=== PATIENT | male | born 1965 | race American Indian/Alaskan Native ===

== ENCOUNTER 2017-04-20 05:04 | Inpatient (IN) | payer MEDICARE, MEDICAID, OTHER ==
[2017-04-20 05:17] VITALS: BMI 31.5
--- NOTE | 2017-04-20 05:19 | C.PDOC ---
History Of Present Illness 51 year old male presents to the ED as a psych transfer who has been prescreened. Patient admits to drinking a case of beer a day and having suicidal ideations and depression. He denies any physical complaints at this time. Time Seen by Provider: 04/20/17 05:15 History Per: Patient History/Exam Limitations: no limitations Suicide/Self Injury Attempted (Context): None Severity: None Pain Scale Rating Of: 0 Associated Symptoms: Depression, Suicidal Thoughts Involuntary Hold By: None Recent travel outside of the [place]: No Additional History Per: Prior Records Past Medical History Reviewed: Historical Data, Nursing Documentation, Vital Signs Vital Signs: Last Vital Signs Temp 98.4 F 04/20/17 05:20 Pulse 64 04/20/17 05:20 Resp 20 04/20/17 05:20 BP 153/85 H 04/20/17 05:20 Pulse Ox 97 04/20/17 05:20 Family History: States: Unknown Family Hx Review Of Systems Constitutional: Negative for: Fever, Chills Cardiovascular: Negative for: Chest Pain, Palpitations Respiratory: Negative for: Cough, Shortness of Breath Gastrointestinal: Negative for: Nausea, Vomiting, Abdominal Pain, Diarrhea Psych: Positive for: Depression, Suicidal ideation Physical Exam - Physical Exam Appears: Non-toxic, No Acute Distress, Other (Patient is obese. Upon examination is playing guitar and singing. ) Skin: Warm, Dry Head: Atraumatic Eye(s): bilateral: Normal Inspection, PERRL, EOMI Oral Mucosa: Moist Neck: Supple Chest: Symmetrical, No Deformity Cardiovascular: Rhythm Regular Respiratory: No Rales, No Rhonchi, No Stridor, No Wheezing Gastrointestinal/Abdominal: Soft, No Tenderness, No Distention, No Guarding, No Rebound Extremity: Normal ROM, No Tenderness Neurological/Psych: Oriented x3 Medical Decision Making Medical Decision Making: tranfer in for psych/detox/depression pre-screened by psych and outpatient labs reviewed by this MD CONCRETE ANALYST, medically cleared for psych May require Medical Consult for control of DM Disposition Doctor Will See Patient In The: Hospital Counseled Patient/Family Regarding: Studies Performed, Diagnosis - Disposition Disposition: HOSPITALIZED Disposition Time: 05:19 Condition: GOOD - Clinical Impression Clinical Impression: Depression - Scribe Statement The provider has reviewed the documentation as recorded by the Scribcharisse Morrison All medical record entries made by the Scribe were at my direction and personally dictated by me. I have reviewed the chart and agree that the record accurately reflects my personal performance of the history, physical exam, medical decision making, and the department course for this patient. I have also personally directed, reviewed, and agree with the discharge instructions and disposition.
[2017-04-21] MEDS: Multiple Vitamins Tab PO SCH (09:12)
[2017-04-21] MEDS: Metoprolol Succinate 25 mg XL Tab PO SCH (10:05)
--- NOTE | 2017-04-21 10:25 | PCM.PYCHPN ---
Psychiatric Progress Note - Psychiatric Progress Note Patient seen today, length of contact: 16 min Patient Chief Complaint: I was feeling depressed and suicidal.' Problems Identified/Issues Discussed: Patient seen and evaluated, chart reviewed and discussed with the nurse. As per the staff, patient still appears isolated, depressed and withdrawn. Patient still reports depressed mood and reports at times feelings of hopelessness or helplessness. He reports withdrawal symptoms including cramps, back pain and sweating. He is compliant with his medications and denies any side effects. Supportive therapy and psychoeducation were given. Medication Change: Yes (Methdone taper, start Seroquel) Medical Record Reviewed: Yes Mental Status Examination - Cognitive Function Orientation: Person, Place, Situation, Time Memory: Intact Attention: WNL Concentration: Poor Association: WNL Fund of Knowledge: Poor - Mood Mood: Depressed, Anxious - Affect Affect: Constricted, Depressed - Speech Speech: Soft - Formal Thought Process Formal Thought Process: Hallucinations, Delusions, Paranoia - Suicidal Ideation Suicidal Ideation: No - Homicidal Ideation Homicidal Ideation: No Goal/Treatment Plan - Goal/Treatment Plan Need for Continued Stay: Discharge may exacerbated symptoms, Severe functional impairment Progress Toward Problem(s) and Goals/Treatment Plan: Major depressive disorder recurrent severe with psychotic features CBT Psychoeducation Supportive therapy, group therapy, individual therapy Celexa 20 mg by mouth daily Neurontin 300 mg by mouth 3 times a day Remeron 15 mg by mouth daily at bedtime Seroquel 50 mg by mouth daily at bedtime PTSD chronic CBT Psychoeducation Alcohol use disorder severe CBT Psychoeducation Supportive therapy, individual therapy Use [place] for abstinence Alcohol withdrawal uncomplicated CBT Psychoeducation Supportive therapy, individual therapy Ativan when necessary Folic acid/thiamine/multivitamin Opioid use disorder severe CBT Psychoeducation Supportive therapy, individual therapy Use [place] for abstinence Opioid withdrawal CBT Psychoeducation Supportive therapy, individual therapy Clonidine when necessary Methadone taper DM Continue prescribed medications Monitor signs and symptoms HTN Continue prescribed medications Monitor signs and symptoms CAD Continue prescribed medications Monitor signs and symptoms Hypercholestrolimia Continue prescribed medications Monitor signs and symptoms - Smoking Cessation Smoking Cessation Initiated: No
[2017-04-21 11:25] VITALS: RESP 20
--- NOTE | 2017-04-21 13:55 | PCM.PSYCH ---
Initial Psychiatric Evaluation - Initial Psychiatric Evaluation Type of Admission: Voluntary Legal Status: Capacity Chief Complaint (in patient's own words): I was feeling depressed and suicidal.' History of Present Illness and Precipitating Events: Patient is a 51-year-old AAM, who is currently homeless and currently unemployed came to the ED with depressed mood and an incomplete suicidal attempt. As pt tried to OD on heroin, cocaine and alcohol. As pert the patient he has been working as a [employer] in his youth with [employer], with a danna name Tarun Jovel. However, he states that he has a long history of bipolar disorder with psychosis, alcohol dependence and heroin dependence. He has been admitted multiple times in psychiatric hospitals due to depressed mood and suicidal attempts. As per the pt, soon after his last discharge from [place], [place] in 2002, he stopped taking medications and relapsed on drinking. He started abusing increasing amounts of alcohol. Pt states that he went to rehabs as well. He started abusing 15-20 bags of heroin and 2-5 pints of vodka daily. 3 days ago he became increasingly depressed and developed suicidal ideation and started hearing voices to kill himself. He OD on cocaine, 20 bags of heroin and one fifth of alcohol. His friend escorted him to the hospital for further evaluation. Patient reports AH command type, go and kill yourself, VH seeing shadows and persecutory delusions of being followed. He remained extremely depressed throughout the interview and states feelings of hopelessness, helplessness and worthlessness. He reports poor sleep and anhedonia. He also reports withdrawal symptoms i.e., sweating, headaches, anxiety, joint pains, nausea and abdominal cramps. Past psychiatric history Patient reports history of multiple inpatient psychiatric hospitalizations, last discharged from [facility], 2002. He denies any history of follow- up with any psychiatrist. Patient reports history of multiple suicidal attempts in the past, by OD and by jumping in front of the traffic Patient reports history of auditory and visual hallucinations in the past Past medical history DM, HTN, Hep C, C4-C5 fracture Current Medications: Active Medications Generic Name Dose Route Start Last Admin Trade Name Freq PRN Reason Stop Dose Admin Acetaminophen 650 mg 04/20/17 09:27 Tylenol 325mg Tab PO Q6 PRN Fever >100.4 F Diphenhydramine HCl 50 mg 04/20/17 09:27 Benadryl PO Q6 PRN Extra Pyramidal Symptoms Haloperidol 5 mg 04/20/17 09:27 Haldol PO Q8 PRN Moderate Agitation Haloperidol Lactate 5 mg 04/20/17 09:27 Haldol IM Q8 PRN Moderate Agitation Loperamide HCl 2 mg 04/20/17 09:27 Imodium PO Q8 PRN Diarrhea Ondansetron HCl 4 mg 04/20/17 09:27 04/20/17 10:29 Zofran Tab PO 4 mg Q8H PRN Administration Nausea/Vomiting Trazodone HCl 50 mg 04/20/17 22:00 Desyrel PO HS [facility] Past Psychiatric History - Past Psychiatric History Previous Treatment History: Inpatient Pertinent Medical Hx (Current Medical&Sleep Prob, Allergies): Allergies Allergy/AdvReac Type Severity Reaction Status Date / Time acetaminophen [From Tylenol] Allergy Verified 04/20/17 05:34 chlorpromazine Allergy Verified 04/20/17 05:34 [From Thorazine] divalproex sodium Allergy Verified 04/20/17 05:34 [From Depakote] ibuprofen [From Motrin] Allergy Verified 04/20/17 05:34 nitroglycerin Allergy Verified 04/20/17 05:34 penicillin G Allergy Verified 04/20/17 05:34 Clopidogrel [Plavix] 75 mg PO DAILY 04/20/17 Escitalopram [Lexapro] 20 mg PO DAILY 04/20/17 Furosemide [Lasix] 40 mg PO DAILY 04/20/17 Gabapentin [Gralise] 300 mg PO TID 04/20/17 Lisinopril [Zestril] 20 mg PO DAILY 04/20/17 Metoprolol Succinate [Toprol XL] 25 mg PO DAILY 04/20/17 Mirtazapine [Remeron] 15 mg PO HS 04/20/17 Review of Systems - Review of Systems All systems: reviewed and no additional remarkable complaints except - Psychiatric Psychiatric: Anxiety, Depression, Irritability, Suicidal Ideation Mental Status Examination - Personal Presentation Personal Presentation: Looks stated age - Affect Affect: Constricted, Depressed - Motor Activity Motor Activity: Calm - Reliability in Providing Information Reliability in Providing Information: Good - Speech Speech: Organized - Mood Mood: Depressed, Anxious - Formal Thought Process Formal Thought Process: Hallucinations, Delusions, Paranoia - Hallucinations/Delusions Hallucinations: Visual, Auditory Delusions: Persecution - Obsessions/Compulsions Obsessions: No Compulsions: No - Cognitive Functions Orientation: Person, Place, Situation, Time Sensorium: Alert Attention/Concentration: Attentive Abstract Thinking: [place] Estimate of Intelligence: Below average Judgement: Imparied, as evidence by: Poor judgement, Imparied, as evidence by: Lack of insight into illness - Risk Risk: Suicidal, Withdrawal, Diminished functioning - Strength & Assets Inventory Strength & Assets Inventory: Intelligence - Limitations Limitations: Living alone DSM 5 DX - DSM 5 DSM 5 Diagnosis: Major depressive disorder recurrent severe with psychotic features PTSD chronic Alcohol use disorder severe Alcohol withdrawal uncomplicated Opioid use disorder severe Opioid withdrawal Cocaine use disorder severe - Recommended/Plan of Treatment Treatment Recommendations and Plan of Treatment: Major depressive disorder recurrent severe with psychotic features CBT Psychoeducation Supportive therapy, group therapy, individual therapy Celexa 20 mg by mouth daily Neurontin 300 mg by mouth 3 times a day Remeron 15 mg by mouth daily at bedtime Trazodone 50 mg by mouth daily at bedtime PTSD chronic CBT Psychoeducation Alcohol use disorder severe CBT Psychoeducation Supportive therapy, individual therapy Use [place] for abstinence Alcohol withdrawal uncomplicated CBT Psychoeducation Supportive therapy, individual therapy Ativan when necessary Folic acid/thiamine/multivitamin Opioid use disorder severe CBT Psychoeducation Supportive therapy, individual therapy Use [place] for abstinence Opioid withdrawal CBT Psychoeducation Supportive therapy, individual therapy Clonidine when necessary Methadone taper DM Continue prescribed medications Monitor signs and symptoms HTN Continue prescribed medications Monitor signs and symptoms - Smoking Cessation Smoking Cessation Initiated: No
[2017-04-22] MEDS: Multiple Vitamins Tab PO SCH (09:30)
[2017-04-22] MEDS: Metoprolol Succinate 25 mg XL Tab PO SCH (09:31)
--- NOTE | 2017-04-22 13:30 | PCM.PYCHPN ---
Psychiatric Progress Note - Psychiatric Progress Note Patient seen today, length of contact: 16 min Patient Chief Complaint: I was feeling depressed Problems Identified/Issues Discussed: Patient seen and evaluated, chart reviewed and discussed with the nurse. The patient reports improvement in his mood and reports overall improvement in his depression and withdrawal s/s, but he remained isolated and continued to pace back and forth in the hallways. The pt is compliant with medications and reports no side-effects. Symptoms are improving but needs more time to stabilize. After care discussed, support and psychoeducation given. Medication Change: Yes (Methdone taper, start Seroquel) Medical Record Reviewed: Yes Mental Status Examination - Cognitive Function Orientation: Person, Place, Situation, Time Memory: Intact Attention: WNL Concentration: Poor Association: WNL Fund of Knowledge: Poor - Mood Mood: Depressed, Anxious - Affect Affect: Constricted, Depressed - Speech Speech: Soft - Formal Thought Process Formal Thought Process: No Impairment - Suicidal Ideation Suicidal Ideation: No - Homicidal Ideation Homicidal Ideation: No Goal/Treatment Plan - Goal/Treatment Plan Need for Continued Stay: Discharge may exacerbated symptoms, Severe functional impairment Progress Toward Problem(s) and Goals/Treatment Plan: Major depressive disorder recurrent severe with psychotic features CBT Psychoeducation Supportive therapy, group therapy, individual therapy Celexa 20 mg by mouth daily Neurontin 300 mg by mouth 3 times a day Remeron 15 mg by mouth daily at bedtime Seroquel 50 mg by mouth daily at bedtime PTSD chronic CBT Psychoeducation Alcohol use disorder severe CBT Psychoeducation Supportive therapy, individual therapy Use [place] for abstinence Alcohol withdrawal uncomplicated CBT Psychoeducation Supportive therapy, individual therapy Ativan when necessary Folic acid/thiamine/multivitamin Opioid use disorder severe CBT Psychoeducation Supportive therapy, individual therapy Use [place] for abstinence Opioid withdrawal CBT Psychoeducation Supportive therapy, individual therapy Clonidine when necessary Methadone taper DM Continue prescribed medications Monitor signs and symptoms HTN Continue prescribed medications Monitor signs and symptoms CAD Continue prescribed medications Monitor signs and symptoms Hypercholestrolimia Continue prescribed medications Monitor signs and symptoms - Smoking Cessation Smoking Cessation Initiated: No
--- NOTE | 2017-04-22 19:46 | CP.PCM.CON ---
<Jeanette Lr - Last Filed: 04/22/17 19:35> History of Present Illness - History of Present Illness History of Present Illness: Patient is a 51 y/o male with PMH of , who presented to ED with depressed mood and incomplete suicide attempt (tried to OD on heroin, cocaine, and alcohol). Patient consulted by medicine for bilateral lower extremity and pedal edema. Patient says his feet have been hurting him and swollen for the past 6 months. Patient says that although he is homeless he wears shoes. Patient's feet are tender to the touch. Patient says he also has numbness and tingling in both feet for a long time. Patient says he has abdominal pain, nausea, vomiting and diarrhea which he attributes to withdrawing from heroin. Patient denies chest pain and shortness of breath. PMD: none PMH: depression, DM, HTN, HLD, NC in 2011 with stent placement, DVT in 2011, neck surgery with metal plates and screws placed in 2014 PSocial:cocaine, heroin, alcohol (2 pints of vodka per day for 1 and half years) Allergies:Nitroglycerin- anaphylaxis Review of Systems - Constitutional Constitutional: absent: Fatigue, Headache - EENT Eyes: absent: Blurred Vision, Photophobia Ears: absent: Abnormal Hearing Nose/Mouth/Throat: absent: Nasal Congestion, Sinus Pain - Cardiovascular Cardiovascular: Edema, Leg Edema. absent: Chest Pain, Chest Pain at Rest, Chest Pain with Activity, Dyspnea on Exertion, Lightheadedness Additional comments: 2 + pitting edema bilaterally - Respiratory Respiratory: absent: Cough, Dyspnea, Wheezing, Chest Congestion, Excessive Mucous Production - Gastrointestinal Gastrointestinal: Abdominal Pain, Cramping, Diarrhea - Musculoskeletal Musculoskeletal: Myalgias, Tingling Additional comments: joint pain, b/l foot pain - Integumentary Integumentary: Dry Skin Additional comments: very dry skin on feet - Neurological Neurological: Numbness, Tingling Additional comments: feet have tingling and numbness - Psychiatric Psychiatric: Depression Additional comments: as per psych - Endocrine Endocrine: absent: Excessive Sweating, Polyuria - Hematologic/Lymphatic Hematologic: absent: Easy Bleeding, Easy Bruising Past Patient History - Infectious Disease Hx of Infectious Diseases: None - Past Social History Smoking Status: Heavy Smoker > 10 Cigarettes Daily - CARDIAC Hx Congestive Heart Failure: Yes Hx Hypertension: Yes - PULMONARY Hx Respiratory Disorders: No - NEUROLOGICAL Hx Neurological Disorder: No - HEENT Hx HEENT Problems: No - RENAL Hx Chronic Kidney Disease: No - ENDOCRINE/METABOLIC Hx Endocrine Disorders: No - HEMATOLOGICAL/ONCOLOGICAL Hx Hepatitis C: Yes - INTEGUMENTARY Hx Dermatological Problems: No - MUSCULOSKELETAL/RHEUMATOLOGICAL Hx Musculoskeletal Disorders: No - GASTROINTESTINAL Hx Gastrointestinal Disorders: No - GENITOURINARY/GYNECOLOGICAL Hx Genitourinary Disorders: No - PSYCHIATRIC Hx Substance Use: Yes - SURGICAL HISTORY Hx Coronary Artery Bypass Graft: Yes Hx Coronary Stent: Yes Other/Comment: cervical fusion C 4-C5 - ANESTHESIA Hx Anesthesia: Yes Hx Anesthesia Reactions: No Meds Allergies/Adverse Reactions: Allergies Allergy/AdvReac Type Severity Reaction Status Date / Time acetaminophen [From Tylenol] Allergy Verified 04/20/17 05:34 chlorpromazine Allergy Verified 04/20/17 05:34 [From Thorazine] divalproex sodium Allergy Verified 04/20/17 05:34 [From Depakote] ibuprofen [From Motrin] Allergy Verified 04/20/17 05:34 nitroglycerin Allergy Verified 04/20/17 05:34 penicillin G Allergy Verified 04/20/17 05:34 - Medications Medications: Current Medications Acetaminophen (Tylenol 325mg Tab) 650 mg PO Q6 PRN PRN Reason: Fever >100.4 F Last Admin: 04/22/17 13:18 Dose: 650 mg Aspirin (Ecotrin) 81 mg PO DAILY [facility] Last Admin: 04/22/17 09:30 Dose: 81 mg Benztropine Mesylate (Cogentin) 1 mg PO BID [facility] Citalopram Hydrobromide (Celexa) 20 mg PO DAILY [facility] Last Admin: 04/22/17 09:29 Dose: 20 mg Clonidine HCl (Catapres) 0.1 mg PO Q6H PRN PRN Reason: Symptoms of alcohol withdrawal Last Admin: 04/22/17 13:18 Dose: 0.1 mg Clopidogrel Bisulfate (Plavix) 75 mg PO DAILY [facility] Last Admin: 04/22/17 09:31 Dose: 75 mg Cyclobenzaprine HCl (Flexeril) 10 mg PO BID [facility] Last Admin: 04/22/17 17:25 Dose: 10 mg Diphenhydramine HCl (Benadryl) 50 mg PO Q6 PRN PRN Reason: Extra Pyramidal Symptoms Folic Acid (Folic Acid) 1 mg PO DAILY [facility] Last Admin: 04/22/17 09:30 Dose: 1 mg Furosemide (Lasix) 20 mg PO DAILY [facility] Last Admin: 04/22/17 09:31 Dose: 20 mg Gabapentin (Neurontin) 300 mg PO TID [facility] Last Admin: 04/22/17 17:24 Dose: 300 mg Haloperidol (Haldol) 5 mg PO Q8 PRN PRN Reason: Moderate Agitation Haloperidol (Haldol) 5 mg PO BID [facility] Last Admin: 04/22/17 17:24 Dose: 5 mg Haloperidol Lactate (Haldol) 5 mg IM Q8 PRN PRN Reason: Moderate Agitation Hydroxyzine HCl (Atarax) 50 mg PO Q6H PRN PRN Reason: Anxiety Last Admin: 04/22/17 06:30 Dose: 50 mg Lisinopril (Zestril) 20 mg PO DAILY [facility] Last Admin: 04/22/17 09:31 Dose: 20 mg Loperamide HCl (Imodium) 2 mg PO Q8 PRN PRN Reason: Diarrhea Last Admin: 04/21/17 20:51 Dose: 2 mg Lorazepam (Ativan) 1 mg PO Q6 PRN PRN Reason: Symptoms of alcohol withdrawl Last Admin: 04/22/17 18:15 Dose: 1 mg Metformin HCl (Glucophage) 1,000 mg PO BID [facility] Last Admin: 04/22/17 17:24 Dose: 1,000 mg Methadone HCl (Methadone) 10 mg PO DAILY [facility] PRN Reason: Taper Stop: 04/24/17 09:59 Last Admin: 04/22/17 09:29 Dose: 10 mg Metoprolol Succinate (Toprol Xl) 25 mg PO DAILY [facility] Last Admin: 04/22/17 09:31 Dose: 25 mg Mirtazapine (Remeron) 15 mg PO [facility] Last Admin: 04/21/17 21:20 Dose: 15 mg Multivitamins (Hexavitamin) 1 tab PO DAILY [facility] Last Admin: 04/22/17 09:30 Dose: 1 tab Ondansetron HCl (Zofran Tab) 4 mg PO Q8H PRN PRN Reason: Nausea/Vomiting Last Admin: 04/22/17 06:31 Dose: 4 mg Quetiapine Fumarate (Seroquel) 50 mg PO HS [facility] Last Admin: 04/21/17 21:20 Dose: 50 mg Rosuvastatin Calcium (Crestor) 10 mg PO HS [facility] Last Admin: 04/21/17 21:19 Dose: 10 mg Thiamine HCl (Vitamin B1 Tab) 100 mg PO DAILY [facility] Last Admin: 04/22/17 09:30 Dose: 100 mg Physical Exam - Constitutional Appears: Non-toxic, No Acute Distress - Head Exam Head Exam: ATRAUMATIC, NORMAL INSPECTION, NORMOCEPHALIC - Eye Exam Eye Exam: EOMI, Normal appearance, PERRL - Neck Exam Neck exam: Positive for: Normal Inspection - Respiratory Exam Respiratory Exam: Clear to Auscultation Bilateral, NORMAL BREATHING PATTERN. absent: Rales, Rhonchi, Wheezes, Respiratory Distress, Stridor - Cardiovascular Exam Cardiovascular Exam: REGULAR RHYTHM, RRR. absent: Gallop, Rubs - GI/Abdominal Exam GI & Abdominal Exam: Normal Bowel Sounds, Soft. absent: Tenderness - Extremities Exam Extremities exam: Positive for: full ROM, pedal edema, tenderness Additional comments: 2+ edema, tender to touch - Back Exam Back exam: FULL ROM, NORMAL INSPECTION. absent: paraspinal tenderness, rash noted - Neurological Exam Neurological exam: Alert, Oriented x3 - Psychiatric Exam Psychiatric exam: Depressed Additional comments: see psych notes - Skin Skin Exam: Dry, Normal Color Additional comments: very dry, scaling feet Results - Vital Signs Recent Vital Signs: Last Vital Signs Temp 97.8 F 04/22/17 07:57 Pulse 78 04/22/17 15:52 Resp 20 04/22/17 07:57 BP 132/73 04/22/17 15:52 Pulse Ox 97 04/20/17 05:20 - Labs Labs: Laboratory Results - last 24 hr 04/22/17 04/22/17 07:33 15:31 POC Glucose (mg/dL) 334 H 285 H Assessment & Plan (1) Lower extremity edema Assessment and Plan: LE edema and tenderness for 6 months Echo Venous dopplers b/l foot xrays podiatry consulted, Dr. Torres, william appreciated Status: Acute (2) Diabetes Assessment and Plan: HgA1c accuchecks q ACHS Metformin 1000 mg PO BID [facility] Neurontin 300 mg po TID urine microalbumin Status: Acute (3) Hypertension Assessment and Plan: Lasix 20 mg PO Daily Lisinopril 20 mg PO daily Stop metoprolol (due to cocaine abuse) start Cardezem 30 q8h Status: Acute (4) Hx of myocardial infarction Assessment and Plan: aspirin 81 mg po daily clopidogrel 75 mg po daily (due to stent) cardezem 30 po q8h crestor 10 mg po HS lisinopril 20 mg po daily Status: Acute (5) Joint pain Assessment and Plan: ESR, CRP, JAMES, Rheumatoid Factor, and Uric Acid ordered Status: Acute (6) Depression Assessment and Plan: continue with psych for management Status: Acute (7) Prophylactic measure Assessment and Plan: Pepcid 20 mg PO BID Status: Acute <Larissa Ortiz V - Last Filed: 04/23/17 00:07> Meds - Medications Medications: Current Medications Acetaminophen (Tylenol 325mg Tab) 650 mg PO Q6 PRN PRN Reason: Fever >100.4 F Last Admin: 04/22/17 13:18 Dose: 650 mg Aspirin (Ecotrin) 81 mg PO DAILY [facility] Last Admin: 04/22/17 09:30 Dose: 81 mg Benztropine Mesylate (Cogentin) 1 mg PO BID [facility] Last Admin: 04/22/17 20:15 Dose: 1 mg Citalopram Hydrobromide (Celexa) 20 mg PO DAILY [facility] Last Admin: 04/22/17 09:29 Dose: 20 mg Clonidine HCl (Catapres) 0.1 mg PO Q6H PRN PRN Reason: Symptoms of alcohol withdrawal Last Admin: 04/22/17 13:18 Dose: 0.1 mg Clopidogrel Bisulfate (Plavix) 75 mg PO DAILY [facility] Last Admin: 04/22/17 09:31 Dose: 75 mg Cyclobenzaprine HCl (Flexeril) 10 mg PO BID [facility] Last Admin: 04/22/17 17:25 Dose: 10 mg Diltiazem HCl (Cardizem) 30 mg PO Q8H [facility] Diphenhydramine HCl (Benadryl) 50 mg PO Q6 PRN PRN Reason: Extra Pyramidal Symptoms Famotidine (Pepcid) 20 mg PO BID [facility] Folic Acid (Folic Acid) 1 mg PO DAILY [facility] Last Admin: 04/22/17 09:30 Dose: 1 mg Furosemide (Lasix) 20 mg PO DAILY [facility] Last Admin: 04/22/17 09:31 Dose: 20 mg Gabapentin (Neurontin) 300 mg PO TID [facility] Last Admin: 04/22/17 17:24 Dose: 300 mg Haloperidol (Haldol) 5 mg PO Q8 PRN PRN Reason: Moderate Agitation Haloperidol (Haldol) 5 mg PO BID [facility] Last Admin: 04/22/17 17:24 Dose: 5 mg Haloperidol Lactate (Haldol) 5 mg IM Q8 PRN PRN Reason: Moderate Agitation Hydroxyzine HCl (Atarax) 50 mg PO Q6H PRN PRN Reason: Anxiety Last Admin: 04/22/17 19:38 Dose: 50 mg Insulin Human Regular (Novolin R) 0 unit [facility] PRN Reason: Protocol Last Admin: 04/22/17 21:49 Dose: Not Given Ketorolac Tromethamine (Toradol) 30 mg IVP Q6 [facility] Lisinopril (Zestril) 20 mg PO DAILY [facility] Last Admin: 04/22/17 09:31 Dose: 20 mg Loperamide HCl (Imodium) 2 mg PO Q8 PRN PRN Reason: Diarrhea Last Admin: 04/21/17 20:51 Dose: 2 mg Lorazepam (Ativan) 1 mg PO Q6 PRN PRN Reason: Symptoms of alcohol withdrawl Last Admin: 04/22/17 18:15 Dose: 1 mg Metformin HCl (Glucophage) 1,000 mg PO BID [facility] Last Admin: 04/22/17 17:24 Dose: 1,000 mg Methadone HCl (Methadone) 10 mg PO DAILY [facility] PRN Reason: Taper Stop: 04/24/17 09:59 Last Admin: 04/22/17 09:29 Dose: 10 mg Metoprolol Succinate (Toprol Xl) 25 mg PO DAILY [facility] Last Admin: 04/22/17 09:31 Dose: 25 mg Mirtazapine (Remeron) 15 mg PO [facility] Last Admin: 04/22/17 23:01 Dose: 15 mg Multivitamins (Hexavitamin) 1 tab PO DAILY [facility] Last Admin: 04/22/17 09:30 Dose: 1 tab Ondansetron HCl (Zofran Tab) 4 mg PO Q8H PRN PRN Reason: Nausea/Vomiting Last Admin: 04/22/17 06:31 Dose: 4 mg Quetiapine Fumarate (Seroquel) 50 mg PO [facility] Last Admin: 04/22/17 23:01 Dose: 50 mg Rosuvastatin Calcium (Crestor) 10 mg PO HS [facility] Last Admin: 04/22/17 21:46 Dose: 10 mg Thiamine HCl (Vitamin B1 Tab) 100 mg PO DAILY [facility] Last Admin: 04/22/17 09:30 Dose: 100 mg Results - Vital Signs Recent Vital Signs: Last Vital Signs Temp 98.5 F 04/22/17 21:58 Pulse 77 04/22/17 21:58 Resp 20 04/22/17 21:58 BP 133/77 04/22/17 21:58 Pulse Ox 100 04/22/17 21:58 - Labs Labs: Laboratory Results - last 24 hr 04/22/17 04/22/17 04/22/17 07:33 15:31 20:11 POC Glucose (mg/dL) 334 H 285 H 261 H Attending/Attestation - Attestation I have personally seen and examined this patient.: Yes I have fully participated in the care of the patient.: Yes I have reviewed all pertinent clinical information: Yes Notes (Text): Patient seen, examined and case discussed with day-time administration internship. Patient with history of insulin dependent diabetes, history of noncompliance secondary to homelessness, history of NC with stent in 2011, hypertension, hyperlipidemia undergoing psych workup for depression, polysubstance abuse. Medicine consulted for foot deformity. Patient reports b/l leg swelling over time and swelling over both feet, patient reports shoes in spite of homelessness. Patient reports he is being tapered off heroin with methadone. Discussed orders with day-time administration internship. (1) Lower extremity edema Assessment and Plan: * LE edema and tenderness for 6 months * Echo check EF * Venous dopplers r/o DVT * b/l foot xrays given swelling over lateral aspect of right foot * podiatry consulted, Dr. Torres, help appreciated Status: Acute (2) Diabetes Assessment and Plan: * HgA1c, Lipid in AM * accuchecks q ACHS * Metformin 1000 mg PO BID * Neurontin 300 mg po TID * urine microalbumin Status: Chronic (3) Hypertension Assessment and Plan: * Lasix 20 mg PO Daily * Lisinopril 20 mg PO daily * Stop metoprolol (due to cocaine abuse) start Cardezem 30 q8h Status: Chronic (4) Hx of myocardial infarction Assessment and Plan: * aspirin 81 mg po daily * clopidogrel 75 mg po daily (due to stent) * cardezem 30 po q8h * crestor 10 mg po HS * lisinopril 20 mg po daily * d/c lopressor given patient's recent epi. Status: Acute (5) Joint pain Assessment and Plan: * ESR, CRP, JAMES, Rheumatoid Factor, and Uric Acid ordered Status: Acute (6) Depression Assessment and Plan: continue with psych for management Status: Acute (7) Prophylactic measure Assessment and Plan: Pepcid 20 mg PO BID Status: Acute
[2017-04-22] MEDS: (Novolin R) Insulin Human Regular 100 units/ml vial SC SCH (21:49)
--- NOTE | 2017-04-23 00:43 | CP.PCM.PN ---
<AkuaMari - Last Filed: 04/23/17 00:38> Subjective - Date & Time of Evaluation Date of Evaluation: 04/23/17 Time of Evaluation: 00:00 - Subjective Subjective: Medicine Note for Dr. Ortiz, Patient was seen and examined at bedside in where the patient was complaining of chest pain that radiated to the left side of his jaw. He rated the pain 10/10. EKG, CODI, Labs were ordered. Due to the patient's extensive cardiac history, patient was transferred to telemetry. Denied fever, chills, SOB , abdominal pain, n/v/d/c, or urinary symptoms. Objective - Vital Signs/Intake and Output Vital Signs (last 24 hours): Temp Pulse Resp BP Pulse Ox 98.5 F 77 20 133/77 100 04/22/17 21:58 04/22/17 21:58 04/22/17 21:58 04/22/17 21:58 04/22/17 21:58 - Medications Medications: Current Medications Acetaminophen (Tylenol 325mg Tab) 650 mg PO Q6 PRN PRN Reason: Fever >100.4 F Last Admin: 04/22/17 13:18 Dose: 650 mg Aspirin (Ecotrin) 81 mg PO DAILY [facility] Last Admin: 04/22/17 09:30 Dose: 81 mg Benztropine Mesylate (Cogentin) 1 mg PO BID [facility] Last Admin: 04/22/17 20:15 Dose: 1 mg Citalopram Hydrobromide (Celexa) 20 mg PO DAILY [facility] Last Admin: 04/22/17 09:29 Dose: 20 mg Clonidine HCl (Catapres) 0.1 mg PO Q6H PRN PRN Reason: Symptoms of alcohol withdrawal Last Admin: 04/22/17 13:18 Dose: 0.1 mg Clopidogrel Bisulfate (Plavix) 75 mg PO DAILY [facility] Last Admin: 04/22/17 09:31 Dose: 75 mg Cyclobenzaprine HCl (Flexeril) 10 mg PO BID [facility] Last Admin: 04/22/17 17:25 Dose: 10 mg Diltiazem HCl (Cardizem) 30 mg PO Q8H [facility] Diphenhydramine HCl (Benadryl) 50 mg PO Q6 PRN PRN Reason: Extra Pyramidal Symptoms Famotidine (Pepcid) 20 mg PO BID [facility] Folic Acid (Folic Acid) 1 mg PO DAILY [facility] Last Admin: 04/22/17 09:30 Dose: 1 mg Furosemide (Lasix) 20 mg PO DAILY [facility] Last Admin: 04/22/17 09:31 Dose: 20 mg Gabapentin (Neurontin) 300 mg PO TID [facility] Last Admin: 04/22/17 17:24 Dose: 300 mg Haloperidol (Haldol) 5 mg PO Q8 PRN PRN Reason: Moderate Agitation Haloperidol (Haldol) 5 mg PO BID [facility] Last Admin: 04/22/17 17:24 Dose: 5 mg Haloperidol Lactate (Haldol) 5 mg IM Q8 PRN PRN Reason: Moderate Agitation Hydroxyzine HCl (Atarax) 50 mg PO Q6H PRN PRN Reason: Anxiety Last Admin: 04/22/17 19:38 Dose: 50 mg Insulin Human Regular (Novolin R) 0 unit SC [facility], [facility] PRN Reason: Protocol Last Admin: 04/22/17 21:49 Dose: Not Given Ketorolac Tromethamine (Toradol) 30 mg IVP Q6 [facility] Lisinopril (Zestril) 20 mg PO DAILY [facility] Last Admin: 04/22/17 09:31 Dose: 20 mg Loperamide HCl (Imodium) 2 mg PO Q8 PRN PRN Reason: Diarrhea Last Admin: 04/21/17 20:51 Dose: 2 mg Lorazepam (Ativan) 1 mg PO Q6 PRN PRN Reason: Symptoms of alcohol withdrawl Last Admin: 04/22/17 18:15 Dose: 1 mg Metformin HCl (Glucophage) 1,000 mg PO BID [facility] Last Admin: 04/22/17 17:24 Dose: 1,000 mg Methadone HCl (Methadone) 10 mg PO DAILY [facility] PRN Reason: Taper Stop: 04/24/17 09:59 Last Admin: 04/22/17 09:29 Dose: 10 mg Metoprolol Succinate (Toprol Xl) 25 mg PO DAILY [facility] Last Admin: 04/22/17 09:31 Dose: 25 mg Mirtazapine (Remeron) 15 mg PO [facility] Last Admin: 04/22/17 23:01 Dose: 15 mg Multivitamins (Hexavitamin) 1 tab PO DAILY [facility] Last Admin: 04/22/17 09:30 Dose: 1 tab Ondansetron HCl (Zofran Tab) 4 mg PO Q8H PRN PRN Reason: Nausea/Vomiting Last Admin: 04/22/17 06:31 Dose: 4 mg Quetiapine Fumarate (Seroquel) 50 mg PO HS [facility] Last Admin: 04/22/17 23:01 Dose: 50 mg Rosuvastatin Calcium (Crestor) 10 mg PO HS [facility] Last Admin: 04/22/17 21:46 Dose: 10 mg Thiamine HCl (Vitamin B1 Tab) 100 mg PO DAILY [facility] Last Admin: 04/22/17 09:30 Dose: 100 mg - Constitutional Appears: No Acute Distress - Head Exam Head Exam: NORMAL INSPECTION, NORMOCEPHALIC - ENT Exam ENT Exam: Mucous Membranes Moist - Respiratory Exam Respiratory Exam: Clear to Ausculation Bilateral, NORMAL BREATHING PATTERN. absent: Wheezes - Cardiovascular Exam Cardiovascular Exam: REGULAR RHYTHM - GI/Abdominal Exam GI & Abdominal Exam: Soft, Normal Bowel Sounds. absent: Tenderness - Extremities Exam Extremities Exam: Normal Inspection, Pedal Edema. absent: Tenderness - Neurological Exam Neurological Exam: Alert, Awake, Oriented x3 - Skin Skin Exam: Dry, Intact, Normal Color, Warm Assessment and Plan - Assessment and Plan (Free Text) Plan: Chest Pain Assessment and Plan: * EKG x 2 ordered: initial EKG showed NSR @ 67 BPM, with nonspecific ST and T wave abnormalities * Patient transferred to telemetry * F/U EKG, CODI x3, labs Status: Acute Lower extremity edema Assessment and Plan: * LE edema and tenderness for 6 months * Echo check EF * Venous dopplers r/o DVT * b/l foot xrays given swelling over lateral aspect of right foot * podiatry consulted, Dr. Torres, help appreciated Status: Acute Diabetes Assessment and Plan: * HgA1c, Lipid in AM * accuchecks q ACHS * Metformin 1000 mg PO BID * Neurontin 300 mg po TID * urine microalbumin Status: Chronic Hypertension Assessment and Plan: * Lasix 20 mg PO Daily * Lisinopril 20 mg PO daily * Stop metoprolol (due to cocaine abuse) start Cardezem 30 q8h Status: Chronic Hx of myocardial infarction Assessment and Plan: * aspirin 81 mg po daily * clopidogrel 75 mg po daily (due to stent) * cardezem 30 po q8h * crestor 10 mg po HS * lisinopril 20 mg po daily * d/c lopressor given patient's recent epi. Status: Acute Joint pain Assessment and Plan: * ESR, CRP, JAMES, Rheumatoid Factor, and Uric Acid ordered Status: Acute Depression Assessment and Plan: continue with psych for management Status: Acute Prophylactic measure Assessment and Plan: Pepcid 20 mg PO BID Status: Acute <Larissa Ortiz V - Last Filed: 04/23/17 18:12> Objective - Vital Signs/Intake and Output Vital Signs (last 24 hours): Temp Pulse Resp BP Pulse Ox 97.5 F L 70 20 138/68 96 04/23/17 16:00 04/23/17 16:00 04/23/17 16:00 04/23/17 16:00 04/23/17 16:00 Intake and Output: 04/23/17 04/23/17 06:59 18:59 Intake Total 400 Balance 400 - Medications Medications: Current Medications Acetaminophen (Tylenol 325mg Tab) 650 mg PO Q6 PRN PRN Reason: Fever >100.4 F Last Admin: 04/22/17 13:18 Dose: 650 mg Acetaminophen (Tylenol 325mg Tab) 650 mg PO Q6 PRN PRN Reason: Pain, moderate (4-7) Last Admin: 04/23/17 12:44 Dose: 650 mg Aspirin (Ecotrin) 81 mg PO DAILY [facility] Last Admin: 04/23/17 09:19 Dose: 81 mg Benztropine Mesylate (Cogentin) 1 mg PO BID [facility] Last Admin: 04/23/17 09:18 Dose: 1 mg Citalopram Hydrobromide (Celexa) 20 mg PO DAILY [facility] Last Admin: 04/23/17 09:17 Dose: 20 mg Clonidine HCl (Catapres) 0.1 mg PO Q6H PRN PRN Reason: Symptoms of alcohol withdrawal Last Admin: 04/22/17 13:18 Dose: 0.1 mg Clopidogrel Bisulfate (Plavix) 75 mg PO DAILY [facility] Last Admin: 04/23/17 09:16 Dose: 75 mg Cyclobenzaprine HCl (Flexeril) 10 mg PO BID [facility] Last Admin: 04/23/17 09:16 Dose: 10 mg Diltiazem HCl (Cardizem) 30 mg PO Q8H [facility] Last Admin: 04/23/17 14:27 Dose: 30 mg Diphenhydramine HCl (Benadryl) 50 mg PO Q6 PRN PRN Reason: Extra Pyramidal Symptoms Famotidine (Pepcid) 20 mg PO BID [facility] Last Admin: 04/23/17 09:17 Dose: 20 mg Folic Acid (Folic Acid) 1 mg PO DAILY [facility] Last Admin: 04/23/17 09:17 Dose: 1 mg Furosemide (Lasix) 20 mg PO DAILY [facility] Last Admin: 04/23/17 09:15 Dose: 20 mg Gabapentin (Neurontin) 300 mg PO TID [facility] Last Admin: 04/23/17 13:34 Dose: 300 mg Haloperidol (Haldol) 5 mg PO Q8 PRN PRN Reason: Moderate Agitation Haloperidol (Haldol) 5 mg PO BID [facility] Last Admin: 04/23/17 09:20 Dose: 5 mg Haloperidol Lactate (Haldol) 5 mg IM Q8 PRN PRN Reason: Moderate Agitation Hydroxyzine HCl (Atarax) 50 mg PO Q6H PRN PRN Reason: Anxiety Last Admin: 04/23/17 08:10 Dose: 50 mg Insulin Human Regular (Novolin R) 0 unit SC [facility] PRN Reason: Protocol Last Admin: 04/23/17 12:46 Dose: 1 unit Lisinopril (Zestril) 20 mg PO DAILY [facility] Last Admin: 04/23/17 09:18 Dose: 20 mg Loperamide HCl (Imodium) 2 mg PO Q8 PRN PRN Reason: Diarrhea Last Admin: 04/21/17 20:51 Dose: 2 mg Lorazepam (Ativan) 1 mg PO Q6 PRN PRN Reason: Symptoms of alcohol withdrawl Last Admin: 04/23/17 12:44 Dose: 1 mg Metformin HCl (Glucophage) 1,000 mg PO BID [facility] Last Admin: 04/23/17 09:18 Dose: 1,000 mg Methadone HCl (Methadone) 5 mg PO DAILY [facility]1983 PRN Reason: Taper Stop: 04/24/17 09:59 Last Admin: 04/23/17 09:22 Dose: 5 mg Metoprolol Succinate (Toprol Xl) 25 mg PO DAILY [facility] Last Admin: 04/22/17 09:31 Dose: 25 mg Mirtazapine (Remeron) 15 mg PO [facility] Last Admin: 04/22/17 23:01 Dose: 15 mg Multivitamins (Hexavitamin) 1 tab PO DAILY [facility] Last Admin: 04/23/17 09:15 Dose: 1 tab Ondansetron HCl (Zofran Tab) 4 mg PO Q8H PRN PRN Reason: Nausea/Vomiting Last Admin: 04/22/17 06:31 Dose: 4 mg Quetiapine Fumarate (Seroquel) 50 mg PO HS [facility] Last Admin: 04/22/17 23:01 Dose: 50 mg Rosuvastatin Calcium (Crestor) 10 mg PO [facility] Last Admin: 04/22/17 21:46 Dose: 10 mg Thiamine HCl (Vitamin B1 Tab) 100 mg PO DAILY [facility] Last Admin: 04/23/17 09:17 Dose: 100 mg - Labs Labs: 04/23/17 08:11 04/23/17 08:11 Attending/Attestation - Attestation I have personally seen and examined this patient.: Yes I have fully participated in the care of the patient.: Yes I have reviewed all pertinent clinical information, including history, physical exam and plan: Yes Notes (Text): Patient seen, examined, and case discussed with day-news internship. Patient denies chest pain, denies shortness of breathe, denies abdominal pain, denies nausea, denies vomitting, denies dysuria, and report foot pain. Discussed with podiatry, patient will be evaluated with ultrasound and will likely need drainage. Foot Xray (04/23/17): diffuse of pedal edema on right greater than left with more localized edema subcutanous swelling along the lateral margins of both feet at the level of base of metatarsals right greater than left. Patient unable to have MRI given patient has metal in the neck. Patient wants increasing dose of Methadone. Patient is withdrawing from heroin. Patient threatening to leave against medical advice. Discussed with psych, Dr. Telles, patient may have extra dose of Methadone 5mg once if needed given his withdrawal from heroin. Discussed with nurse. Patient ordered for one time dose of Solumedrol 40mg IV X1 to reduce inflammation regarding the foot site. Cardiology build automation engineer--Dr. Travis simms given patient extensive cardiac history. Assessment/Plan (1) Lower extremity edema Assessment and Plan: * podiatry consulted, Dr. Torres, help appreciated * Foot Xray (04/23/17): diffuse of pedal edema on right greater than left with more localized edema subcutanous swelling along the lateral margins of both feet at the level of base of metatarsals right greater than left. Patient unable to have MRI given patient has metal in the neck. * Podiatry will come in tomorrow to assess the foot and possible drainage with bedside ultrasound * LE edema and tenderness for 6 months * Echo check EF: pending * Venous dopplers r/o DVT Pending Status: Acute (2) Diabetes Assessment and Plan: * Uncontrolled * HgA1c: 7.2 Lipid panel: 52 Cholestrol: 114, LDL: 62, HDL: 38 * insulin sliding scale subq * Accuchecks q ACHS * Metformin 1000 mg PO BID * Neurontin 300 mg po TID * Lisinopril 20mg PO daily * urine microalbumin Status: Chronic (3) Hypertension Assessment and Plan: * Lasix 20 mg PO Daily * Lisinopril 20 mg PO daily * Cardizem 30mg PO Q 8hours Status: Chronic (4) Hx of myocardial infarction Assessment and Plan: * Aspirin 81 mg po daily * clopidogrel 75 mg po daily (due to stent) * Crestor 10 mg po HS * lisinopril 20 mg po daily * Cardizem 30mg PO Q 8hours Status: Acute (5) Joint pain Assessment and Plan: * ESR: 26, CRP: 9.86, JAMES, Rheumatoid Factor, and Uric Acid: 7.4 * Flexeril 10mg PO bid Status: Acute (6) Depression Assessment and Plan: * continue with psych for management * Haldol 5mg PO Q8 PRN moderate agitation * Haldol 5mg PO bid * Haldol 5mg IM Q 8 PRN moderate agitation * Atarax 50mg PO Q 6hour PRN anxiety * Seroquel 50mg POqHS * Remeron 15mg POqHS * Benadryl 50mg PO Q 6 PRN * Cogentin 1mg PO bid Status: Acute (7) Opioid disorder Assessment and Plan: * Atarax 50mg PO Q 6hour PRN anxiety * Methadone 5mg PO scheduled per psych Status: Acute (8) Alcohol disorder Assessment and Plan: * Ativan 1mg PO Q 6hour PRN alcohol withdrawal * MVI 1 gayle PO daily * Thiamine 100mg PO daily * Clonidine 0.1mg PO Q 6hour PRN alcohol Status: Acute (9) Prophylactic measure Assessment and Plan: * Pepcid 20 mg PO BID * Tylenol 650mg POQ 6PN > T: 100.4F * Tylenol 650mg PO Q 6PRN moderate pain * Flexeril 10mg PO bid Status: Acute
[2017-04-23 01:40] LABS: HEMOGLOBIN 10.3 g/dL (12.0-18.0); MEAN CELL VOLUME 87.8 fL (80.0-94.0); MEAN CORPUSCULAR HEMOGLOBIN 27.3 pg (27.0-31.0); MEAN CORPUSCULAR HGB CONC 31.1 g/dL (33.0-37.0); MEAN PLATELET VOLUME 9.4 fL (7.2-11.7); RBC 3.79 Mil/uL (4.40-5.90); WHITE BLOOD COUNT 5.9 K/uL (4.8-10.8)
[2017-04-23 01:51] LABS: BLOOD UREA NITROGEN 21 mg/dL (9-20); GFR AFRICAN-AMERICAN > 60; GFR NON-AFRICAN AMERICAN > 60
[2017-04-23 01:52] LABS: CALCIUM 8.9 mg/dl (8.6-10.4); MAGNESIUM 1.9 mg/dL (1.6-2.3)
[2017-04-23 02:00] LABS: CK-MB 1.84 ng/mL (0.0-3.38)
[2017-04-23] MEDS: (Novolin R) Insulin Human Regular 100 units/ml vial SC SCH ×4 (08:01→22:15)
[2017-04-23 08:20] LABS: BASO % 0.2 % (0.0-2.0); EOS # 0.2 K/uL (0.0-0.7); EOS % 4.3 % (0.0-4.0); HEMOGLOBIN 10.3 g/dL (12.0-18.0); LYMPH % 34.7 % (20.0-40.0); MEAN CORPUSCULAR HEMOGLOBIN 27.4 pg (27.0-31.0); MEAN CORPUSCULAR HGB CONC 31.4 g/dL (33.0-37.0); MEAN PLATELET VOLUME 9.2 fL (7.2-11.7); MONO # 0.6 K/uL (0.0-0.8); MONO % 11.2 % (0.0-10.0); NEUT # 2.8 K/uL (1.8-7.0); NEUT % 49.6 % (50.0-75.0); NRBC % 0.1 % (0.0-2.0); RBC 3.77 Mil/uL (4.40-5.90); RED CELL DISTRIBUTION WIDTH 15.6 % (11.5-14.5); WHITE BLOOD COUNT 5.7 K/uL (4.8-10.8)
[2017-04-23 08:48] LABS: CK-MB 1.78 ng/mL (0.0-3.38)
[2017-04-23 08:54] LABS: ALBUMIN 3.2 g/dL (3.5-5.0)
[2017-04-23 08:57] LABS: ALB/GLOB RATIO 0.9 (1.0-2.1); ALT/SGPT 32 U/L (21-72); AST/SGOT 29 U/L (17-59); BLOOD UREA NITROGEN 18 mg/dL (9-20); GFR AFRICAN-AMERICAN > 60; GFR NON-AFRICAN AMERICAN > 60; URIC ACID 7.4 mg/dL (3.5-8.5)
[2017-04-23 08:58] LABS: CALCIUM 8.8 mg/dl (8.6-10.4); HDL CHOLESTEROL 38 mg/dL (30-70); MAGNESIUM 1.9 mg/dL (1.6-2.3)
[2017-04-23 09:09] LABS: LDL CHOLESTEROL 62 mg/dL (0-129)
[2017-04-23] MEDS: Multiple Vitamins Tab PO SCH (09:15)
[2017-04-23 15:24] LABS: CK-MB 1.24 ng/mL (0.0-3.38)
--- NOTE | 2017-04-23 17:40 | RAD ---
PROCEDURE: Bilateral feet dated 04/22/2017 HISTORY: Bilateral pedal edema COMPARISON: No prior study available comparison FINDINGS: BONES: Right foot findings: : The current study reveals no evidence of acute displaced fracture nor dislocation. The osseous structures appear grossly intact. No obvious cortical destructive changes. There is diffuse subcutaneous edema with more localized edema/swelling along the lateral margin of the midfoot region at the level of the base of the 5th metatarsal. The findings could be vascular in origin although there is no evidence of gas in the soft tissues, the possibility of a cellulitis must be considered as well. Mild degenerative changes of the dorsal bones of the midfoot. Small pole plantar calcaneal enthesophyte noted. Mild hallux valgus deformity with overgrowth of the head of the 1st metatarsal and mild DJD 1st MTP joint. There may be a small subchondral cyst along distal medial aspect of the head of the 1st metatarsal. Left foot findings: There is mild diffuse on this subcutaneous edema with somewhat more localized mild focal area of edema/ swelling along the lateral midfoot region at at the level of the base of the 5th metatarsal. Findings are of uncertain etiology though could be vascular in origin. The possibility of the cellulitis despite the lack of subcutaneous emphysema not excluded. Clinical correlation recommended. Minor degenerative changes of the dorsal bones of the midfoot. Very slight hallux valgus deformity with prominence of the head of the 1st metatarsal and minimal DJD 1st MTP joint Impression: Diffuse of pedal edema on right greater than left with more localized edema subcutaneous swelling along the lateral margins of both feet at the level of the base of the metatarsals right greater than left. Rule out vascular versus infectious/inflammatory etiologies. Consider followup MRI as the possibility of early osteomyelitis cannot be excluded. .
--- NOTE | 2017-04-23 17:54 | CP.PCM.CON ---
History of Present Illness - History of Present Illness History of Present Illness: 51 y/o homeless male with PMHx of DM, HTN, HLD, [place] with stent placement, DVT, suicidal ideations, depression, anxiety seen at bedside by podiatry for pain and swelling in both legs and feet. Patient states he has noticed swelling in both legs for approx 4-8 months in duration. Patient states the pain comes when he is walking. Patient also notices the prominences on both feet for the same 4- 8 month duration and states these are painful to the touch or with pressure. Patient states his feet crack a lot and are very dry. Patient states that he moves around often and does not see any regular doctors. Patient states he is borderline diabetic and does not see a doctor for his diabetes or his feet. Patient denies any F/C/N/V/SOB. PSHx: neck surgery, stent placement All: nitroglycerin, penicillins Social: Hx of alcoholism and still currently drinks; 1/2 pack cigarettes per day ; social marijuana use, hx of cocaine overdoses Review of Systems - Review of Systems All systems: reviewed and no additional remarkable complaints except (per HPI) Past Patient History - Infectious Disease Hx of Infectious Diseases: None - Past Social History Smoking Status: Light Smoker < 10 Cigarettes Daily - CARDIAC Hx Congestive Heart Failure: Yes Hx Hypertension: Yes - PULMONARY Hx Respiratory Disorders: No - NEUROLOGICAL Hx Neurological Disorder: No - HEENT Hx HEENT Problems: No - RENAL Hx Chronic Kidney Disease: No - ENDOCRINE/METABOLIC Hx Endocrine Disorders: No - HEMATOLOGICAL/ONCOLOGICAL Hx Hepatitis C: Yes - INTEGUMENTARY Hx Dermatological Problems: No - MUSCULOSKELETAL/RHEUMATOLOGICAL Hx Musculoskeletal Disorders: No Hx Falls: Yes - GASTROINTESTINAL Hx Gastrointestinal Disorders: No - GENITOURINARY/GYNECOLOGICAL Hx Genitourinary Disorders: No - PSYCHIATRIC Hx Substance Use: Yes - SURGICAL HISTORY Hx Coronary Artery Bypass Graft: Yes Hx Coronary Stent: Yes Other/Comment: cervical fusion C 4-C5 - ANESTHESIA Hx Anesthesia: Yes Hx Anesthesia Reactions: No Meds Allergies/Adverse Reactions: Allergies Allergy/AdvReac Type Severity Reaction Status Date / Time chlorpromazine Allergy Severe THROAT Verified 04/23/17 01:42 [From Thorazine] SWEELS ibuprofen [From Motrin] Allergy Severe INTERNAL Verified 04/23/17 01:42 BLEEDING nitroglycerin Allergy Severe INTERNAL Verified 04/23/17 01:42 BLEEDING penicillin G Allergy Mild PALPITATION Verified 04/23/17 01:42 acetaminophen [From Tylenol] Allergy CRAMPS Verified 04/23/17 01:42 divalproex sodium Allergy SEIZURE Verified 04/23/17 01:42 [From Depakote] ketorolac [From Toradol] AdvReac INTERNAL Verified 04/23/17 01:42 BLEEDING - Medications Medications: Current Medications Acetaminophen (Tylenol 325mg Tab) 650 mg PO Q6 PRN PRN Reason: Fever >100.4 F Last Admin: 04/22/17 13:18 Dose: 650 mg Acetaminophen (Tylenol 325mg Tab) 650 mg PO Q6 PRN PRN Reason: Pain, moderate (4-7) Last Admin: 04/23/17 12:44 Dose: 650 mg Aspirin (Ecotrin) 81 mg PO DAILY [facility] Last Admin: 04/23/17 09:19 Dose: 81 mg Benztropine Mesylate (Cogentin) 1 mg PO BID [facility] Last Admin: 04/23/17 09:18 Dose: 1 mg Citalopram Hydrobromide (Celexa) 20 mg PO DAILY [facility] Last Admin: 04/23/17 09:17 Dose: 20 mg Clonidine HCl (Catapres) 0.1 mg PO Q6H PRN PRN Reason: Symptoms of alcohol withdrawal Last Admin: 04/22/17 13:18 Dose: 0.1 mg Clopidogrel Bisulfate (Plavix) 75 mg PO DAILY [facility] Last Admin: 04/23/17 09:16 Dose: 75 mg Cyclobenzaprine HCl (Flexeril) 10 mg PO BID [facility] Last Admin: 04/23/17 09:16 Dose: 10 mg Diltiazem HCl (Cardizem) 30 mg PO Q8H [facility] Last Admin: 04/23/17 14:27 Dose: 30 mg Diphenhydramine HCl (Benadryl) 50 mg PO Q6 PRN PRN Reason: Extra Pyramidal Symptoms Famotidine (Pepcid) 20 mg PO BID [facility] Last Admin: 04/23/17 09:17 Dose: 20 mg Folic Acid (Folic Acid) 1 mg PO DAILY [facility] Last Admin: 04/23/17 09:17 Dose: 1 mg Furosemide (Lasix) 20 mg PO DAILY [facility] Last Admin: 04/23/17 09:15 Dose: 20 mg Gabapentin (Neurontin) 300 mg PO TID [facility] Last Admin: 04/23/17 13:34 Dose: 300 mg Haloperidol (Haldol) 5 mg PO Q8 PRN PRN Reason: Moderate Agitation Haloperidol (Haldol) 5 mg PO BID [facility] Last Admin: 04/23/17 09:20 Dose: 5 mg Haloperidol Lactate (Haldol) 5 mg IM Q8 PRN PRN Reason: Moderate Agitation Hydroxyzine HCl (Atarax) 50 mg PO Q6H PRN PRN Reason: Anxiety Last Admin: 04/23/17 08:10 Dose: 50 mg Insulin Human Regular (Novolin R) 0 unit [facility] PRN Reason: Protocol Last Admin: 04/23/17 12:46 Dose: 1 unit Lisinopril (Zestril) 20 mg PO DAILY [facility] Last Admin: 04/23/17 09:18 Dose: 20 mg Loperamide HCl (Imodium) 2 mg PO Q8 PRN PRN Reason: Diarrhea Last Admin: 04/21/17 20:51 Dose: 2 mg Lorazepam (Ativan) 1 mg PO Q6 PRN PRN Reason: Symptoms of alcohol withdrawl Last Admin: 04/23/17 12:44 Dose: 1 mg Metformin HCl (Glucophage) 1,000 mg PO BID [facility] Last Admin: 04/23/17 09:18 Dose: 1,000 mg Methadone HCl (Methadone) 5 mg PO DAILY [facility] PRN Reason: Taper Stop: 04/24/17 09:59 Last Admin: 04/23/17 09:22 Dose: 5 mg Metoprolol Succinate (Toprol Xl) 25 mg PO DAILY [facility] Last Admin: 04/22/17 09:31 Dose: 25 mg Mirtazapine (Remeron) 15 mg PO [facility] Last Admin: 04/22/17 23:01 Dose: 15 mg Multivitamins (Hexavitamin) 1 tab PO DAILY [facility] Last Admin: 04/23/17 09:15 Dose: 1 tab Ondansetron HCl (Zofran Tab) 4 mg PO Q8H PRN PRN Reason: Nausea/Vomiting Last Admin: 04/22/17 06:31 Dose: 4 mg Quetiapine Fumarate (Seroquel) 50 mg PO [facility] Last Admin: 04/22/17 23:01 Dose: 50 mg Rosuvastatin Calcium (Crestor) 10 mg PO HS [facility] Last Admin: 04/22/17 21:46 Dose: 10 mg Thiamine HCl (Vitamin B1 Tab) 100 mg PO DAILY [facility] Last Admin: 04/23/17 09:17 Dose: 100 mg Physical Exam - Constitutional Appears: Well, Non-toxic, No Acute Distress - Extremities Exam Additional comments: Vasc: DP/PT 2/4. Temperature gradient warm to cool. CFT < 3 sec to all digits. + 2 non-pitting edema noted to anterior legs extending distally to digits, with pitting edema noted to dorsum of foot B/L. Derm: Diffuse plantar xerosis B/L with mild fissuring noted to plantar aspect of digits. Interdigital maceration noted to left 4th interspace. Fluid-filled doughy mass noted to lateral aspect of midfoot B/L. No erythema, no open wounds , no clinical signs of infection Neuro: Protective sensation grossly diminished Ortho: Tenderness upon palpation of mass at lateral midfoot B/L. Tenderness upon palpation of anterior legs B/L. - Neurological Exam Neurological exam: Alert, Oriented x3 - Psychiatric Exam Psychiatric exam: Normal Affect, Normal Mood Results - Vital Signs Recent Vital Signs: Last Vital Signs Temp 97.5 F L 04/23/17 16:00 Pulse 70 04/23/17 16:00 Resp 20 04/23/17 16:00 BP 138/68 04/23/17 16:00 Pulse Ox 96 04/23/17 16:00 - Labs Result Diagrams: 04/23/17 08:11 04/23/17 08:11 Labs: Laboratory Results - last 24 hr 04/22/17 04/23/17 04/23/17 20:11 01:33 01:33 WBC 5.9 RBC 3.79 L Hgb 10.3 L Hct 33.3 L MCV 87.8 MCH 27.3 MCHC 31.1 L RDW 16.0 H Plt Count 174 MPV 9.4 Neut % (Auto) Lymph % (Auto) [place] % (Auto) Eos % (Auto) Baso % (Auto) Neut # Lymph # [place] # Eos # Baso # ESR Sodium 135 Potassium 4.4 Chloride 99 Carbon Dioxide 27 Anion Gap 13 BUN 21 H Creatinine 1.2 Est GFR ( Amer) > 60 Est GFR (Non-Af Amer) > 60 POC Glucose (mg/dL) 261 H Random Glucose 259 H Hemoglobin A1c Uric Acid Calcium 8.9 Phosphorus 4.4 Magnesium 1.9 Total Bilirubin AST ALT Alkaline Phosphatase Total Creatine Kinase 89 CK-MB (Mass) 1.84 Troponin I, Quant 0.0320 C-React Prot High Sens Total Protein Albumin Globulin Albumin/Globulin Ratio Triglycerides Cholesterol LDL Cholesterol Direct HDL Cholesterol 04/23/17 04/23/17 04/23/17 06:25 08:11 08:11 WBC 5.7 RBC 3.77 L Hgb 10.3 L Hct 32.8 L MCV 87.0 MCH 27.4 MCHC 31.4 L RDW 15.6 H Plt Count 169 MPV 9.2 Neut % (Auto) 49.6 L Lymph % (Auto) 34.7 [place] % (Auto) 11.2 H Eos % (Auto) 4.3 H Baso % (Auto) 0.2 Neut # 2.8 Lymph # 2.0 [place] # 0.6 Eos # 0.2 Baso # 0.0 ESR 26 H Sodium 135 Potassium 4.1 Chloride 100 Carbon Dioxide 26 Anion Gap 13 BUN 18 Creatinine 1.2 Est GFR ( Amer) > 60 Est GFR (Non-Af Amer) > 60 POC Glucose (mg/dL) 253 H Random Glucose 206 H Hemoglobin A1c Uric Acid 7.4 Calcium 8.8 Phosphorus 4.0 Magnesium 1.9 Total Bilirubin 0.2 AST 29 ALT 32 Alkaline Phosphatase 83 Total Creatine Kinase CK-MB (Mass) Troponin I, Quant C-React Prot High Sens Total Protein 6.6 Albumin 3.2 L Globulin 3.4 Albumin/Globulin Ratio 0.9 L Triglycerides 52 Cholesterol 114 LDL Cholesterol Direct 62 HDL Cholesterol 38 04/23/17 04/23/17 04/23/17 08:11 08:11 08:11 WBC RBC Hgb Hct MCV MCH MCHC RDW Plt Count MPV Neut % (Auto) Lymph % (Auto) [place] % (Auto) Eos % (Auto) Baso % (Auto) Neut # Lymph # [place] # Eos # Baso # ESR Sodium Potassium Chloride Carbon Dioxide Anion Gap BUN Creatinine Est GFR ( Amer) Est GFR (Non-Af Amer) POC Glucose (mg/dL) Random Glucose Hemoglobin A1c 7.2 H Uric Acid Calcium Phosphorus Magnesium Total Bilirubin AST ALT Alkaline Phosphatase Total Creatine Kinase 92 CK-MB (Mass) 1.78 Troponin I, Quant 0.0320 C-React Prot High Sens 9.86 H Total Protein Albumin Globulin Albumin/Globulin Ratio Triglycerides Cholesterol LDL Cholesterol Direct HDL Cholesterol 04/23/17 04/23/17 04/23/17 12:14 14:51 17:05 WBC RBC Hgb Hct MCV MCH MCHC RDW Plt Count MPV Neut % (Auto) Lymph % (Auto) [place] % (Auto) Eos % (Auto) Baso % (Auto) Neut # Lymph # [place] # Eos # Baso # ESR Sodium Potassium Chloride Carbon Dioxide Anion Gap BUN Creatinine Est GFR ( Amer) Est GFR (Non-Af Amer) POC Glucose (mg/dL) 189 H 128 H Random Glucose Hemoglobin A1c Uric Acid Calcium Phosphorus Magnesium Total Bilirubin AST ALT Alkaline Phosphatase Total Creatine Kinase 80 CK-MB (Mass) 1.24 Troponin I, Quant 0.0260 C-React Prot High Sens Total Protein Albumin Globulin Albumin/Globulin Ratio Triglycerides Cholesterol LDL Cholesterol Direct HDL Cholesterol Assessment & Plan - Assessment and Plan (Free Text) Assessment: 51 y/o male seen by podiatry for dry scaling cracked feet and pain and swelling in bilateral lower legs and feet. Plan: Pt seen and evaluated at bedside Discussed plan in detail with attending Dr. Torres Labs and vitals reviewed- afebrile, WBC 5.7 Ordered Amlactin cream to be applied topically to plantar feet Ordered Clotrimazole to be applied to digital interspaces Will monitor soft tissue masses on B/L lateral midfoot, will likely tracy and drain tomorrow at bedside Thank you for this consult Podiatry to continue to follow while in house
[2017-04-23] MEDS ORDERED: MethylPREDNISolone 40 mg Vial IVP ONE (19:15)
[2017-04-24 07:45] LABS: BASO % 0.2 % (0.0-2.0); HEMOGLOBIN 11.2 g/dL (12.0-18.0); LYMPH # 0.7 K/uL (1.0-4.3); LYMPH % 10.2 % (20.0-40.0); MEAN CELL VOLUME 86.5 fL (80.0-94.0); MEAN CORPUSCULAR HEMOGLOBIN 27.3 pg (27.0-31.0); MEAN CORPUSCULAR HGB CONC 31.5 g/dL (33.0-37.0); MEAN PLATELET VOLUME 9.6 fL (7.2-11.7); MONO # 0.1 K/uL (0.0-0.8); MONO % 1.9 % (0.0-10.0); NEUT # 5.8 K/uL (1.8-7.0); NEUT % 87.7 % (50.0-75.0); NRBC % 0.1 % (0.0-2.0); RBC 4.12 Mil/uL (4.40-5.90); RED CELL DISTRIBUTION WIDTH 15.7 % (11.5-14.5); WHITE BLOOD COUNT 6.6 K/uL (4.8-10.8)
[2017-04-24 07:54] LABS: ALBUMIN 3.7 g/dL (3.5-5.0)
[2017-04-24 07:57] LABS: ALT/SGPT 29 U/L (21-72); AST/SGOT 32 U/L (17-59); BLOOD UREA NITROGEN 22 mg/dL (9-20); CALCIUM 9.6 mg/dl (8.6-10.4); GFR AFRICAN-AMERICAN > 60; GFR NON-AFRICAN AMERICAN > 60
[2017-04-24] MEDS: (Novolin R) Insulin Human Regular 100 units/ml vial SC SCH ×4 (07:58→22:10)
[2017-04-24] MEDS ORDERED: Lidocaine 1% Inj (20ml) INJ ONE (10:04)
--- NOTE | 2017-04-24 10:04 | CP.PCM.PN ---
<Rishabh Rios - Last Filed: 04/24/17 19:04> Subjective - Date & Time of Evaluation Date of Evaluation: 04/24/17 Time of Evaluation: 10:15 - Subjective Subjective: Patient was seen and examined at bedside. Patient was not in acute distress. Patient wants better pain control for the pain in his feet. Patient denies chest pain, abdominal pain, shortness of breath, palpitations, headache, bleeding. Objective - Vital Signs/Intake and Output Vital Signs (last 24 hours): Temp Pulse Resp BP Pulse Ox 97.4 F L 91 H 20 163/78 H 96 04/24/17 06:30 04/24/17 06:30 04/24/17 06:30 04/24/17 06:30 04/24/17 06:30 Intake and Output: 04/24/17 04/24/17 06:59 18:59 Intake Total 240 Balance 240 - Medications Medications: Current Medications Acetaminophen (Tylenol 325mg Tab) 650 mg PO Q6 PRN PRN Reason: Fever >100.4 F Last Admin: 04/22/17 13:18 Dose: 650 mg Acetaminophen (Tylenol 325mg Tab) 650 mg PO Q6 PRN PRN Reason: Pain, moderate (4-7) Last Admin: 04/23/17 12:44 Dose: 650 mg Aspirin (Ecotrin) 81 mg PO DAILY [facility] Last Admin: 04/23/17 09:19 Dose: 81 mg Benztropine Mesylate (Cogentin) 1 mg PO BID [facility] Last Admin: 04/23/17 18:21 Dose: 1 mg Citalopram Hydrobromide (Celexa) 20 mg PO DAILY [facility] Last Admin: 04/23/17 09:17 Dose: 20 mg Clonidine HCl (Catapres) 0.1 mg PO Q6H PRN PRN Reason: Symptoms of alcohol withdrawal Last Admin: 04/22/17 13:18 Dose: 0.1 mg Clopidogrel Bisulfate (Plavix) 75 mg PO DAILY [facility] Last Admin: 04/23/17 09:16 Dose: 75 mg Clotrimazole (Lotrimin 1%) 1 gm TOP BID [facility] Cyclobenzaprine HCl (Flexeril) 10 mg PO BID [facility] Last Admin: 04/23/17 18:21 Dose: 10 mg Diltiazem HCl (Cardizem) 30 mg PO Q8H [facility] Last Admin: 04/24/17 06:35 Dose: 30 mg Diphenhydramine HCl (Benadryl) 50 mg PO Q6 PRN PRN Reason: Extra Pyramidal Symptoms Famotidine (Pepcid) 20 mg PO BID [facility] Last Admin: 04/23/17 18:00 Dose: 20 mg Folic Acid (Folic Acid) 1 mg PO DAILY [facility] Last Admin: 04/23/17 09:17 Dose: 1 mg Furosemide (Lasix) 20 mg PO DAILY [facility] Last Admin: 04/23/17 09:15 Dose: 20 mg Gabapentin (Neurontin) 300 mg PO TID [facility] Last Admin: 04/23/17 18:20 Dose: 300 mg Haloperidol (Haldol) 5 mg PO Q8 PRN PRN Reason: Moderate Agitation Haloperidol (Haldol) 5 mg PO BID [facility] Last Admin: 04/23/17 18:21 Dose: 5 mg Haloperidol Lactate (Haldol) 5 mg IM Q8 PRN PRN Reason: Moderate Agitation Hydralazine HCl (Apresoline) 10 mg IVP Q6H PRN PRN Reason: Systolic Blood Pressure Hydroxyzine HCl (Atarax) 50 mg PO Q6H PRN PRN Reason: Anxiety Last Admin: 04/24/17 06:42 Dose: 50 mg Insulin Human Regular (Novolin R) 0 unit [facility] PRN Reason: Protocol Last Admin: 04/24/17 07:58 Dose: 4 unit Lactic Acid (Lac-Hydrin 12% Lotion (225 G)) 20 gm EXT DAILY [facility] Lisinopril (Zestril) 20 mg PO DAILY [facility] Last Admin: 04/23/17 09:18 Dose: 20 mg Loperamide HCl (Imodium) 2 mg PO Q8 PRN PRN Reason: Diarrhea Last Admin: 04/21/17 20:51 Dose: 2 mg Lorazepam (Ativan) 1 mg PO Q6 PRN PRN Reason: Symptoms of alcohol withdrawl Last Admin: 04/24/17 06:42 Dose: 1 mg Metformin HCl (Glucophage) 1,000 mg PO BID [facility] Last Admin: 04/23/17 18:21 Dose: 1,000 mg Mirtazapine (Remeron) 15 mg PO HS [facility] Last Admin: 04/23/17 22:30 Dose: 15 mg Multivitamins (Hexavitamin) 1 tab PO DAILY [facility] Last Admin: 04/23/17 09:15 Dose: 1 tab Ondansetron HCl (Zofran Tab) 4 mg PO Q8H PRN PRN Reason: Nausea/Vomiting Last Admin: 04/22/17 06:31 Dose: 4 mg Quetiapine Fumarate (Seroquel) 50 mg PO HS [facility] Last Admin: 04/23/17 22:30 Dose: 50 mg Rosuvastatin Calcium (Crestor) 10 mg PO HS [facility] Last Admin: 04/23/17 22:30 Dose: 10 mg Thiamine HCl (Vitamin B1 Tab) 100 mg PO DAILY [facility] Last Admin: 04/23/17 09:17 Dose: 100 mg - Labs Labs: 04/24/17 07:17 04/24/17 07:14 - Constitutional Appears: Well, Non-toxic, No Acute Distress - Head Exam Head Exam: ATRAUMATIC, NORMAL INSPECTION, NORMOCEPHALIC - Eye Exam Eye Exam: EOMI, Normal appearance, PERRL - ENT Exam ENT Exam: Mucous Membranes Moist, Normal Exam - Neck Exam Neck Exam: Full ROM, Normal Inspection. absent: Lymphadenopathy - Respiratory Exam Respiratory Exam: Clear to Ausculation Bilateral, NORMAL BREATHING PATTERN - Cardiovascular Exam Cardiovascular Exam: REGULAR RHYTHM, +S1, +S2. absent: Murmur - GI/Abdominal Exam GI & Abdominal Exam: Soft, Normal Bowel Sounds. absent: Tenderness - Rectal Exam Rectal Exam: Deferred - Extremities Exam Extremities Exam: Joint Swelling, Normal Capillary Refill. absent: Pedal Edema - Neurological Exam Neurological Exam: Alert, Awake, Oriented x3 - Psychiatric Exam Psychiatric exam: Suicidal Ideation - Skin Skin Exam: Erythema Assessment and Plan - Assessment and Plan (Free Text) Assessment: (1) Lower extremity edema Assessment and Plan: * podiatry consulted, Dr. Torres, help appreciated 04/24: s/p draining procedure with podiatry -> "using a 19gauge needle, incised the abscess, expressed sanguinous fluid, no purulence, no serous fluid" CT scan of bilateral lower extremities to r/o soft tissue mass, f/u * Foot Xray (04/23/17): diffuse of pedal edema on right greater than left with more localized edema subcutanous swelling along the lateral margins of both feet at the level of base of metatarsals right greater than left. Patient unable to have MRI given patient has metal in the neck. * LE edema and tenderness for 6 months * Echo check EF: pending * Venous dopplers r/o DVT Pending * Amlactin cream to be applied topically to plantar feet Clotrimazole to be applied to digital interspaces Status: Acute (2) Diabetes Assessment and Plan: * Uncontrolled * HgA1c: 7.2 Lipid panel: 52 Cholestrol: 114, LDL: 62, HDL: 38 * insulin sliding scale subq * Accuchecks q ACHS * Metformin 1000 mg PO BID * Neurontin 300 mg po TID * Lisinopril 20mg PO daily * urine microalbumin Status: Chronic (3) Hypertension Assessment and Plan: * Lasix 20 mg PO Daily * Lisinopril 20 mg PO daily * Cardizem 30mg PO Q 8hours Status: Chronic (4) Hx of myocardial infarction Assessment and Plan: 04/24: Per cardiology, con't current management ECHO, f/u * Aspirin 81 mg po daily * clopidogrel 75 mg po daily (due to stent) * Crestor 10 mg po HS * lisinopril 20 mg po daily * Cardizem 30mg PO Q 8hours Status: Acute (5) Joint pain Assessment and Plan: * ESR: 26, CRP: 9.86, JAMES, Rheumatoid Factor, and Uric Acid: 7.4 * Flexeril 10mg PO bid Status: Acute (6) Depression Assessment and Plan: * continue with psych for management * Haldol 5mg PO Q8 PRN moderate agitation * Haldol 5mg PO bid * Haldol 5mg IM Q 8 PRN moderate agitation * Atarax 50mg PO Q 6hour PRN anxiety * Seroquel 50mg POqHS * Remeron 15mg POqHS * Benadryl 50mg PO Q 6 PRN * Cogentin 1mg PO bid Status: Acute (7) Opioid disorder Assessment and Plan: * Atarax 50mg PO Q 6hour PRN anxiety * Methadone 5mg PO scheduled per psych Status: Acute (8) Alcohol disorder Assessment and Plan: * Ativan 1mg PO Q 6hour PRN alcohol withdrawal * MVI 1 gayle PO daily * Thiamine 100mg PO daily * Clonidine 0.1mg PO Q 6hour PRN alcohol Status: Acute (9) Prophylactic measure Assessment and Plan: * Pepcid 20 mg PO BID * Tylenol 650mg POQ 6PN > T: 100.4F * Tylenol 650mg PO Q 6PRN moderate pain * Flexeril 10mg PO bid Status: Acute <Larissa Ortiz V - Last Filed: 04/25/17 18:05> Objective - Vital Signs/Intake and Output Vital Signs (last 24 hours): Temp Pulse Resp BP Pulse Ox 98.9 F 80 20 157/80 H 98 04/25/17 15:52 04/25/17 15:52 04/25/17 15:52 04/25/17 15:52 04/25/17 15:52 - Medications Medications: Current Medications Acetaminophen (Tylenol 325mg Tab) 650 mg PO Q6 PRN PRN Reason: Fever >100.4 F Last Admin: 04/24/17 21:12 Dose: 650 mg Acetaminophen (Tylenol 325mg Tab) 650 mg PO Q6 PRN PRN Reason: Pain, moderate (4-7) Last Admin: 04/23/17 12:44 Dose: 650 mg Aspirin (Ecotrin) 81 mg PO DAILY [facility] Last Admin: 04/25/17 10:51 Dose: 81 mg Benztropine Mesylate (Cogentin) 1 mg PO BID [facility] Last Admin: 04/25/17 17:59 Dose: 1 mg Citalopram Hydrobromide (Celexa) 20 mg PO DAILY [facility] Last Admin: 04/25/17 10:54 Dose: 20 mg Clonidine HCl (Catapres) 0.1 mg PO Q6H PRN PRN Reason: Symptoms of alcohol withdrawal Last Admin: 04/22/17 13:18 Dose: 0.1 mg Clopidogrel Bisulfate (Plavix) 75 mg PO DAILY [facility] Last Admin: 04/25/17 10:52 Dose: 75 mg Clotrimazole (Lotrimin 1%) 1 gm TOP BID [facility] Last Admin: 04/25/17 10:54 Dose: 1 applic Cyclobenzaprine HCl (Flexeril) 10 mg PO BID [facility] Last Admin: 04/25/17 17:57 Dose: 10 mg Diltiazem HCl (Cardizem) 30 mg PO Q8H [facility] Last Admin: 04/25/17 15:07 Dose: 30 mg Diphenhydramine HCl (Benadryl) 50 mg PO Q6 PRN PRN Reason: Extra Pyramidal Symptoms Famotidine (Pepcid) 20 mg PO BID [facility] Last Admin: 04/25/17 17:58 Dose: 20 mg Folic Acid (Folic Acid) 1 mg PO DAILY [facility] Last Admin: 04/25/17 10:54 Dose: 1 mg Furosemide (Lasix) 20 mg PO DAILY [facility] Last Admin: 04/25/17 10:51 Dose: 20 mg Gabapentin (Neurontin) 300 mg PO TID [facility] Last Admin: 04/25/17 17:58 Dose: 300 mg Haloperidol (Haldol) 5 mg PO Q8 PRN PRN Reason: Moderate Agitation Haloperidol (Haldol) 5 mg PO BID [facility] Last Admin: 04/25/17 17:58 Dose: 5 mg Haloperidol Lactate (Haldol) 5 mg IM Q8 PRN PRN Reason: Moderate Agitation Hydralazine HCl (Apresoline) 10 mg IVP Q6H PRN PRN Reason: Systolic Blood Pressure Hydroxyzine HCl (Atarax) 50 mg PO Q6H PRN PRN Reason: Anxiety Last Admin: 04/25/17 18:00 Dose: 50 mg Insulin Human Regular (Novolin R) 0 unit [facility] PRN Reason: Protocol Last Admin: 04/25/17 17:57 Dose: 1 unit Lactic Acid (Lac-Hydrin 12% Lotion (225 G)) 20 gm EXT DAILY [facility] Last Admin: 04/25/17 10:51 Dose: 1 applic Lisinopril (Zestril) 20 mg PO BID [facility] Last Admin: 04/25/17 17:58 Dose: 20 mg Loperamide HCl (Imodium) 2 mg PO Q8 PRN PRN Reason: Diarrhea Last Admin: 04/21/17 20:51 Dose: 2 mg Metformin HCl (Glucophage) 1,000 mg PO BID [facility] Last Admin: 04/24/17 18:35 Dose: 1,000 mg Mirtazapine (Remeron) 15 mg PO [facility] Last Admin: 04/24/17 22:05 Dose: 15 mg Multivitamins (Hexavitamin) 1 tab PO DAILY [facility] Last Admin: 04/25/17 11:02 Dose: 1 tab Ondansetron HCl (Zofran Tab) 4 mg PO Q8H PRN PRN Reason: Nausea/Vomiting Last Admin: 04/22/17 06:31 Dose: 4 mg Quetiapine Fumarate (Seroquel) 50 mg PO HS [facility] Last Admin: 04/24/17 22:05 Dose: 50 mg Rosuvastatin Calcium (Crestor) 10 mg PO HS [facility] Last Admin: 04/24/17 22:04 Dose: 10 mg Thiamine HCl (Vitamin B1 Tab) 100 mg PO DAILY [facility] Last Admin: 04/25/17 10:49 Dose: 100 mg - Labs Labs: 04/25/17 07:12 04/25/17 07:12 Attending/Attestation - Attestation I have personally seen and examined this patient.: Yes I have fully participated in the care of the patient.: Yes I have reviewed all pertinent clinical information, including history, physical exam and plan: Yes Notes (Text): This is late compute entry 04/24/17. Patient seen, examined and case discussed with day-time agronomy internship. Patient completed bedside local drainage by podiatry prior to my arrival. Patient is persistently asking for Methadone as his pain prn for his feet pain. Given additional dose of Methadone 5mg PO X1 post procedure; discussed with psychiatry. Patient completed venous dopplers today. Patient seen by cardiology today-->appreciate recommendations. At the end of shift, patient continues to ask for additional methadone for his pain medications. Advised to not give further methadone per recommended by psychiatry.
[2017-04-24] MEDS: Ammonium Lactate 12% Lotion (225 g) EXT SCH (10:15)
[2017-04-24] MEDS: Multiple Vitamins Tab PO SCH (10:22)
[2017-04-24] MEDS: Clotrimazole 1% Cream(30 gm) TOP SCH ×2 (10:31→18:39)
--- NOTE | 2017-04-24 10:48 | CP.PCM.PN ---
Subjective - Date & Time of Evaluation Date of Evaluation: 04/24/17 Time of Evaluation: 10:45 - Subjective Subjective: 51 y/o male seen at bedside by podiatry for pain and swelling in both feet. Patient appears in NAD and AAOx3. Patient denies any acute events overnight. patient states that he has moderate pain in both of his feet today. Patient denies any F/C/N/V/SOB. Objective - Vital Signs/Intake and Output Vital Signs (last 24 hours): Temp Pulse Resp BP Pulse Ox 97.4 F L 91 H 20 140/67 96 04/24/17 06:30 04/24/17 06:30 04/24/17 06:30 04/24/17 10:14 04/24/17 06:30 Intake and Output: 04/24/17 04/24/17 06:59 18:59 Intake Total 240 Balance 240 - Medications Medications: Current Medications Acetaminophen (Tylenol 325mg Tab) 650 mg PO Q6 PRN PRN Reason: Fever >100.4 F Last Admin: 04/22/17 13:18 Dose: 650 mg Acetaminophen (Tylenol 325mg Tab) 650 mg PO Q6 PRN PRN Reason: Pain, moderate (4-7) Last Admin: 04/23/17 12:44 Dose: 650 mg Aspirin (Ecotrin) 81 mg PO DAILY [facility] Last Admin: 04/24/17 10:14 Dose: 81 mg Benztropine Mesylate (Cogentin) 1 mg PO BID [facility] Last Admin: 04/23/17 18:21 Dose: 1 mg Citalopram Hydrobromide (Celexa) 20 mg PO DAILY [facility] Last Admin: 04/23/17 09:17 Dose: 20 mg Clonidine HCl (Catapres) 0.1 mg PO Q6H PRN PRN Reason: Symptoms of alcohol withdrawal Last Admin: 04/22/17 13:18 Dose: 0.1 mg Clopidogrel Bisulfate (Plavix) 75 mg PO DAILY [facility] Last Admin: 04/24/17 10:14 Dose: 75 mg Clotrimazole (Lotrimin 1%) 1 gm TOP BID [facility] Cyclobenzaprine HCl (Flexeril) 10 mg PO BID [facility] Last Admin: 04/24/17 10:14 Dose: 10 mg Diltiazem HCl (Cardizem) 30 mg PO Q8H [facility] Last Admin: 04/24/17 06:35 Dose: 30 mg Diphenhydramine HCl (Benadryl) 50 mg PO Q6 PRN PRN Reason: Extra Pyramidal Symptoms Famotidine (Pepcid) 20 mg PO BID [facility] Last Admin: 04/24/17 10:14 Dose: 20 mg Folic Acid (Folic Acid) 1 mg PO DAILY [facility] Last Admin: 04/24/17 10:14 Dose: 1 mg Furosemide (Lasix) 20 mg PO DAILY [facility] Last Admin: 04/24/17 10:14 Dose: 20 mg Gabapentin (Neurontin) 300 mg PO TID [facility] Last Admin: 04/24/17 10:14 Dose: 300 mg Haloperidol (Haldol) 5 mg PO Q8 PRN PRN Reason: Moderate Agitation Haloperidol (Haldol) 5 mg PO BID [facility] Last Admin: 04/23/17 18:21 Dose: 5 mg Haloperidol Lactate (Haldol) 5 mg IM Q8 PRN PRN Reason: Moderate Agitation Hydralazine HCl (Apresoline) 10 mg IVP Q6H PRN PRN Reason: Systolic Blood Pressure Hydroxyzine HCl (Atarax) 50 mg PO Q6H PRN PRN Reason: Anxiety Last Admin: 04/24/17 06:42 Dose: 50 mg Insulin Human Regular (Novolin R) 0 unit SC [facility] PRN Reason: Protocol Last Admin: 04/24/17 07:58 Dose: 4 unit Lactic Acid (Lac-Hydrin 12% Lotion (225 G)) 20 gm EXT DAILY [facility] Last Admin: 04/24/17 10:15 Dose: 1 applic Lisinopril (Zestril) 20 mg PO DAILY [facility] Last Admin: 04/24/17 10:14 Dose: 20 mg Loperamide HCl (Imodium) 2 mg PO Q8 PRN PRN Reason: Diarrhea Last Admin: 04/21/17 20:51 Dose: 2 mg Lorazepam (Ativan) 1 mg PO Q6 PRN PRN Reason: Symptoms of alcohol withdrawl Last Admin: 04/24/17 06:42 Dose: 1 mg Metformin HCl (Glucophage) 1,000 mg PO BID [facility] Last Admin: 04/24/17 10:14 Dose: 1,000 mg Mirtazapine (Remeron) 15 mg PO [facility] Last Admin: 04/23/17 22:30 Dose: 15 mg Multivitamins (Hexavitamin) 1 tab PO DAILY [facility] Last Admin: 04/24/17 10:22 Dose: 1 tab Ondansetron HCl (Zofran Tab) 4 mg PO Q8H PRN PRN Reason: Nausea/Vomiting Last Admin: 04/22/17 06:31 Dose: 4 mg Quetiapine Fumarate (Seroquel) 50 mg PO HS [facility] Last Admin: 04/23/17 22:30 Dose: 50 mg Rosuvastatin Calcium (Crestor) 10 mg PO HS [facility] Last Admin: 04/23/17 22:30 Dose: 10 mg Thiamine HCl (Vitamin B1 Tab) 100 mg PO DAILY [facility] Last Admin: 04/24/17 10:22 Dose: 100 mg - Labs Labs: 04/24/17 07:17 04/24/17 07:14 - Constitutional Appears: Well, Non-toxic, No Acute Distress - Extremities Exam Additional comments: Vasc: DP/PT 2/4. Temperature gradient warm to cool. CFT < 3 sec to all digits. + 2 non-pitting edema noted to anterior legs extending distally to digits, with pitting edema noted to dorsum of foot B/L. Derm: Diffuse plantar xerosis B/L with mild fissuring noted to plantar aspect of digits. Interdigital maceration noted to left 4th interspace. Fluid-filled soft tissue mass noted to lateral aspect of midfoot B/L. No erythema, no open wounds, no clinical signs of infection Neuro: Protective sensation grossly diminished Ortho: Tenderness upon palpation of mass at lateral midfoot B/L. Tenderness upon palpation of anterior legs B/L. - Neurological Exam Neurological Exam: Alert, Awake, Oriented x3 - Psychiatric Exam Psychiatric exam: Normal Affect, Normal Mood Assessment and Plan - Assessment and Plan (Free Text) Assessment: 51 y/o male seen by podiatry bilateral foot pain and plantar xerosis b/l Plan: Pt seen and evaluated at bedside Discussed plan in detail with attending Dr. Torres Labs and vitals reviewed- afebrile, WBC 6.6 Rx Amlactin cream to be applied topically to plantar feet Rx Clotrimazole to be applied to digital interspaces consent and timeout for incision and drainage of bilateral feet obtained 3mL of 1% lidocaine plain injected into each lateral foot at the site of the abscess using a 19gauge needle, incised the abscess, expressed sanguinous fluid, no purulence, no serous fluid f/u CT scan of bilateral lower extremities to r/o soft tissue mass Podiatry to continue to follow while in house
--- NOTE | 2017-04-24 13:17 | CP.PCM.CON ---
History of Present Illness - History of Present Illness History of Present Illness: BILATERAL SWELLING OF LEGS FOR ABOUT 6 MONTHS. DENIES CHEST PAIN. NO SOB. Review of Systems - Review of Systems Systems not reviewed;Unavailable: Psychotic - Constitutional Constitutional: Malaise. absent: Fever - EENT Eyes: absent: As Per HPI, Blind Spots, Blurred Vision, Change in Vision, Decreased Night Vision, Diplopia, Discharge, Dry Eye, Exophthalmos, Floaters, Irritation, Itchy Eyes, Loss of Peripheral Vision, Pain, Photophobia, Requires Corrective Lenses, Sees Flashes, Spots in Vision, Tunnel Vision, Other Visual Disturbances, Loss of Vision, Other Ears: absent: As Per HPI, Decreased Hearing, Ear Discharge, Ear Pain, Tinnitus, Abnormal Hearing, Disequilibrium, Dizziness, Other Nose/Mouth/Throat: absent: As Per HPI, Epistaxis, Nasal Congestion, Nasal Discharge, Nasal Obstruction, Nasal Trauma, Nose Pain, Post Nasal Drip, Sinus Pain, Sinus Pressure, Bleeding Gums, Change in Voice, Dental Pain, Dry Mouth, Dysphagia, Halitosis, Hoarsness, Lip Swelling, Mouth Lesions, Mouth Pain, Odynophagia, Sore Throat, Throat Swelling, Tongue Swelling, Facial Pain, Neck Pain, Neck Mass, Other - Cardiovascular Cardiovascular: Dyspnea on Exertion, Edema, Leg Edema, Leg Ulcers. absent: Chest Pain - Respiratory Respiratory: absent: As Per HPI, Cough, Dyspnea, Hemoptysis, Dyspnea on Exertion , Wheezing, Snoring, Stridor, Pain on Inspiration, Chest Congestion, Excessive Mucous Production, Change in Mucous Color, Pain with Coughing, Other - Gastrointestinal Gastrointestinal: absent: As Per HPI, Abdominal Pain, Belching, Bloating, Change in Bowel Habits, Change in Stool Character, Coffee Ground Emesis, Constipation, Cramping, Diarrhea, Dyspepsia, Dysphagia, Early Satiety, Excessive Flatus, Fecal Incontinence, Heartburn, Hematemesis, Hematochezia, Loose Stools, Melena, Nausea, Odynophagia, Temesmus, Vomiting, Other - Musculoskeletal Musculoskeletal: absent: As Per HPI, Abnormal Gait, Arthralgias, Atrophy, Back Pain, Deformity, Joint Swelling, Limited Range of Motion, Loss of Height, Muscle Cramps, Muscle Weakness, Myalgias, Neck Pain, Numbness, Radiating Pain into Limb, Stiffness, Tingling, Other - Integumentary Integumentary: absent: As Per HPI, Acne, Alopecia, Bleeding Lesions, Change in Hair, Change in Nails, Change in Pigmentation, Changing Lesions, Dry Skin, Erythema, Furuncle, Hirsutism, Lesions, New Lesions, Non-Healing Lesions, Photosensitivity, Pruritus, Rash, Skin Pain, Skin Ulcer, Sores, Striae, Swelling , Unusual Bruising, Wounds, Jaundice, Other - Neurological Neurological: absent: As Per HPI, Abnormal Gait, Abnormal Hearing, Abnormal Movements, Abnormal Speech, Behavioral Changes, Burning Sensations, Confusion, Convulsions, Disequilibrium, Dizziness, Numbness, Focal Weakness, Frequent Falls , Headaches, Lack of Coordination, Loss of Vision, Memory Loss, Paresthesias, Radicular Pain, Restless Legs, Sensory Deficit, Syncope, Tingling, Tremor, Vertigo, Weakness, Other Visual Disturbances, Other - Psychiatric Psychiatric: Behavioral Changes, Depression, Irritability - Endocrine Endocrine: absent: As Per HPI, Change in Body Appearance, Change in Libido, Cold Intolorance, Deepening of Voice, Excessive Sweating, Fatigue, Flushing, Heat Intolorance, Increase in Ring/Shoe/Hat Size, Palpitations, Polydipsia, Polyphagia, Polyuria, Other - Hematologic/Lymphatic Hematologic: absent: As Per HPI, Easy Bleeding, Easy Bruising, Lymphadenopathy, Other Past Patient History - Infectious Disease Hx of Infectious Diseases: None - Past Social History Smoking Status: Light Smoker < 10 Cigarettes Daily Chewing Tobacco Use: No Alcohol: > 2 Drinks/Day Drugs: Cocaine - CARDIAC Hx Cardiac Disorders: Yes (CAD WITH STENT) Hx Atrial Fibrillation: No Hx Cardia Arrhythmia: No Hx Congestive Heart Failure: Yes Hx Heart Attack: Yes Hx Hypertension: Yes Hx Pacemaker: No - PULMONARY Hx Respiratory Disorders: No - NEUROLOGICAL Hx Neurological Disorder: No - HEENT Hx HEENT Problems: No - RENAL Hx Chronic Kidney Disease: No - ENDOCRINE/METABOLIC Hx Endocrine Disorders: No - HEMATOLOGICAL/ONCOLOGICAL Hx Hepatitis C: Yes - INTEGUMENTARY Hx Dermatological Problems: No - MUSCULOSKELETAL/RHEUMATOLOGICAL Hx Musculoskeletal Disorders: No Hx Falls: Yes - GASTROINTESTINAL Hx Gastrointestinal Disorders: No - GENITOURINARY/GYNECOLOGICAL Hx Genitourinary Disorders: No - PSYCHIATRIC Hx Substance Use: Yes - SURGICAL HISTORY Hx Coronary Artery Bypass Graft: Yes Hx Coronary Stent: Yes Other/Comment: cervical fusion C 4-C5 - ANESTHESIA Hx Anesthesia: Yes Hx Anesthesia Reactions: No Meds Allergies/Adverse Reactions: Allergies Allergy/AdvReac Type Severity Reaction Status Date / Time chlorpromazine Allergy Severe THROAT Verified 04/23/17 01:42 [From Thorazine] SWEELS ibuprofen [From Motrin] Allergy Severe INTERNAL Verified 04/23/17 01:42 BLEEDING nitroglycerin Allergy Severe INTERNAL Verified 04/23/17 01:42 BLEEDING penicillin G Allergy Mild PALPITATION Verified 04/23/17 01:42 acetaminophen [From Tylenol] Allergy CRAMPS Verified 04/23/17 01:42 divalproex sodium Allergy SEIZURE Verified 04/23/17 01:42 [From Depakote] ketorolac [From Toradol] AdvReac INTERNAL Verified 04/23/17 01:42 BLEEDING - Medications Medications: Current Medications Acetaminophen (Tylenol 325mg Tab) 650 mg PO Q6 PRN PRN Reason: Fever >100.4 F Last Admin: 04/22/17 13:18 Dose: 650 mg Acetaminophen (Tylenol 325mg Tab) 650 mg PO Q6 PRN PRN Reason: Pain, moderate (4-7) Last Admin: 04/23/17 12:44 Dose: 650 mg Aspirin (Ecotrin) 81 mg PO DAILY [facility] Last Admin: 04/24/17 10:14 Dose: 81 mg Benztropine Mesylate (Cogentin) 1 mg PO BID [facility] Last Admin: 04/24/17 10:35 Dose: 1 mg Citalopram Hydrobromide (Celexa) 20 mg PO DAILY [facility] Last Admin: 04/24/17 10:35 Dose: 20 mg Clonidine HCl (Catapres) 0.1 mg PO Q6H PRN PRN Reason: Symptoms of alcohol withdrawal Last Admin: 04/22/17 13:18 Dose: 0.1 mg Clopidogrel Bisulfate (Plavix) 75 mg PO DAILY [facility] Last Admin: 04/24/17 10:14 Dose: 75 mg Clotrimazole (Lotrimin 1%) 1 gm TOP BID [facility] Last Admin: 04/24/17 10:31 Dose: 1 applic Cyclobenzaprine HCl (Flexeril) 10 mg PO BID [facility] Last Admin: 04/24/17 10:14 Dose: 10 mg Diltiazem HCl (Cardizem) 30 mg PO Q8H [facility] Last Admin: 04/24/17 06:35 Dose: 30 mg Diphenhydramine HCl (Benadryl) 50 mg PO Q6 PRN PRN Reason: Extra Pyramidal Symptoms Famotidine (Pepcid) 20 mg PO BID [facility] Last Admin: 04/24/17 10:14 Dose: 20 mg Folic Acid (Folic Acid) 1 mg PO DAILY [facility] Last Admin: 04/24/17 10:14 Dose: 1 mg Furosemide (Lasix) 20 mg PO DAILY [facility] Last Admin: 04/24/17 10:14 Dose: 20 mg Gabapentin (Neurontin) 300 mg PO TID [facility] Last Admin: 04/24/17 13:01 Dose: 300 mg Haloperidol (Haldol) 5 mg PO Q8 PRN PRN Reason: Moderate Agitation Haloperidol (Haldol) 5 mg PO BID [facility] Last Admin: 04/24/17 10:35 Dose: 5 mg Haloperidol Lactate (Haldol) 5 mg IM Q8 PRN PRN Reason: Moderate Agitation Hydralazine HCl (Apresoline) 10 mg IVP Q6H PRN PRN Reason: Systolic Blood Pressure Hydroxyzine HCl (Atarax) 50 mg PO Q6H PRN PRN Reason: Anxiety Last Admin: 04/24/17 06:42 Dose: 50 mg Insulin Human Regular (Novolin R) 0 unit SC [facility] PRN Reason: Protocol Last Admin: 04/24/17 12:59 Dose: 2 unit Lactic Acid (Lac-Hydrin 12% Lotion (225 G)) 20 gm EXT DAILY [facility] Last Admin: 04/24/17 10:15 Dose: 1 applic Lisinopril (Zestril) 20 mg PO DAILY [facility] Last Admin: 04/24/17 10:14 Dose: 20 mg Loperamide HCl (Imodium) 2 mg PO Q8 PRN PRN Reason: Diarrhea Last Admin: 04/21/17 20:51 Dose: 2 mg Lorazepam (Ativan) 1 mg PO Q6 PRN PRN Reason: Symptoms of alcohol withdrawl Last Admin: 04/24/17 06:42 Dose: 1 mg Metformin HCl (Glucophage) 1,000 mg PO BID [facility] Last Admin: 04/24/17 10:14 Dose: 1,000 mg Mirtazapine (Remeron) 15 mg PO HS [facility] Last Admin: 04/23/17 22:30 Dose: 15 mg Multivitamins (Hexavitamin) 1 tab PO DAILY [facility] Last Admin: 04/24/17 10:22 Dose: 1 tab Ondansetron HCl (Zofran Tab) 4 mg PO Q8H PRN PRN Reason: Nausea/Vomiting Last Admin: 04/22/17 06:31 Dose: 4 mg Quetiapine Fumarate (Seroquel) 50 mg PO HS [facility] Last Admin: 04/23/17 22:30 Dose: 50 mg Rosuvastatin Calcium (Crestor) 10 mg PO HS [facility] Last Admin: 04/23/17 22:30 Dose: 10 mg Thiamine HCl (Vitamin B1 Tab) 100 mg PO DAILY [facility] Last Admin: 04/24/17 10:22 Dose: 100 mg Physical Exam - Constitutional Appears: Non-toxic, No Acute Distress, Chronically Ill - Eye Exam Eye Exam: Normal appearance, PERRL - ENT Exam ENT Exam: Normal Exam - Neck Exam Neck exam: Negative for: Lymphadenopathy - Respiratory Exam Respiratory Exam: Clear to Auscultation Bilateral, NORMAL BREATHING PATTERN - Cardiovascular Exam Cardiovascular Exam: REGULAR RHYTHM, +S1, +S2 - GI/Abdominal Exam GI & Abdominal Exam: Normal Bowel Sounds, Soft - Exam External exam: Swelling Results - Vital Signs Recent Vital Signs: Last Vital Signs Temp 97.4 F L 04/24/17 06:30 Pulse 91 H 04/24/17 06:30 Resp 20 04/24/17 06:30 BP 140/67 04/24/17 10:14 Pulse Ox 96 04/24/17 06:30 - Labs Result Diagrams: 04/24/17 07:17 04/24/17 07:14 Labs: Laboratory Results - last 24 hr 04/23/17 04/23/17 04/23/17 08:11 14:51 17:05 WBC RBC Hgb Hct MCV MCH MCHC RDW Plt Count MPV Neut % (Auto) Lymph % (Auto) Schley % (Auto) Eos % (Auto) Baso % (Auto) Neut # Lymph # Schley # Eos # Baso # Sodium Potassium Chloride Carbon Dioxide Anion Gap BUN Creatinine Est GFR ( Amer) Est GFR (Non-Af Amer) POC Glucose (mg/dL) 128 H Random Glucose Calcium Total Bilirubin AST ALT Alkaline Phosphatase Total Creatine Kinase 80 CK-MB (Mass) 1.24 Troponin I, Quant 0.0260 Total Protein Albumin Globulin Albumin/Globulin Ratio Rheum Arthritis Panel Negative JAMES 6 Profile Negative 04/23/17 04/24/17 04/24/17 21:56 06:29 07:14 WBC RBC Hgb Hct MCV MCH MCHC RDW Plt Count MPV Neut % (Auto) Lymph % (Auto) Schley % (Auto) Eos % (Auto) Baso % (Auto) Neut # Lymph # Schley # Eos # Baso # Sodium 136 Potassium 4.7 Chloride 101 Carbon Dioxide 24 Anion Gap 15 BUN 22 H Creatinine 1.1 Est GFR ( Amer) > 60 Est GFR (Non-Af Amer) > 60 POC Glucose (mg/dL) 274 H 323 H Random Glucose 321 H Calcium 9.6 Total Bilirubin 0.4 AST 32 ALT 29 Alkaline Phosphatase 79 Total Creatine Kinase CK-MB (Mass) Troponin I, Quant Total Protein 7.5 Albumin 3.7 Globulin 3.8 Albumin/Globulin Ratio 1.0 Rheum Arthritis Panel JAMES 6 Profile 04/24/17 04/24/17 07:17 12:00 WBC 6.6 RBC 4.12 L Hgb 11.2 L Hct 35.6 MCV 86.5 MCH 27.3 MCHC 31.5 L RDW 15.7 H Plt Count 202 MPV 9.6 Neut % (Auto) 87.7 H Lymph % (Auto) 10.2 L Schley % (Auto) 1.9 Eos % (Auto) 0.0 Baso % (Auto) 0.2 Neut # 5.8 Lymph # 0.7 L Schley # 0.1 Eos # 0.0 Baso # 0.0 Sodium Potassium Chloride Carbon Dioxide Anion Gap BUN Creatinine Est GFR ( Amer) Est GFR (Non-Af Amer) POC Glucose (mg/dL) 218 H Random Glucose Calcium Total Bilirubin AST ALT Alkaline Phosphatase Total Creatine Kinase CK-MB (Mass) Troponin I, Quant Total Protein Albumin Globulin Albumin/Globulin Ratio Rheum Arthritis Panel JAMES 6 Profile Assessment & Plan - Assessment and Plan (Free Text) Assessment: CAD. STENT. SWELLING OF LEGS. Plan: CT PRESENT MANAGEMENT. ECHO. TREAT CELLULITIS OF LEGS.
[2017-04-24] MEDS ORDERED: Iodixanol 320 MG/ML 100 ML BOTTLE IV ONE (17:48)
--- NOTE | 2017-04-24 21:12 | CT ---
EXAM: CT Left Lower Extremity With Intravenous Contrast, Foot CLINICAL HISTORY: 51 years old, male; Signs and symptoms; Swelling, leg or foot; Additional info: R/O soft tisse mass on both feet TECHNIQUE: Axial computed tomography images of the left foot with intravenous contrast. This CT exam was performed using one or more of the following dose reduction techniques: automated exposure control, adjustment of the mA and/or kV according to patient size, and/or use of iterative reconstruction technique. Coronal and sagittal reformatted images were created and reviewed. CONTRAST: 100 mL of visipaque 320 administered intravenously. COMPARISON: No relevant prior studies available. FINDINGS: Bones/joints: A well-corticated bony density projecting inferior it to and adjacent to the medial malleolus suggests an accessory ossicle or old avulsion injury mild degenerative changes are noted of the intertarsal joints. Small plantar calcaneal spur is present. A traction osteophyte is noted of the dorsal calcaneus at Achilles tendon insertion site. No acute fracture. No dislocation. Soft tissues: There is diffuse soft tissue edema of the ankle and foot Soft tissue swelling is noted within the subcutaneous fat of the mid foot on the plantar side IMPRESSION: Diffuse soft tissue swelling with focal edema noted on the plantar side of the mid foot adjacent to the plantar fascia. This could represent plantar fasciitis or focal rupture of the plantar fascia.. MRI might be helpful EXAM: CT Right Lower Extremity With Intravenous Contrast, Foot CLINICAL HISTORY: 51 years old, male; Signs and symptoms; Swelling, leg or foot; Additional info: R/O soft tisse mass on both feet TECHNIQUE: Axial computed tomography images of the right foot with intravenous contrast. This CT exam was performed using one or more of the following dose reduction techniques: automated exposure control, adjustment of the mA and/or kV according to patient size, and/or use of iterative reconstruction technique. Coronal and sagittal reformatted images were created and reviewed. CONTRAST: 100 mL of visipaque 320 administered intravenously. EXAM DATE/TIME: Exam ordered 04/24/2017 1:28 PM COMPARISON: No relevant prior studies available. FINDINGS: Bones/joints: A small traction osteophyte is noted of the dorsal calcaneus at the Achilles tendon insertion site. No acute fracture. No dislocation. Soft tissues: There is diffuse soft tissue edema of the ankle and foot Soft tissue swelling is noted within the subcutaneous fat of the mid foot on the plantar side IMPRESSION: Diffuse soft tissue swelling with focal edema noted on the plantar side of the mid foot adjacent to the plantar fascia. This could represent plantar fasciitis or focal rupture of the plantar fascia.. MRI might be helpful Images were attached to this report and are available at [email or web address]
--- NOTE | 2017-04-24 22:50 | CARD ---
APPROVED REPORT EXAM: Two-dimensional and M-mode echocardiogram with Doppler and color Doppler. Other Information Quality : GoodRhythm : NSR INDICATION Acute MS Substance Abuser Surgery/Intervention CABG: Date: 2009 RISK FACTORS Hypertension Obesity Diabetes M-Mode DIMENSIONS RVDd1.72 (2.1-3.2cm)Left Atrium (MM)5.23 (2.5-4.0cm) IVSd1.31 (0.7-1.1cm)Aortic Root2.89 (2.2-3.7cm) LVDd4.94 (4.0-5.6cm)Aortic Cusp Exc.1.17 (1.5-2.0cm) PWd1.31 (0.7-1.1cm)FS (%) 39 % LVDs3.01 (2.0-3.8cm)LVEF (%)69 (>50%) Mitral Valve MV E Uasfhswe95.5cm/sMV A Mdrbuwlw51.9cm/sE/A ratio1.1 TDI E/Lateral E'0.0E/Medial E'0.0 Tricuspid Valve TR Peak [id number] Peak [id number] LEFT VENTRICLE There is mild concentric left ventricular hypertrophy. Left ventricle systolic function is normal with Ejection Fraction of 65-70%. There is normal LV segmental wall motion. The left ventricular diastolic function is normal. No left ventricle thrombus noted on this study. RIGHT VENTRICLE The right ventricle is normal size. The right ventricular systolic function is normal. ATRIA The left atrium is moderately dilated. The right atrium size is normal. AORTIC VALVE The aortic valve is mildly thickened. The aortic valve is probably trileaflet. No aortic regurgitation is present. There is no aortic valvular stenosis on 2D. There is no aortic valvular vegetation. MITRAL VALVE The mitral valve is normal in structure. There is no evidence of mitral valve prolapse. There is no mitral valve stenosis. Mitral regurgitation is mild. TRICUSPID VALVE The tricuspid valve is normal in structure. There is mild tricuspid regurgitation. Right ventricular systolic pressure is estimated at less than 30 mmHg. There is no pulmonary hypertension. There is no tricuspid valve prolapse or vegetation. There is no tricuspid valve stenosis. PULMONIC VALVE The pulmonic valve is not well visualized. There is no pulmonic valvular regurgitation. GREAT VESSELS The aortic root is normal in size. The IVC is normal in size and collapses >50% with inspiration. PERICARDIAL EFFUSION There is no pericardial effusion. There is no pleural effusion. <Conclusion> There is mild concentric left ventricular hypertrophy. Left ventricle systolic function is normal with Ejection Fraction of 65-70%. There is normal LV segmental wall motion. The left ventricular diastolic function is normal. The right ventricle is normal size. The right ventricular systolic function is normal. The left atrium is moderately dilated. The right atrium size is normal. Mitral regurgitation is mild. There is mild tricuspid regurgitation.
[2017-04-25 07:18] LABS: BASO % 0.2 % (0.0-2.0); EOS % 0.5 % (0.0-4.0); HEMOGLOBIN 10.4 g/dL (12.0-18.0); LYMPH # 2.3 K/uL (1.0-4.3); LYMPH % 27.2 % (20.0-40.0); MEAN CELL VOLUME 86.5 fL (80.0-94.0); MEAN CORPUSCULAR HEMOGLOBIN 26.9 pg (27.0-31.0); MEAN CORPUSCULAR HGB CONC 31.1 g/dL (33.0-37.0); MEAN PLATELET VOLUME 9.3 fL (7.2-11.7); MONO # 0.9 K/uL (0.0-0.8); MONO % 10.6 % (0.0-10.0); NEUT # 5.3 K/uL (1.8-7.0); NEUT % 61.5 % (50.0-75.0); RBC 3.86 Mil/uL (4.40-5.90); RED CELL DISTRIBUTION WIDTH 15.7 % (11.5-14.5); WHITE BLOOD COUNT 8.6 K/uL (4.8-10.8)
[2017-04-25 08:00] LABS: ALBUMIN 3.5 g/dL (3.5-5.0)
[2017-04-25 08:03] LABS: AST/SGOT 24 U/L (17-59); GFR AFRICAN-AMERICAN > 60; GFR NON-AFRICAN AMERICAN > 60
[2017-04-25 08:04] LABS: ALT/SGPT 24 U/L (21-72); BLOOD UREA NITROGEN 23 mg/dL (9-20)
[2017-04-25] MEDS: (Novolin R) Insulin Human Regular 100 units/ml vial SC SCH ×3 (08:19→17:57)
[2017-04-25] MEDS: Multiple Vitamins Tab PO SCH ×2 (10:48→11:02)
[2017-04-25] MEDS: Ammonium Lactate 12% Lotion (225 g) EXT SCH (10:51)
[2017-04-25] MEDS: Clotrimazole 1% Cream(30 gm) TOP SCH ×2 (10:54→18:02)
--- NOTE | 2017-04-25 11:54 | CP.PCM.PN ---
Subjective - Date & Time of Evaluation Date of Evaluation: 04/25/17 Time of Evaluation: 11:51 - Subjective Subjective: 51 y/o male seen at bedside for pain and swelling in both feet. Patient appears in acute distress and states that if he leaves the hospital he will commit suicide. Patient states that he does not feel that he is being treated well and is not getting the help he needs. Patient states that he feels "tired" and does not want to feel anything anymore. Patient states that he does not feel ready to leave the hospital yet. He complains of diffuse pain in both of his feet. He denies any acute events overnight. Patient denies any F/C/N/V/SOB. Objective - Vital Signs/Intake and Output Vital Signs (last 24 hours): Temp Pulse Resp BP Pulse Ox 97.8 F 89 20 149/79 96 04/25/17 07:35 04/25/17 07:35 04/25/17 07:35 04/25/17 10:51 04/25/17 07:35 - Medications Medications: Current Medications Acetaminophen (Tylenol 325mg Tab) 650 mg PO Q6 PRN PRN Reason: Fever >100.4 F Last Admin: 04/24/17 21:12 Dose: 650 mg Acetaminophen (Tylenol 325mg Tab) 650 mg PO Q6 PRN PRN Reason: Pain, moderate (4-7) Last Admin: 04/23/17 12:44 Dose: 650 mg Aspirin (Ecotrin) 81 mg PO DAILY [facility] Last Admin: 04/25/17 10:51 Dose: 81 mg Benztropine Mesylate (Cogentin) 1 mg PO BID [facility] Last Admin: 04/25/17 10:52 Dose: 1 mg Citalopram Hydrobromide (Celexa) 20 mg PO DAILY [facility] Last Admin: 04/25/17 10:54 Dose: 20 mg Clonidine HCl (Catapres) 0.1 mg PO Q6H PRN PRN Reason: Symptoms of alcohol withdrawal Last Admin: 04/22/17 13:18 Dose: 0.1 mg Clopidogrel Bisulfate (Plavix) 75 mg PO DAILY [facility] Last Admin: 04/25/17 10:52 Dose: 75 mg Clotrimazole (Lotrimin 1%) 1 gm TOP BID [facility] Last Admin: 04/25/17 10:54 Dose: 1 applic Cyclobenzaprine HCl (Flexeril) 10 mg PO BID [facility] Last Admin: 04/25/17 10:48 Dose: 10 mg Diltiazem HCl (Cardizem) 30 mg PO Q8H [facility] Last Admin: 04/25/17 06:07 Dose: 30 mg Diphenhydramine HCl (Benadryl) 50 mg PO Q6 PRN PRN Reason: Extra Pyramidal Symptoms Famotidine (Pepcid) 20 mg PO BID [facility] Last Admin: 04/25/17 10:52 Dose: 20 mg Folic Acid (Folic Acid) 1 mg PO DAILY [facility] Last Admin: 04/25/17 10:54 Dose: 1 mg Furosemide (Lasix) 20 mg PO DAILY [facility] Last Admin: 04/25/17 10:51 Dose: 20 mg Gabapentin (Neurontin) 300 mg PO TID [facility] Last Admin: 04/25/17 10:50 Dose: 300 mg Haloperidol (Haldol) 5 mg PO Q8 PRN PRN Reason: Moderate Agitation Haloperidol (Haldol) 5 mg PO BID [facility] Last Admin: 04/25/17 10:53 Dose: 5 mg Haloperidol Lactate (Haldol) 5 mg IM Q8 PRN PRN Reason: Moderate Agitation Hydralazine HCl (Apresoline) 10 mg IVP Q6H PRN PRN Reason: Systolic Blood Pressure Hydroxyzine HCl (Atarax) 50 mg PO Q6H PRN PRN Reason: Anxiety Last Admin: 04/25/17 04:12 Dose: 50 mg Insulin Human Regular (Novolin R) 0 unit SC ACHS [facility] PRN Reason: Protocol Last Admin: 04/25/17 08:19 Dose: 4 unit Lactic Acid (Lac-Hydrin 12% Lotion (225 G)) 20 gm EXT DAILY [facility] Last Admin: 04/25/17 10:51 Dose: 1 applic Lisinopril (Zestril) 20 mg PO BID [facility] Loperamide HCl (Imodium) 2 mg PO Q8 PRN PRN Reason: Diarrhea Last Admin: 04/21/17 20:51 Dose: 2 mg Lorazepam (Ativan) 1 mg PO Q6 PRN PRN Reason: Symptoms of alcohol withdrawl Last Admin: 04/25/17 04:12 Dose: 1 mg Metformin HCl (Glucophage) 1,000 mg PO BID [facility] Last Admin: 04/24/17 18:35 Dose: 1,000 mg Mirtazapine (Remeron) 15 mg PO HS [facility] Last Admin: 04/24/17 22:05 Dose: 15 mg Multivitamins (Hexavitamin) 1 tab PO DAILY [facility] Last Admin: 04/25/17 11:02 Dose: 1 tab Ondansetron HCl (Zofran Tab) 4 mg PO Q8H PRN PRN Reason: Nausea/Vomiting Last Admin: 04/22/17 06:31 Dose: 4 mg Quetiapine Fumarate (Seroquel) 50 mg PO [facility] Last Admin: 04/24/17 22:05 Dose: 50 mg Rosuvastatin Calcium (Crestor) 10 mg PO HS [facility] Last Admin: 04/24/17 22:04 Dose: 10 mg Thiamine HCl (Vitamin B1 Tab) 100 mg PO DAILY [facility] Last Admin: 04/25/17 10:49 Dose: 100 mg - Labs Labs: 04/25/17 07:12 04/25/17 07:12 - Constitutional Appears: Well, Non-toxic, No Acute Distress - Extremities Exam Additional comments: Vasc: DP/PT 2/4. Temperature gradient warm to cool. CFT < 3 sec to all digits. + 2 non-pitting edema noted to anterior legs extending distally to digits, with pitting edema noted to dorsum of foot B/L. Derm: Diffuse plantar xerosis B/L with mild fissuring noted to plantar aspect of digits. Interdigital maceration noted to left 4th interspace. Fluid-filled soft tissue mass noted to lateral aspect of midfoot B/L. No erythema, no open wounds, no clinical signs of infection Neuro: Protective sensation grossly diminished Ortho: Tenderness upon palpation of mass at lateral midfoot B/L. Tenderness upon palpation of anterior legs B/L. - Neurological Exam Neurological Exam: Alert, Awake, Oriented x3 - Psychiatric Exam Psychiatric exam: Normal Affect, Normal Mood Assessment and Plan - Assessment and Plan (Free Text) Assessment: 51 y/o male seen at bedside for bilateral foot pain and plantar xerosis b/l Plan: -Pt seen and evaluated at bedside -Discussed plan in detail with attending Dr. Torres -Labs and vitals reviewed- afebrile, WBC 8.6 -Amlactin cream to be applied topically to plantar feet -Clotrimazole to be applied to digital interspaces -CT scan of bilateral lower extremities show soft tissue edema to plantar lateral foot b/l, -consistent with possible plantar fibromas, plantar fasciitis or rupture of plantar fascia -cannot perform MRI due to metal in neck -psych consult recommended due to suicidal thoughts -discussed with patient need to follow up in clinic as outpatient to evaluate possible surgical intervention for plantar soft tissue masses of bilateral foot -Podiatry to continue to follow while in house
--- NOTE | 2017-04-25 12:22 | PCM.PYCHPN ---
Psychiatric Progress Note - Psychiatric Progress Note Patient seen today, length of contact: 16 min Patient Chief Complaint: I need methadone.' Problems Identified/Issues Discussed: Patient seen and evaluated, chart reviewed and discussed with the nurse. patient remained meds seek on the medical floor. He is asking for more and more methadone and other opiate pain medications. As per the staff, patient is doing much better. He is eating well and walking around and denies any feelings of hopelessness and helplessness. However when the medical team started discussing discharge plan with him, he started making suicidal threats to stay longer in the hospital. he denies any auditory or visual hallucinations. He is compliant with his medications and denies any side effects. Supportive therapy and psychoeducation were given. Medication Change: No Medical Record Reviewed: Yes Mental Status Examination - Cognitive Function Orientation: Person, Place, Situation, Time Memory: Intact Attention: WNL Concentration: WNL Association: WNL Fund of Knowledge: WNL - Mood Mood: Anxious - Affect Affect: Constricted - Speech Speech: Soft - Formal Thought Process Formal Thought Process: No Impairment - Suicidal Ideation Suicidal Ideation: No - Homicidal Ideation Homicidal Ideation: No Goal/Treatment Plan - Goal/Treatment Plan Need for Continued Stay: Failed transitioning Progress Toward Problem(s) and Goals/Treatment Plan: Major depressive disorder recurrent severe with psychotic features CBT Psychoeducation Supportive therapy, group therapy, individual therapy Neurontin 300 mg by mouth 3 times a day Remeron 15 mg by mouth daily at bedtime Seroquel 50 mg by mouth daily at bedtime Haldol 5 mg by mouth twice a day PTSD chronic CBT Psychoeducation Alcohol use disorder severe CBT Psychoeducation Supportive therapy, individual therapy Use OK for abstinence Opioid use disorder severe CBT Psychoeducation Supportive therapy, individual therapy Use OK for abstinence patient psychiatrically stable and clear to be discharged - Smoking Cessation Smoking Cessation Initiated: No
--- NOTE | 2017-04-25 13:16 | CP.PCM.PN ---
Subjective - Date & Time of Evaluation Date of Evaluation: 04/25/17 Time of Evaluation: 13:14 - Subjective Subjective: CONDITION REMAINS SAME. AMBULATING. C/O CHRONIC PAIN. CAD. HTN. ECHO MILD LVH . LVEF 65-70%. Objective - Vital Signs/Intake and Output Vital Signs (last 24 hours): Temp Pulse Resp BP Pulse Ox 97.8 F 89 20 149/79 96 04/25/17 07:35 04/25/17 07:35 04/25/17 07:35 04/25/17 10:51 04/25/17 07:35 - Medications Medications: Current Medications Acetaminophen (Tylenol 325mg Tab) 650 mg PO Q6 PRN PRN Reason: Fever >100.4 F Last Admin: 04/24/17 21:12 Dose: 650 mg Acetaminophen (Tylenol 325mg Tab) 650 mg PO Q6 PRN PRN Reason: Pain, moderate (4-7) Last Admin: 04/23/17 12:44 Dose: 650 mg Aspirin (Ecotrin) 81 mg PO DAILY [facility] Last Admin: 04/25/17 10:51 Dose: 81 mg Benztropine Mesylate (Cogentin) 1 mg PO BID [facility] Last Admin: 04/25/17 10:52 Dose: 1 mg Citalopram Hydrobromide (Celexa) 20 mg PO DAILY [facility] Last Admin: 04/25/17 10:54 Dose: 20 mg Clonidine HCl (Catapres) 0.1 mg PO Q6H PRN PRN Reason: Symptoms of alcohol withdrawal Last Admin: 04/22/17 13:18 Dose: 0.1 mg Clopidogrel Bisulfate (Plavix) 75 mg PO DAILY [facility] Last Admin: 04/25/17 10:52 Dose: 75 mg Clotrimazole (Lotrimin 1%) 1 gm TOP BID [facility] Last Admin: 04/25/17 10:54 Dose: 1 applic Cyclobenzaprine HCl (Flexeril) 10 mg PO BID [facility] Last Admin: 04/25/17 10:48 Dose: 10 mg Diltiazem HCl (Cardizem) 30 mg PO Q8H [facility] Last Admin: 04/25/17 06:07 Dose: 30 mg Diphenhydramine HCl (Benadryl) 50 mg PO Q6 PRN PRN Reason: Extra Pyramidal Symptoms Famotidine (Pepcid) 20 mg PO BID [facility] Last Admin: 04/25/17 10:52 Dose: 20 mg Folic Acid (Folic Acid) 1 mg PO DAILY [facility] Last Admin: 04/25/17 10:54 Dose: 1 mg Furosemide (Lasix) 20 mg PO DAILY [facility] Last Admin: 04/25/17 10:51 Dose: 20 mg Gabapentin (Neurontin) 300 mg PO TID [facility] Last Admin: 04/25/17 10:50 Dose: 300 mg Haloperidol (Haldol) 5 mg PO Q8 PRN PRN Reason: Moderate Agitation Haloperidol (Haldol) 5 mg PO BID [facility] Last Admin: 04/25/17 10:53 Dose: 5 mg Haloperidol Lactate (Haldol) 5 mg IM Q8 PRN PRN Reason: Moderate Agitation Hydralazine HCl (Apresoline) 10 mg IVP Q6H PRN PRN Reason: Systolic Blood Pressure Hydroxyzine HCl (Atarax) 50 mg PO Q6H PRN PRN Reason: Anxiety Last Admin: 04/25/17 11:59 Dose: 50 mg Insulin Human Regular (Novolin R) 0 unit SC [facility] PRN Reason: Protocol Last Admin: 04/25/17 12:52 Dose: Not Given Lactic Acid (Lac-Hydrin 12% Lotion (225 G)) 20 gm EXT DAILY [facility] Last Admin: 04/25/17 10:51 Dose: 1 applic Lisinopril (Zestril) 20 mg PO BID [facility] Loperamide HCl (Imodium) 2 mg PO Q8 PRN PRN Reason: Diarrhea Last Admin: 04/21/17 20:51 Dose: 2 mg Metformin HCl (Glucophage) 1,000 mg PO BID [facility] Last Admin: 04/24/17 18:35 Dose: 1,000 mg Mirtazapine (Remeron) 15 mg PO [facility] Last Admin: 04/24/17 22:05 Dose: 15 mg Multivitamins (Hexavitamin) 1 tab PO DAILY [facility] Last Admin: 04/25/17 11:02 Dose: 1 tab Ondansetron HCl (Zofran Tab) 4 mg PO Q8H PRN PRN Reason: Nausea/Vomiting Last Admin: 04/22/17 06:31 Dose: 4 mg Quetiapine Fumarate (Seroquel) 50 mg PO [facility] Last Admin: 04/24/17 22:05 Dose: 50 mg Rosuvastatin Calcium (Crestor) 10 mg PO HS [facility] Last Admin: 04/24/17 22:04 Dose: 10 mg Thiamine HCl (Vitamin B1 Tab) 100 mg PO DAILY [facility] Last Admin: 04/25/17 10:49 Dose: 100 mg - Labs Labs: 04/25/17 07:12 04/25/17 07:12 - Constitutional Appears: No Acute Distress, Chronically Ill - Eye Exam Eye Exam: Normal appearance, PERRL - ENT Exam ENT Exam: Mucous Membranes Moist - Neck Exam Neck Exam: absent: Lymphadenopathy - Respiratory Exam Respiratory Exam: Clear to Ausculation Bilateral, NORMAL BREATHING PATTERN - Cardiovascular Exam Cardiovascular Exam: REGULAR RHYTHM, +S1, +S2 - GI/Abdominal Exam GI & Abdominal Exam: Soft, Normal Bowel Sounds - Extremities Exam Extremities Exam: Pedal Edema Assessment and Plan - Assessment and Plan (Free Text) Assessment: CAD STABLE. HTN. LVH. Plan: CT PRESENT TREATMENT.
--- NOTE | 2017-04-25 13:25 | VASCLAB ---
PROCEDURE: Lower Extremity Venous Duplex Exam. HISTORY: bilateral pedal edema PRIORS: None. TECHNIQUE: Bilateral common femoral, femoral, popliteal and posterior tibial, peroneal and great saphenous veins were evaluated. Flow was assessed with color Doppler, compressibility, assessment of phasic flow and augmentation response. Report prepared by Chino Hummel, JSEE, RVT FINDINGS: RIGHT: 1. Common Femoral Vein: 1.1. Compressibility - Fully compressible: Thrombus - None : Flow - Phasic: Augmentation -Normal: Reflux - None. 2. Femoral Vein: 2.1. Compressibility - Fully compressible: Thrombus - None : Flow - Phasic: Augmentation -Normal: Reflux - None. 3. Popliteal Vein: 3.1. Compressibility - Fully compressible: Thrombus - None : Flow - Phasic: Augmentation -Normal: Reflux - None. 4. Posterior Tibial Vein: 4.1. Compressibility - Fully compressible: Thrombus - None: Flow - Phasic: Augmentation -Normal: Reflux - None. 5. Peroneal Vein: 5.1. Compressibility - Fully compressible: Thrombus - None: Flow - Phasic: Augmentation -Normal: Reflux - None. 6. Great Saphenous Vein: 6.1. Compressibility - Fully compressible: Thrombus - None: Flow - Phasic: Augmentation - Normal: Reflux - None. LEFT: 1. Common Femoral Vein: 1.1. Compressibility - Fully compressible: Thrombus - None: Flow - Phasic: Augmentation -Normal: Reflux - None. 2. Femoral Vein: 2.1. Compressibility - Fully compressible: Thrombus - None: Flow - Phasic: Augmentation -Normal: Reflux - None. 3. Popliteal Vein: 3.1. Compressibility - Fully compressible: Thrombus - None : Flow - Phasic: Augmentation -Normal: Reflux - None. 4. Posterior Tibial Vein: 4.1. Compressibility - Fully compressible: Thrombus - None: Flow - Phasic: Augmentation -Normal: Reflux - None. 5. Peroneal Vein: 5.1. Compressibility - Fully compressible: Thrombus - None: Flow - Phasic: Augmentation -Normal: Reflux - None. 6. Great Saphenous Vein: 6.1. Compressibility - Fully compressible: Thrombus - None: Flow - Phasic: Augmentation - Normal: Reflux - None. OTHER FINDINGS: Right: None significant. Left: None significant. IMPRESSION: Right: No evidence of deep or superficial vein thrombosis of the right lower extremity. Normal valve function noted of the right side. Left: No evidence of deep or superficial vein thrombosis of the left lower extremity. Normal valve function noted of the left side.
[2017-04-25 15:53] VITALS: BP 157/80; PULSE 80; TEMP 98.9; O2SAT 98
--- NOTE | 2017-04-25 16:33 | RAD ---
HISTORY: wheezing COMPARISON: No prior. FINDINGS: LUNGS: No consolidation. PLEURA: No significant pleural effusion identified, no pneumothorax apparent. CARDIOVASCULAR: Mild cardiomegaly. Possible minimal symmetrical pulmonary venous congestion versus some summation effects due to large body habitus. OSSEOUS STRUCTURES: Sternal cerclage wire discontinuity 6 from the top noted. Moderate to severe thoracic spondylosis VISUALIZED UPPER ABDOMEN: Normal. OTHER FINDINGS: None. IMPRESSION: No consolidation or atelectasis. No pneumothorax.. Possible minimal symmetrical pulmonary venous congestion (versus summation effects due to large body habitus. Other findings as above
--- NOTE | 2017-04-25 17:28 | PCM.PYCHPN ---
Psychiatric Progress Note - Psychiatric Progress Note Patient seen today, length of contact: 16 min Patient Chief Complaint: I am feeling better.' Problems Identified/Issues Discussed: Patient seen and evaluated, chart reviewed and discussed with the nurse. The patient reports improvement in his mood and withdrawal s/s, but he remained isolated and continued to pace back and forth in the hallways. The pt is compliant with medications and reports no side-effects. Symptoms are improving but needs more time to stabilize. After care discussed, support and psychoeducation given. Medication Change: No Medical Record Reviewed: Yes Mental Status Examination - Cognitive Function Orientation: Person, Place, Situation, Time Memory: Intact Attention: WNL Concentration: WNL Association: WNL Fund of Knowledge: WNL - Mood Mood: Anxious - Affect Affect: Constricted - Speech Speech: Soft - Formal Thought Process Formal Thought Process: No Impairment - Suicidal Ideation Suicidal Ideation: No - Homicidal Ideation Homicidal Ideation: No Goal/Treatment Plan - Goal/Treatment Plan Need for Continued Stay: Failed transitioning Progress Toward Problem(s) and Goals/Treatment Plan: Major depressive disorder recurrent severe with psychotic features CBT Psychoeducation Supportive therapy, group therapy, individual therapy Neurontin 300 mg by mouth 3 times a day Remeron 15 mg by mouth daily at bedtime Seroquel 50 mg by mouth daily at bedtime Haldol 5 mg by mouth twice a day PTSD chronic CBT Psychoeducation Alcohol use disorder severe CBT Psychoeducation Supportive therapy, individual therapy Use SD for abstinence Opioid use disorder severe CBT Psychoeducation Supportive therapy, individual therapy Use SD for abstinence patient psychiatrically stable and clear to be discharged
--- NOTE | 2017-04-25 22:39 | CP.PCM.DIS ---
<Rishabh Rios - Last Filed: 04/25/17 22:34> Provider - Provider Date of Admission: 04/20/17 05:17 Attending physician: Prasanth Dodson MD Primary care physician: n/a Consults: Dr Oneyda Estrada - Cardiology Dr Lisa Torres - Podiatry Time Spent in preparation of Discharge (in minutes): 45 Hospital Course - Lab Results Lab Results: Most Recent Lab Values WBC 8.6 K/uL (4.8-10.8) 04/25/17 07:12 RBC 3.86 Mil/uL (4.40-5.90) L 04/25/17 07:12 Hgb 10.4 g/dL (12.0-18.0) L 04/25/17 07:12 Hct 33.4 % (35.0-51.0) L 04/25/17 07:12 MCV 86.5 fL (80.0-94.0) 04/25/17 07:12 MCH 26.9 pg (27.0-31.0) L 04/25/17 07:12 MCHC 31.1 g/dL (33.0-37.0) L 04/25/17 07:12 RDW 15.7 % (11.5-14.5) H 04/25/17 07:12 Plt Count 186 K/uL (130-400) 04/25/17 07:12 MPV 9.3 fL (7.2-11.7) 04/25/17 07:12 Neut % (Auto) 61.5 % (50.0-75.0) 04/25/17 07:12 Lymph % (Auto) 27.2 % (20.0-40.0) 04/25/17 07:12 [place] % (Auto) 10.6 % (0.0-10.0) H 04/25/17 07:12 Eos % (Auto) 0.5 % (0.0-4.0) 04/25/17 07:12 Baso % (Auto) 0.2 % (0.0-2.0) 04/25/17 07:12 Neut # 5.3 K/uL (1.8-7.0) 04/25/17 07:12 Lymph # 2.3 K/uL (1.0-4.3) 04/25/17 07:12 Charles [place] # 0.9 K/uL (0.0-0.8) H 04/25/17 07:12 Eos # 0.0 K/uL (0.0-0.7) 04/25/17 07:12 Baso # 0.0 K/uL (0.0-0.2) 04/25/17 07:12 ESR 26 mm/hr (0-15) H 04/23/17 08:11 Sodium 134 mmol/L (132-148) 04/25/17 07:12 Potassium 3.9 mmol/L (3.6-5.2) 04/25/17 07:12 Chloride 97 mmol/L (98-107) L 04/25/17 07:12 Carbon Dioxide 24 mmol/L (22-30) 04/25/17 07:12 Anion Gap 16 (10-20) 04/25/17 07:12 BUN 23 mg/dL (9-20) H 04/25/17 07:12 Creatinine 1.1 MG/DL (0.8-1.5) 04/25/17 07:12 Est GFR ( Amer) > 60 04/25/17 07:12 Est GFR (Non-Af Amer) > 60 04/25/17 07:12 POC Glucose (mg/dL) 163 mg/dL (65-110) H 04/25/17 16:20 Random Glucose 275 mg/dL (75-110) H 04/25/17 07:12 Hemoglobin A1c 7.2 % (4.2-6.5) H 04/23/17 08:11 Uric Acid 7.4 mg/dL (3.5-8.5) 04/23/17 08:11 Calcium 9.0 mg/dl (8.6-10.4) 04/25/17 07:12 Phosphorus 3.8 mg/dL (2.5-4.5) 04/25/17 07:12 Magnesium 2.0 mg/dL (1.6-2.3) 04/25/17 07:12 Total Bilirubin 0.4 mg/dL (0.2-1.3) 04/25/17 07:12 AST 24 U/L (17-59) 04/25/17 07:12 ALT 24 U/L (21-72) 04/25/17 07:12 Alkaline Phosphatase 73 U/L (38-126) 04/25/17 07:12 Total Creatine Kinase 80 U/L (55-170) 04/23/17 14:51 CK-MB (Mass) 1.24 ng/mL (0.0-3.38) 04/23/17 14:51 Troponin I, Quant 0.0260 ng/mL (0.00-0.120) 04/23/17 14:51 C-React Prot High Sens 9.86 mg/L (1.00-3.00) H 04/23/17 08:11 Total Protein 6.9 g/dL (6.3-8.3) 04/25/17 07:12 Albumin 3.5 g/dL (3.5-5.0) 04/25/17 07:12 Globulin 3.4 gm/dL (2.2-3.9) 04/25/17 07:12 Albumin/Globulin Ratio 1.0 (1.0-2.1) 04/25/17 07:12 Triglycerides 52 mg/dL (0-149) 04/23/17 08:11 Cholesterol 114 mg/dL (0-199) 04/23/17 08:11 LDL Cholesterol Direct 62 mg/dL (0-129) 04/23/17 08:11 HDL Cholesterol 38 mg/dL (30-70) 04/23/17 08:11 Rheum Arthritis Panel Negative (NEGATIVE) 04/23/17 08:11 JAMES 6 Profile Negative (NEGATIVE) 04/23/17 08:11 - Hospital Course Hospital Course: History of Present Illness: Patient is a 51 y/o male with PMH of , who presented to ED with depressed mood and incomplete suicide attempt (tried to OD on heroin, cocaine, and alcohol). Patient consulted by medicine for bilateral lower extremity and pedal edema. Patient says his feet have been hurting him and swollen for the past 6 months. Patient says that although he is homeless he wears shoes. Patient's feet are tender to the touch. Patient says he also has numbness and tingling in both feet for a long time. Patient says he has abdominal pain, nausea, vomiting and diarrhea which he attributes to withdrawing from heroin. Patient denies chest pain and shortness of breath. PMD: none PMH: depression, DM, HTN, HLD, NE in 2012 with stent placement, DVT in 2011, neck surgery with metal plates and screws placed in 2014 PSocial:cocaine, heroin, alcohol (2 pints of vodka per day for 1 and half years) Allergies:Nitroglycerin- anaphylaxis Hospital Course: (1) Lower extremity edema * podiatry consulted, Dr. Torres 04/24: s/p draining procedure with podiatry -> "using a 19gauge needle, incised the abscess, expressed sanguinous fluid, no purulence, no serous fluid" CT scan of bilateral lower extremities to r/o soft tissue mass, f/u * Foot Xray (04/23/17): diffuse of pedal edema on right greater than left with more localized edema subcutanous swelling along the lateral margins of both feet at the level of base of metatarsals right greater than left. Patient unable to have MRI given patient has metal in the neck. * LE edema and tenderness for 6 months * Echo check EF: pending * Venous dopplers r/o DVT Pending * Amlactin cream to be applied topically to plantar feet Clotrimazole to be applied to digital interspaces (2) Diabetes * Uncontrolled * HgA1c: 7.2 Lipid panel: 52 Cholestrol: 114, LDL: 62, HDL: 38 * insulin sliding scale subq * Accuchecks q ACHS * Metformin 1000 mg PO BID * Neurontin 300 mg po TID * Lisinopril 20mg PO daily * urine microalbumin (3) Hypertension * Lasix 20 mg PO Daily * Lisinopril 20 mg PO daily * Cardizem 30mg PO Q 8hours (4) Hx of myocardial infarction 04/24: Per cardiology, con't current management ECHO, f/u * Aspirin 81 mg po daily * clopidogrel 75 mg po daily (due to stent) * Crestor 10 mg po HS * lisinopril 20 mg po daily * Cardizem 30mg PO Q 8hours (5) Joint pain * ESR: 26, CRP: 9.86, JAMES, Rheumatoid Factor, and Uric Acid: 7.4 * Flexeril 10mg PO bid (6) Depression * continue with psych for management * Haldol 5mg PO Q8 PRN moderate agitation * Haldol 5mg PO bid * Haldol 5mg IM Q 8 PRN moderate agitation * Atarax 50mg PO Q 6hour PRN anxiety * Seroquel 50mg POqHS * Remeron 15mg POqHS * Benadryl 50mg PO Q 6 PRN * Cogentin 1mg PO bid (7) Opioid disorder * Atarax 50mg PO Q 6hour PRN anxiety * Methadone 5mg PO scheduled per psych (8) Alcohol disorder * Ativan 1mg PO Q 6hour PRN alcohol withdrawal * MVI 1 gayle PO daily * Thiamine 100mg PO daily * Clonidine 0.1mg PO Q 6hour PRN alcohol (9) Prophylactic measure * Pepcid 20 mg PO BID * Tylenol 650mg POQ 6PN > T: 100.4F * Tylenol 650mg PO Q 6PRN moderate pain * Flexeril 10mg PO bid Discharge Exam - Head Exam Head Exam: ATRAUMATIC, NORMAL INSPECTION, NORMOCEPHALIC - Eye Exam Eye Exam: EOMI, Normal appearance, PERRL Pupil Exam: NORMAL ACCOMODATION, PERRL - ENT Exam ENT Exam: Normal Exam - Neck Exam Neck exam: Full Rom - Respiratory Exam Respiratory Exam: NORMAL BREATHING PATTERN. absent: Rales, Rhonchi, Wheezes - Cardiovascular Exam Cardiovascular Exam: REGULAR RHYTHM, RRR, +S1, +S2 - GI/Abdominal Exam GI & Abdominal Exam: Normal Bowel Sounds. absent: Soft, Tenderness - Rectal Exam Rectal Exam: Deferred - Extremities Exam Extremities exam: pedal edema, tenderness - Neurological Exam Neurological exam: Alert, Oriented x3 - Psychiatric Exam Psychiatric exam: Agitated, Anxious, Depressed - Skin Skin Exam: Dry, Intact, Normal Color Discharge Plan - Discharge Medications Prescriptions: Aspirin [Ecotrin] 81 mg PO DAILY #30 Clotrimazole 1% Cream [Lotrimin 1%] 1 gm TOP BID #1 diltiaZEM [Cardizem] 30 mg PO Q8H 30 Days Furosemide [Lasix] 20 mg PO DAILY 30 Days Gabapentin [Neurontin] 300 mg PO TID #90 cap Lisinopril [Zestril] 40 mg PO DAILY #30 tab metFORMIN [glucOPHAGE] 1,000 mg PO BID #30 tab Mirtazapine [Remeron Soltab] 15 mg PO HS 30 Days QUEtiapine [SEROquel] 100 mg PO HS #30 tab Rosuvastatin Calcium [Crestor] 10 mg PO HS #30 tab - Follow Up Plan Condition: GOOD Disposition: HOME/ ROUTINE Instructions: Diltiazem (By mouth), Lisinopril (By mouth), Furosemide (By mouth ), Betamethasone/Clotrimazole (On the skin), Aspirin (By mouth), Gabapentin (By mouth), Metformin (By mouth), Mirtazapine (By mouth), Quetiapine (By mouth), Rosuvastatin (By mouth), Heart Failure (DC), Heart Healthy Diet (DC), Depression (DC) Additional Instructions: Patient is medically stable for discharge. Patient is psychiatrically cleared for discharge. Patient recommended for follow up in the [facility]: where he'll receive a referral to the cardiology and podiatry. Patient recommended to follow up with hvac tech for monitoring of foot. Patient provided extensive list of shelters, boarding and other social media developer by social service worker. Patient provided voucher upon discharge. Patient to be provided prescriptions for his chronic conditions including diabetes, cad, psychiatry, and hypertension. Referrals: Oneyda Estrada MD [Staff Provider] - Lisa Torres DPM [Staff Provider] - <Larissa Ortiz V - Last Filed: 04/26/17 07:40> Provider - Provider Date of Admission: 04/20/17 05:17 Attending physician: Prasanth Dodson MD Hospital Course - Lab Results Lab Results: Most Recent Lab Values WBC 8.6 K/uL (4.8-10.8) 04/25/17 07:12 RBC 3.86 Mil/uL (4.40-5.90) L 04/25/17 07:12 Hgb 10.4 g/dL (12.0-18.0) L 04/25/17 07:12 Hct 33.4 % (35.0-51.0) L 04/25/17 07:12 MCV 86.5 fL (80.0-94.0) 04/25/17 07:12 MCH 26.9 pg (27.0-31.0) L 04/25/17 07:12 MCHC 31.1 g/dL (33.0-37.0) L 04/25/17 07:12 RDW 15.7 % (11.5-14.5) H 04/25/17 07:12 Plt Count 186 K/uL (130-400) 04/25/17 07:12 MPV 9.3 fL (7.2-11.7) 04/25/17 07:12 Neut % (Auto) 61.5 % (50.0-75.0) 04/25/17 07:12 Lymph % (Auto) 27.2 % (20.0-40.0) 04/25/17 07:12 Charles [place] % (Auto) 10.6 % (0.0-10.0) H 04/25/17 07:12 Eos % (Auto) 0.5 % (0.0-4.0) 04/25/17 07:12 Baso % (Auto) 0.2 % (0.0-2.0) 04/25/17 07:12 Neut # 5.3 K/uL (1.8-7.0) 04/25/17 07:12 Lymph # 2.3 K/uL (1.0-4.3) 04/25/17 07:12 Charles [place] # 0.9 K/uL (0.0-0.8) H 04/25/17 07:12 Eos # 0.0 K/uL (0.0-0.7) 04/25/17 07:12 Baso # 0.0 K/uL (0.0-0.2) 04/25/17 07:12 ESR 26 mm/hr (0-15) H 04/23/17 08:11 Sodium 134 mmol/L (132-148) 04/25/17 07:12 Potassium 3.9 mmol/L (3.6-5.2) 04/25/17 07:12 Chloride 97 mmol/L (98-107) L 04/25/17 07:12 Carbon Dioxide 24 mmol/L (22-30) 04/25/17 07:12 Anion Gap 16 (10-20) 04/25/17 07:12 BUN 23 mg/dL (9-20) H 04/25/17 07:12 Creatinine 1.1 MG/DL (0.8-1.5) 04/25/17 07:12 Est GFR ( Amer) > 60 04/25/17 07:12 Est GFR (Non-Af Amer) > 60 04/25/17 07:12 POC Glucose (mg/dL) 163 mg/dL (65-110) H 04/25/17 16:20 Random Glucose 275 mg/dL (75-110) H 04/25/17 07:12 Hemoglobin A1c 7.2 % (4.2-6.5) H 04/23/17 08:11 Uric Acid 7.4 mg/dL (3.5-8.5) 04/23/17 08:11 Calcium 9.0 mg/dl (8.6-10.4) 04/25/17 07:12 Phosphorus 3.8 mg/dL (2.5-4.5) 04/25/17 07:12 Magnesium 2.0 mg/dL (1.6-2.3) 04/25/17 07:12 Total Bilirubin 0.4 mg/dL (0.2-1.3) 04/25/17 07:12 AST 24 U/L (17-59) 04/25/17 07:12 ALT 24 U/L (21-72) 04/25/17 07:12 Alkaline Phosphatase 73 U/L (38-126) 04/25/17 07:12 Total Creatine Kinase 80 U/L (55-170) 04/23/17 14:51 CK-MB (Mass) 1.24 ng/mL (0.0-3.38) 04/23/17 14:51 Troponin I, Quant 0.0260 ng/mL (0.00-0.120) 04/23/17 14:51 C-React Prot High Sens 9.86 mg/L (1.00-3.00) H 04/23/17 08:11 Total Protein 6.9 g/dL (6.3-8.3) 04/25/17 07:12 Albumin 3.5 g/dL (3.5-5.0) 04/25/17 07:12 Globulin 3.4 gm/dL (2.2-3.9) 04/25/17 07:12 Albumin/Globulin Ratio 1.0 (1.0-2.1) 04/25/17 07:12 Triglycerides 52 mg/dL (0-149) 04/23/17 08:11 Cholesterol 114 mg/dL (0-199) 04/23/17 08:11 LDL Cholesterol Direct 62 mg/dL (0-129) 04/23/17 08:11 HDL Cholesterol 38 mg/dL (30-70) 04/23/17 08:11 Rheum Arthritis Panel Negative (NEGATIVE) 04/23/17 08:11 JAMES 6 Profile Negative (NEGATIVE) 04/23/17 08:11 Attending/Attestation - Attestation I have personally seen and examined this patient.: Yes I have fully participated in the care of the patient.: Yes I have reviewed all pertinent clinical information, including history, physical exam and plan: Yes Notes (Text): This is a late computer entry for 04/25/17. Patient seen, examined and case discussed with day-time winter intern. Patient is requesting Methadone for his pain prn. After following my discussions with psych, patient was strongly to advise to stop asking for Methadone as his pain prn given that he has used it as both maintenance and/or taper from his heroin use. Patient has completed methadone taper in the hospital and keeps asking for additional methadone during several points of day with my conversations with both my daytime and nighttime residents. Per discussion with psych, patient is psychiatrically stable for discharge. Patient has made many threatening statements during the day. Discussed with podiatry, patient may followup outpatient regarding abnormal CT scan; unlikely its a rupture given patient is able to invert and suzanne his foot. Patient given upon discharge medications for his CAD, Diabetes, Hypertension, and hyperlipidemia. Patient advised to establish care at the [facility] and referral to cardiology as outpatient. Also I discussed with the social service worker who has provided extensive resources to the patient regarding group home, boarding houses etc given the patient is homeless. Patient reports a girl name Tova has been helping him in the psych unit per discussion with the social service worker that is a night time staff person not a social service worker.
--- NOTE | 2017-04-29 12:59 | CARD ---
APPROVED REPORT EKG Measurement Heart [id number] <Conclusion> Normal sinus rhythm Nonspecific ST and T wave abnormality Abnormal ECG
--- NOTE | 2017-04-29 12:59 | CARD ---
APPROVED REPORT EKG Measurement Heart [id number] <Conclusion> Normal sinus rhythm Nonspecific T wave abnormality Abnormal ECG
== END 2017-04-25 18:45 | disposition home or self-care (01) | DRG 885 ==
LOC: C.ER 05:04 → C.5E 05:17 → C.6T 04-22 22:15 → C.5E 04-22 22:21 → C.6T 04-22 23:38
PROVIDERS: ADMIT Psychiatry & Neurology Psychiatry; ATTEND Family Medicine
PROC: GZ3ZZZZ Medication Management (ICD-10-PCS; principal; 2017-04-20)
PROC: HZ2ZZZZ Detoxification Services for Substance Abuse Treatment (ICD-10-PCS; 2017-04-20)
PROC: HZ59ZZZ Individual Psychotherapy for Substance Abuse Treatment, Supportive (ICD-10-PCS; 2017-04-20)
PROC: GZHZZZZ Group Psychotherapy (ICD-10-PCS; 2017-04-20)
PROC: GZ56ZZZ Individual Psychotherapy, Supportive (ICD-10-PCS; 2017-04-20)
DX: F33.3 Major depressive disorder, recurrent, severe with psychotic symptoms (principal); R45.851 Suicidal ideations; F11.23 Opioid dependence with withdrawal; F10.239 Alcohol dependence with withdrawal, unspecified; F43.12 Post-traumatic stress disorder, chronic; I11.0 Hypertensive heart disease with heart failure; I50.9 Heart failure, unspecified; F14.10 Cocaine abuse, uncomplicated; F12.90 Cannabis use, unspecified, uncomplicated; E11.9 Type 2 diabetes mellitus without complications; E78.5 Hyperlipidemia, unspecified; G89.29 Other chronic pain; I25.10 Atherosclerotic heart disease of native coronary artery without angina pectoris; R60.0 Localized edema; L85.3 Xerosis cutis; F17.210 Nicotine dependence, cigarettes, uncomplicated; I25.2 Old myocardial infarction; Z59.0 Homelessness; Z79.02 Long term (current) use of antithrombotics/antiplatelets; Z79.4 Long term (current) use of insulin; Z79.82 Long term (current) use of aspirin; Z79.84 Long term (current) use of oral hypoglycemic drugs; Z79.899 Other long term (current) drug therapy; Z86.718 Personal history of other venous thrombosis and embolism; Z91.19 Patient's noncompliance with other medical treatment and regimen; Z95.1 Presence of aortocoronary bypass graft; Z95.5 Presence of coronary angioplasty implant and graft

== ENCOUNTER 2017-04-26 07:02 | Emergency (ER) | payer MEDICARE, OTHER ==
[2017-04-26 07:03] VITALS: BMI 31.5
[2017-04-26 07:13] VITALS: TEMP 98.2
--- NOTE | 2017-04-26 07:20 | C.PDOC ---
History Of Present Illness 51M c/o "hearing voices." he says they are "telling me to seek and destroy." he denies HI though, only reports SI. he says he has jumped in front of a truck in the past. reports etoh last night but denies daily use. +cannabis. denies other drugs. Time Seen by Provider: 04/26/17 07:18 Chief Complaint (Nursing): Psychiatric Evaluation Past Medical History Vital Signs: Last Vital Signs Temp 98.2 F 04/26/17 07:07 Pulse 99 H 04/26/17 07:07 Resp 16 04/26/17 07:07 BP 131/83 04/26/17 07:07 Pulse Ox 97 04/26/17 08:18 - Medical History PMH: Bipolar Disorder, CHF, Depression, HTN, Schizophrenia Denies: Atrial Fibrillation, Cardia Arrhythmia, Chronic Kidney Disease Surgical History: CABG, Coronary Stent Denies: Pacemaker Family History: States: Other Other Family History: nc - Social History Hx Alcohol Use: Yes (a quart a day) Hx Substance Use: Yes - Immunization History Hx Tetanus Toxoid Vaccination: Yes Hx Influenza Vaccination: Yes Hx Pneumococcal Vaccination: Yes Review Of Systems Except As Marked, All Systems Reviewed And Found Negative. Constitutional: Negative for: Fever, Chills Eyes: Negative for: Vision Change Cardiovascular: Negative for: Chest Pain Respiratory: Negative for: Cough, Shortness of Breath Gastrointestinal: Negative for: Vomiting, Abdominal Pain Neurological: Negative for: Weakness, Numbness, Headache Psych: Positive for: Psychosis, Suicidal ideation Physical Exam - Physical Exam Appears: Well, Non-toxic, No Acute Distress Skin: Warm, Dry Eye(s): bilateral: PERRL Nose: No Epistaxis Oral Mucosa: Moist Tongue: No Swelling Cardiovascular: Rhythm Regular Respiratory: No Decreased Breath Sounds, No Accessory Muscle Use Neurological/Psych: Oriented x3, Normal Motor, Normal Sensation, Other (no focal deficits) ED Course And Treatment - Laboratory Results Result Diagrams: 04/26/17 08:49 04/26/17 08:49 O2 Sat by Pulse Oximetry: 97 Medical Decision Making Medical Decision [facility] psych service evaluated and psychiatrist Dr Telles who recently dc pt from the hospital has cleared him for dc. Disposition - Disposition Disposition: HOME/ ROUTINE Disposition Time: 10:27 Condition: STABLE - Clinical Impression Clinical Impression: Hearing voices
[2017-04-26 08:54] LABS: BASO # 0.1 K/uL (0.0-0.2); BASO % 0.8 % (0.0-2.0); EOS # 0.1 K/uL (0.0-0.7); HEMOGLOBIN 11.9 g/dL (12.0-18.0); LYMPH # 1.7 K/uL (1.0-4.3); LYMPH % 17.7 % (20.0-40.0); MEAN CELL VOLUME 85.4 fL (80.0-94.0); MEAN CORPUSCULAR HGB CONC 31.6 g/dL (33.0-37.0); MEAN PLATELET VOLUME 8.8 fL (7.2-11.7); MONO # 1.1 K/uL (0.0-0.8); MONO % 11.4 % (0.0-10.0); NEUT # 6.7 K/uL (1.8-7.0); NEUT % 69.1 % (50.0-75.0); RBC 4.41 Mil/uL (4.40-5.90); WHITE BLOOD COUNT 9.7 K/uL (4.8-10.8)
[2017-04-26 08:56] LABS: SQUAMOUS EPITHIAL < 1 /hpf (0-5); URINE BILIRUBIN NEGATIVE (NEGATIVE); URINE BLOOD NEGATIVE (NEGATIVE); URINE CLARITY Clear (Clear); URINE COLOR Straw (YELLOW); URINE GLUCOSE (UA) NORMAL (Normal); URINE LEUKOCYTE ESTERASE NEG Leu/uL (Negative); URINE NITRATE NEGATIVE (NEGATIVE); URINE PROTEIN NEGATIVE (NEGATIVE); URINE UROBILINOGEN NORMAL mg/dL (0.2-1.0)
[2017-04-26 09:02] LABS: ALBUMIN 3.8 g/dL (3.5-5.0)
[2017-04-26 09:04] LABS: SALICYLATE < 1.0 mg/dL 1
[2017-04-26 09:05] LABS: ACETAMINOPHEN < 10.0 ug/mL (10.0-30.0); ALB/GLOB RATIO 0.9 (1.0-2.1); ALT/SGPT 45 U/L (21-72); AST/SGOT 40 U/L (17-59); BLOOD UREA NITROGEN 22 mg/dL (9-20); GFR AFRICAN-AMERICAN 59; GFR NON-AFRICAN AMERICAN 49
[2017-04-26 09:07] LABS: PHENCYCLIDINE, UR NEGATIVE (NEGATIVE)
[2017-04-26 09:11] LABS: BENZODIAZEPINES, UR NEGATIVE (NEGATIVE)
[2017-04-26 09:12] LABS: BARBITURATES, UR NEGATIVE (NEGATIVE)
[2017-04-26 09:15] LABS: OPIATES, UR NEGATIVE (NEGATIVE)
[2017-04-26 10:34] VITALS: BP 134/80; PULSE 86; RESP 18; O2SAT 99
== END 2017-04-26 12:00 | disposition home or self-care (01) ==
LOC: C.ER 07:02
DX: R44.0 Auditory hallucinations (principal)
CPT/HCPCS: 36415; 80053; 81001; 85025; 99284; G0480

== ENCOUNTER 2017-05-10 06:10 | Inpatient (IN) | payer MEDICARE, MEDICAID ==
[2017-05-10 06:10] VITALS: BMI 31.5
[2017-05-10 07:01] LABS: BASO % 0.2 % (0.0-2.0); EOS # 0.1 K/uL (0.0-0.7); EOS % 0.7 % (0.0-4.0); HEMOGLOBIN 11.5 g/dL (12.0-18.0); LYMPH # 3.2 K/uL (1.0-4.3); LYMPH % 26.7 % (20.0-40.0); MEAN CELL VOLUME 84.7 fL (80.0-94.0); MEAN CORPUSCULAR HEMOGLOBIN 26.6 pg (27.0-31.0); MEAN CORPUSCULAR HGB CONC 31.5 g/dL (33.0-37.0); MEAN PLATELET VOLUME 9.1 fL (7.2-11.7); MONO # 0.9 K/uL (0.0-0.8); MONO % 7.7 % (0.0-10.0); NEUT # 7.7 K/uL (1.8-7.0); NEUT % 64.7 % (50.0-75.0); RBC 4.33 Mil/uL (4.40-5.90); RED CELL DISTRIBUTION WIDTH 16.8 % (11.5-14.5); WHITE BLOOD COUNT 11.9 K/uL (4.8-10.8)
[2017-05-10 07:08] LABS: ALBUMIN 3.7 g/dL (3.5-5.0)
[2017-05-10 07:11] LABS: AST/SGOT 37 U/L (17-59); GFR AFRICAN-AMERICAN 38; GFR NON-AFRICAN AMERICAN 32
[2017-05-10 07:12] LABS: ALT/SGPT 52 U/L (21-72); BARBITURATES, UR NEGATIVE (NEGATIVE); BLOOD UREA NITROGEN 22 mg/dL (9-20)
[2017-05-10 07:16] LABS: PHENCYCLIDINE, UR NEGATIVE (NEGATIVE)
[2017-05-10 07:21] LABS: BENZODIAZEPINES, UR POSITIVE (NEGATIVE)
[2017-05-10 07:22] LABS: OPIATES, UR POSITIVE (NEGATIVE)
--- NOTE | 2017-05-10 07:38 | C.PDOC ---
History Of Present Illness 51 yr old male brought in via BLS, presents to the ER for suicidal ideation and admits to substance abuse. Patient reports last use was [employer]. Patient states he plans on throwing himself in front of a vehicle. Patient has prior history of displaying violent behavior towards healthcare professionals. Patient denies chest pain, SOB, nausea, vomiting, weakness or numbness. Time Seen by Provider: 05/10/17 07:27 Chief Complaint (Nursing): Psychiatric Evaluation History Per: Patient, EMS History/Exam Limitations: no limitations Onset/Duration Of Symptoms: Persistent Suicide/Self Injury Attempted (Context): Other (Jumping in front of a vehicle. ) Past Medical History Reviewed: Historical Data, Nursing Documentation, Vital Signs Vital Signs: Last Vital Signs Temp 98.1 F 05/10/17 08:43 Pulse 89 05/10/17 08:43 Resp 15 05/10/17 08:43 BP 104/57 L 05/10/17 08:43 Pulse Ox 94 L 05/10/17 08:43 - Medical History PMH: Bipolar Disorder, CHF, Depression, Diabetes, HTN, Schizophrenia, Seizures ( alcohol withdrawal) Surgical History: CABG, Coronary Stent - [facility] Procedures DETOXIFICATION SERVICES FOR SUBSTANCE ABUSE TREATMENT (04/20/17) GROUP PSYCHOTHERAPY (04/20/17) INDIV PSYCHOTHERAPY FOR SUBSTANCE ABUSE TREATMENT, SUPPORT (04/20/17) INDIVIDUAL PSYCHOTHERAPY, SUPPORTIVE (04/20/17) MEDICATION MANAGEMENT (04/20/17) Family History: States: No Known Family Hx - Social History Hx Alcohol Use: Yes (a quart a day) Hx Substance Use: Yes - Immunization History Hx Tetanus Toxoid Vaccination: Yes Hx Influenza Vaccination: Yes Hx Pneumococcal Vaccination: Yes Review Of Systems Except As Marked, All Systems Reviewed And Found Negative. Cardiovascular: Negative for: Chest Pain Respiratory: Negative for: Shortness of Breath Gastrointestinal: Negative for: Nausea, Vomiting Neurological: Negative for: Weakness, Numbness Psych: Positive for: Suicidal ideation Physical Exam - Physical Exam Appears: Non-toxic, No Acute Distress, Other ((+) Flat affect. Active SI. (-) No psychosis intox. ) Skin: Warm, Dry Head: Atraumatic, Normacephalic Eye(s): bilateral: Normal Inspection, PERRL, EOMI Respiratory: Normal Breath Sounds Extremity: Normal ROM, No Swelling Neurological/Psych: Oriented x3, Normal Speech, Normal Motor ED Course And Treatment - Laboratory Results Result Diagrams: 05/10/17 06:58 05/10/17 06:58 ECG: Interpreted By Me, Viewed By Me ECG Rhythm: Sinus Rhythm Interpretation Of ECG: TWI 1,V4,V5,V6. SAME LEADS FLAT IN EKG 04/23/17 Rate From EC (BPM) O2 Sat by Pulse Oximetry: 97 (RA ) Pulse Ox Interpretation: Normal - Radiology CXR: Interpreted by Me, Viewed By Me CXR Interpretation: Yes: No Acute Disease Progress - Re-Evaluation Re-evaluation Note: 05/10/17 07:46 PT NOW AGITATED REFUSING TO STAY. PT STILL CO ACTIVE SUICIDAL IDEATION. ADVISED CANNOT LEAVE DUE TO SUICIDAL CONCERN. CRISIS AWARE 05/10/17 08:15 PT NOW AGREES FOR ADMISSION HERE. 05/10/17 08:49 MED CLEAR FOR CRISIS EVAL. NO ACTIVE CP. RECOMMEND MED CONSULT FOR FU OF EKG - Data Reviewed Data Reviewed: Lab, Old records Medical Decision Making Medical Decision Making: PLAN: * CXR * EKG * Alcohol Serum * Drug Screen * Acetaminophen * CBC * CMP * HCG * Urinalysis * Xanax PO Disposition Counseled Patient/Family Regarding: Studies Performed, Diagnosis - Disposition Disposition: HOSPITALIZED Disposition Time: 08:50 Condition: STABLE - POA Present On Arrival: None - Clinical Impression Clinical Impression: Depression, Polysubstance abuse, Suicidal ideation - Scribe Statement The provider has reviewed the documentation as recorded by the Mary Graceibe Marisela Bermudez Provider Attestation: All medical record entries made by the Scribe were at my direction and personally dictated by me. I have reviewed the chart and agree that the record accurately reflects my personal performance of the history, physical exam, medical decision making, and the department course for this patient. I have also personally directed, reviewed, and agree with the discharge instructions and disposition. Decision To Admit - Pt Status Changed To: Hospital Disposition Of: Inpatient - Admit Certification Admit to Inpatient:: After my assessment, the patient will require hospitalization for at least two midnights. This is because of the severity of symptoms shown, intensity of services needed, and/or the medical risk in this patient being treated as an outpatient. - InPatient: Physician Admission Certification: I certify that this patient requires 2 or more midnights of care for the following reason:: SEE NOTE - . Bed Request Type: Psychiatry Admitting Physician: Vance Peguero Patient Diagnosis: Depression, Polysubstance abuse, Suicidal ideation
[2017-05-10 08:18] LABS: SALICYLATE < 1.0 mg/dL 1
[2017-05-10 08:19] LABS: ACETAMINOPHEN < 10.0 ug/mL (10.0-30.0)
[2017-05-10] MEDS ORDERED: Aluminum Hydroxide/Magnesium Hydroxide Susp (30 mL) PO PRN (08:35)
[2017-05-10 08:50] VITALS: O2SAT 97
--- NOTE | 2017-05-10 09:19 | RAD ---
PROCEDURE: CHEST RADIOGRAPH, 1 VIEW HISTORY: MED CLEAR COMPARISON: None comparison chest dated 04/25/2017 FINDINGS: LUNGS: Poor inspiration with low lung volumes, mild crowded bronchovascular markings and mild bibasilar atelectasis. PLEURA: No pneumothorax or pleural fluid seen. CARDIOVASCULAR: Sternotomy wires. Borderline/mild cardiomegaly. OSSEOUS STRUCTURES: No significant abnormalities. VISUALIZED UPPER ABDOMEN: Normal. OTHER FINDINGS: None. IMPRESSION: Poor inspiration with low lung volumes, mild crowded bronchovascular markings and mild bibasilar atelectasis. . Mild cardiomegaly.
[2017-05-10] MEDS ORDERED: Metoprolol Succinate 25 mg XL Tab PO SCH (10:00)
--- NOTE | 2017-05-10 11:21 | PCM.PSYCH ---
Initial Psychiatric Evaluation - Initial Psychiatric Evaluation Type of Admission: Voluntary Legal Status: Capacity Chief Complaint (in patient's own words): "I hate myself. I've never felt this way before. I'm not capable of doing anything on my own. I've lost all my skills and I need to stay in a psych hospital." History of Present Illness and Precipitating Events: Patient is a 51 year old , single, homeless, unemployed, male with a hx of depression, suicidal ideations, opioid use disorder and alcohol use disorder was admitted for treatment of depression, opioid and alcohol use. Patient was admitted here 2 weeks ago and said that he "made a mistake by leaving". He is very agitated and aggressive. He reports that he had an unpleasant encounter in the ER with an ER doctor and states that he will "blow his brains out and leave a note for her". Patient was recently in the newspaper for threatening to shoot a doctor. He was arrested but not charged. Patient has suicidal ideations of walking in front of traffic or throwing himself off a bridge. Patient has hallucinations of shadows around windows and hears voices that say "seek, kill, destroy". Patient states - "I hate myself, and I've never felt this way before. I'm not capable of doing anything on my own and I've lost all my skills. I need to stay in a psych hospital". Patient plays [employer], claims that he played with [place] and that he went to [place]. Patient reports that his 23 year old daughter overdosed in [place] in 2014 and that is when he started feeling depressed and using heroin. Patient regurgitated twice today. Psych hx: Heroin - 15-30 bags daily, starting in 2014 and last use was 05/08. Alcohol - Started drinking at 7 years of age and progressed to drink 750ml of Vodka daily, last use 05/09. Marijuana - 1 quarter ounce weekly, last use 1 week ago. Cocaine - 3 1/2 grams weekly, last use 1 week ago. Withdrawal symptoms - yawning, fatigue, stomach cramps, vomiting and diarrhea. Has been to detox once before and to rehab once before. Family psych hx: Mother had depression Medical hx: C4-5 herniated disc Social hx: single, homeless but occasionally lives with acquaintances, unemployed, no children (had one 23yo daughter who overdosed in 2015) Current Medications: Active Medications Generic Name Dose Route Start Last Admin Trade Name Freq PRN Reason Stop Dose Admin Al Hydrox/Mg Hydrox/Simethicone 30 ml 05/10/17 08:35 Maalox 30 Ml PO TID PRN Indigestion / Heartburn Aspirin 81 mg 05/10/17 10:00 Aspirin Chewable PO DAILY [facility] Clonidine HCl 0.1 mg 05/10/17 08:35 Catapres PO Q8 PRN COWS Score More or Equal to 5 Clopidogrel Bisulfate 75 mg 05/10/17 10:00 Plavix PO DAILY [facility] Escitalopram Oxalate 5 mg 05/10/17 10:00 Lexapro PO DAILY [facility] Gabapentin 300 mg 05/10/17 10:00 Neurontin PO TID [facility] Haloperidol 5 mg 05/10/17 08:38 Haldol PO Q2H PRN agitation max 4x/24h Hydroxyzine HCl 50 mg 05/10/17 08:38 Atarax PO Q6H PRN Anxiety Lisinopril 10 mg 05/10/17 10:00 Zestril PO DAILY [facility] Loperamide HCl 2 mg 05/10/17 08:35 Imodium PO Q8 PRN Diarrhea Methadone HCl 15 mg 05/11/17 09:30 Methadone PO 05/15/17 09:29 Q24H [facility] Taper Metoprolol Succinate 25 mg 05/10/17 10:00 Toprol Xl PO DAILY [facility] Ondansetron HCl 4 mg 05/10/17 08:35 Zofran Tab PO Q8 PRN Nausea/Vomiting Quetiapine Fumarate 100 mg 05/10/17 22:00 Seroquel PO [facility] Past Psychiatric History - Past Psychiatric History Previous Treatment History: Inpatient Pertinent Medical Hx (Current Medical&Sleep Prob, Allergies): Allergies Allergy/AdvReac Type Severity Reaction Status Date / Time chlorpromazine Allergy Severe THROAT Verified 04/26/17 07:10 [From Thorazine] SWEELS ibuprofen [From Motrin] Allergy Severe INTERNAL Verified 04/26/17 07:10 BLEEDING nitroglycerin Allergy Severe INTERNAL Verified 04/26/17 07:10 BLEEDING penicillin G Allergy Mild PALPITATION Verified 04/26/17 07:10 acetaminophen [From Tylenol] Allergy CRAMPS Verified 04/26/17 07:10 divalproex sodium Allergy SEIZURE Verified 04/26/17 07:10 [From Depakote] ketorolac [From Toradol] AdvReac INTERNAL Verified 04/26/17 07:10 BLEEDING Clopidogrel [Plavix] 75 mg PO DAILY 04/20/17 Gabapentin [Gralise] 300 mg PO TID 04/20/17 Metoprolol Succinate [Toprol XL] 25 mg PO DAILY 04/20/17 Mirtazapine [Remeron] 15 mg PO HS 04/20/17 Aspirin [Ecotrin] 81 mg PO DAILY #30 04/25/17 Clotrimazole 1% Cream [Lotrimin 1%] 1 gm TOP BID #1 04/25/17 Furosemide [Lasix] 20 mg PO DAILY 30 Days 04/25/17 Gabapentin [Neurontin] 300 mg PO TID #90 cap 04/25/17 Lisinopril [Zestril] 40 mg PO DAILY #30 tab 04/25/17 Mirtazapine [Remeron Soltab] 15 mg PO HS 30 Days 04/25/17 QUEtiapine [SEROquel] 100 mg PO HS #30 tab 04/25/17 Rosuvastatin Calcium [Crestor] 10 mg PO HS #30 tab 04/25/17 diltiaZEM [Cardizem] 30 mg PO Q8H 30 Days 04/25/17 metFORMIN [glucOPHAGE] 1,000 mg PO BID #30 tab 04/25/17 Review of Systems - Review of Systems All systems: reviewed and no additional remarkable complaints except - Constitutional Constitutional: Weakness, Malaise - Gastrointestinal Gastrointestinal: Cramping, Diarrhea - Psychiatric Psychiatric: As Per HPI, Abnormal Sleep Pattern, Anhedonia, Anxiety, Auditory Hallucinations, Depression, Difficulty Concentrating, Hallucinations, Hopelessness, Irritability, Mood Swings, Suicidal Ideation, Visual Hallucinations Mental Status Examination - Personal Presentation Personal Presentation: Looks stated age - Affect Affect: Constricted, Depressed - Motor Activity Motor Activity: Psychomotor Agitation - Reliability in Providing Information Reliability in Providing Information: Poor, due to altered mood - Speech Speech: Organized - Mood Mood: Depressed, Anxious - Formal Thought Process Formal Thought Process: Hallucinations, Paranoia - Hallucinations/Delusions Hallucinations: Visual (Shadows in windows), Auditory ("Seek, kill, destroy") - Obsessions/Compulsions Obsessions: No Compulsions: No - Cognitive Functions Orientation: Person, Place, Situation, Time Sensorium: Lethargic Attention/Concentration: Easily distracted Abstract Thinking: [place] Estimate of Intelligence: Average Judgement: Imparied, as evidence by: Poor judgement, Imparied, as evidence by: Lack of insight into illness - Risk Risk: Suicidal, Seizure, Withdrawal, Diminished functioning - Strength & Assets Inventory Strength & Assets Inventory: Interests/hobbies (Plays guitar) - Limitations Limitations: Other (Homeless) DSM 5 DX - DSM 5 DSM 5 Diagnosis: Bipolar Disorder mixed severer with psychosis Cocaine use disorder moderate Opioid use disorder severe Opioid withdrawal Alcohol use disorder severe - Recommended/Plan of Treatment Treatment Recommendations and Plan of Treatment: Bipolar Disorder mixed severer with psychosis CBT Psychoeducation Supportive therapy, group therapy, individual therapy Neurontin 300 mg by mouth 3 times a day Trazodone 50 mg by mouth daily at bedtime Seroquel 100 mg pO QHS Lexapro 5 mg pO Daily Cocaine use disorder moderate Monitor signs and symptoms Use VA for abstinence Opioid use disorder severe Opioid withdrawal CBT Psychoeducation Supportive therapy, individual therapy Use VA for abstinence Methadone taper Alcohol use disorder severe Monitor signs and symptoms Use VA for abstinence Ativan prn Heart disease Continue meds - Smoking Cessation Smoking Cessation Initiated: No
--- NOTE | 2017-05-10 11:42 | PCM.BM ---
<Nancy Telles - Last Filed: 05/10/17 12:43> - Diagnosis (1) Depression Status: Acute Interventions: 05/10/17 12:43 attend groups, take meds (2) Polysubstance abuse Status: Acute Interventions: 05/10/17 12:44 attend groups, take meds <Jen Zendejas - Last Filed: 05/12/17 14:02> Treatment Plan Problems - Problems identified on initial assessmt depression Date Initiated: 05/10/17 Time Initiated: 11:41 Status: Active substance abuse Date Initiated: 05/10/17 Time Initiated: 11:44 Assessment reference: NA Status: Active Treatment assets and liabiliti Patient Assests: adapts well, cooperative, ADL independent, negotiates basic needs Patient Liabilities: poor support system, substance abuse, legal issue - Milieu Protocol Maintain good personal hygiene: daily Encourage regular showers, daily Remind patient to perform daily oral care, daily Assist patient to perform ADL's Maintain personal safety: every shift Educate patient to report safety concerns to staff, every shift Monitor environment for contraband/sharps Medication safety: Monitor for expected outcome, potential side effects: every shift, Assess barriers to learning: every shift, Assess readiness for medication education: every shift <Vance Peguero - Last Filed: 05/15/17 22:47> - Diagnosis (1) Bipolar affective disorder, mixed, severe, with psychotic behavior Status: Acute Interventions: 05/15/17 22:46 * Assess/adjust medications daily and /or as needed * See patient on an individual basis 7x/week to assess level of manic behaviors and stability * Discuss risks, benefits, side effects and alternatives of medications * (2) Depression Status: Acute Interventions: 05/10/17 12:43 attend groups, take meds 05/15/17 22:46 * Assess/adjust medications daily and /or as needed * See patient on an individual basis 7x/week to assess symptoms of depression * Monitor for side effects & effectiveness of medications * (3) Opioid use disorder, severe, dependence Status: Acute Interventions: 05/15/17 22:47 * Assess 7x/week regarding severity of withdrawal * Educate regarding risks, benefits, side effects and alternatives of medications * Use Motivational Interviewing for abstinence * Use CBT for relapse prevention * Medication management for withdrawal symptoms * Encourage medication assisted treatment *
--- NOTE | 2017-05-10 16:10 | CARD ---
APPROVED REPORT EKG Measurement Heart [id number] <Conclusion> Normal sinus rhythm Possible Left atrial enlargement Left ventricular hypertrophy T wave abnormality, consider lateral ischemia Abnormal ECG
--- NOTE | 2017-05-10 16:21 | CP.PCM.CON ---
Addendum entered and electronically signed by Danica Silver DO 05/10/17 17: 09: (5) Diabetes Assessment and Plan: Patient denies Hx of DM. Hgb A1C check 04/23/17 was 7.2 Accuchecks ACHS ISS Status: Acute Original Note: <Danica Silver - Last Filed: 05/10/17 16:10> History of Present Illness - History of Present Illness History of Present Illness: Consult: Elevated BUN/Cr. 51 y/o male with PMHx of depression, DM, HTN, HLD, VA with stent and DVT in 2011 presented to ED with depressed mood and suicide ideation, wanting to throw himself in front of cars. Patient uses heroin, cocaine, and alcohol. Admits to nausea, vomiting and diarrhea which he attributes to withdrawing from heroin. He is asking for Methadone. Patient denies chest pain, lower extremity edema and shortness of breath. Patient is drowsy and is providing limited history. History obtained from chart. PMHx: depression, DM, HTN, HLD, VA in 2011 with stent placement, DVT in 2011, neck surgery with metal plates and screws placed in 2014 Social Hx:cocaine, heroin, alcohol (2 pints of vodka per day for 1 and half years) Allergies:Nitroglycerin- anaphylaxis PMD: none Review of Systems - Constitutional Constitutional: absent: Chills, Fever - Cardiovascular Cardiovascular: absent: Chest Pain, Dyspnea - Respiratory Respiratory: absent: Cough, Dyspnea - Gastrointestinal Gastrointestinal: absent: Abdominal Pain, Nausea, Vomiting - Genitourinary Genitourinary: absent: Difficulty Urinating, Dysuria - Musculoskeletal Musculoskeletal: absent: Numbness, Tingling - Neurological Neurological: absent: Weakness - Psychiatric Psychiatric: Suicidal Ideation - Endocrine Endocrine: absent: Fatigue Past Patient History - Infectious Disease Hx of Infectious Diseases: None - Past Social History Smoking Status: Light Smoker < 10 Cigarettes Daily - CARDIAC Hx Congestive Heart Failure: Yes Hx Hypertension: Yes - PULMONARY Hx Tuberculosis: No - NEUROLOGICAL Hx Seizures: Yes (alcohol withdrawal) - HEENT Hx HEENT Problems: No - RENAL Hx Chronic Kidney Disease: No - ENDOCRINE/METABOLIC Hx Endocrine Disorders: No - HEMATOLOGICAL/ONCOLOGICAL Hx Cancer: No Hx Human Immunodeficiency Virus (HIV): No - INTEGUMENTARY Hx Dermatological Problems: No - MUSCULOSKELETAL/RHEUMATOLOGICAL Hx Musculoskeletal Disorders: No Hx Falls: Yes - GASTROINTESTINAL Hx Gastrointestinal Disorders: No - GENITOURINARY/GYNECOLOGICAL Hx Sexually Transmitted Disorders: No - PSYCHIATRIC Hx Substance Use: No - SURGICAL HISTORY Hx Coronary Artery Bypass Graft: Yes Hx Coronary Stent: Yes - ANESTHESIA Hx Anesthesia: Yes Hx Anesthesia Reactions: No Meds Allergies/Adverse Reactions: Allergies Allergy/AdvReac Type Severity Reaction Status Date / Time chlorpromazine Allergy Severe THROAT Verified 04/26/17 07:10 [From Thorazine] SWEELS ibuprofen [From Motrin] Allergy Severe INTERNAL Verified 04/26/17 07:10 BLEEDING nitroglycerin Allergy Severe INTERNAL Verified 04/26/17 07:10 BLEEDING penicillin G Allergy Mild PALPITATION Verified 04/26/17 07:10 acetaminophen [From Tylenol] Allergy CRAMPS Verified 04/26/17 07:10 divalproex sodium Allergy SEIZURE Verified 04/26/17 07:10 [From Depakote] ketorolac [From Toradol] AdvReac INTERNAL Verified 04/26/17 07:10 BLEEDING - Medications Medications: Current Medications Al Hydrox/Mg Hydrox/Simethicone (Maalox 30 Ml) 30 ml PO TID PRN PRN Reason: Indigestion / Heartburn Aspirin (Aspirin Chewable) 81 mg PO DAILY [facility] Last Admin: 05/10/17 11:23 Dose: Not Given Clonidine HCl (Catapres) 0.1 mg PO Q8 PRN PRN Reason: COWS Score More or Equal to 5 Clopidogrel Bisulfate (Plavix) 75 mg PO DAILY [facility] Last Admin: 05/10/17 13:05 Dose: 75 mg Escitalopram Oxalate (Lexapro) 5 mg PO DAILY [facility] Last Admin: 05/10/17 13:05 Dose: 5 mg Gabapentin (Neurontin) 300 mg PO TID [facility] Last Admin: 05/10/17 13:15 Dose: Not Given Haloperidol (Haldol) 5 mg PO Q2H PRN PRN Reason: agitation max 4x/24h Hydroxyzine HCl (Atarax) 50 mg PO Q6H PRN PRN Reason: Anxiety Lisinopril (Zestril) 10 mg PO DAILY [facility] Last Admin: 05/10/17 13:12 Dose: Not Given Loperamide HCl (Imodium) 2 mg PO Q8 PRN PRN Reason: Diarrhea Methadone HCl (Methadone) 15 mg PO Q24H [facility] PRN Reason: Taper Stop: 05/15/17 09:29 Metoprolol Succinate (Toprol Xl) 25 mg PO DAILY [facility] Last Admin: 05/10/17 13:12 Dose: Not Given Ondansetron HCl (Zofran Tab) 4 mg PO Q8 PRN PRN Reason: Nausea/Vomiting Last Admin: 05/10/17 12:57 Dose: 4 mg Quetiapine Fumarate (Seroquel) 100 mg PO [facility] Physical Exam - Constitutional Appears: No Acute Distress (drowsy) - Head Exam Head Exam: NORMAL INSPECTION, NORMOCEPHALIC - Eye Exam Eye Exam: EOMI, Normal appearance - ENT Exam ENT Exam: Mucous Membranes Dry - Respiratory Exam Respiratory Exam: Clear to Auscultation Bilateral, NORMAL BREATHING PATTERN - Cardiovascular Exam Cardiovascular Exam: REGULAR RHYTHM, +S1, +S2 - GI/Abdominal Exam GI & Abdominal Exam: Normal Bowel Sounds, Soft - Extremities Exam Extremities exam: Positive for: normal inspection. Negative for: pedal edema - Neurological Exam Neurological exam: Oriented x3 - Psychiatric Exam Psychiatric exam: Flat Affect - Skin Skin Exam: Dry, Normal Color, Warm Results - Vital Signs Recent Vital Signs: Last Vital Signs Temp 98.1 F 05/10/17 08:43 Pulse 86 05/10/17 15:49 Resp 20 05/10/17 10:40 BP 93/57 L 05/10/17 15:49 Pulse Ox 97 05/10/17 08:51 - Labs Result Diagrams: 05/10/17 06:58 05/10/17 06:58 Assessment & Plan (1) REGGIE (acute kidney injury) Assessment and Plan: BUN/Cr 22/2.2 on admission. 1.5 04/26/17. Increase PO fluid intake. f/u CMP in the Am If BUN. Cr continues to uptrend will transfer to medical floor for IVF. Status: Acute (2) Hypertension Assessment and Plan: Stop Toprol as patient is cocaine positive Hold Zestril and Lasix for nephrotoxicity Will hold home Cardizem for low BP. Monitor BP and add medications as needed. Status: Acute (3) Depression Assessment and Plan: Management as per psych. Status: Acute (4) Suicidal ideation Assessment and Plan: Management as per psych Status: Acute (5) Diabetes Assessment and Plan: Patient denies Hx of DM. Check Hgb A1C. Status: Acute (6) CAD (coronary artery disease) Assessment and Plan: Patient with history of CABG and VA in 2012 Continue Aspirin 81 mg PO daily Continue Plavix 75 mg PO daily Stop BB as patient is cocaine positive. Status: Acute (7) Polysubstance abuse Assessment and Plan: Management as per psych. Status: Acute (8) Prophylactic measure Assessment and Plan: Protonix 40 mg PO daily Ambulates Status: Acute <Saw Ho M - Last Filed: 05/10/17 18:56> Meds - Medications Medications: Current Medications Al Hydrox/Mg Hydrox/Simethicone (Maalox 30 Ml) 30 ml PO TID PRN PRN Reason: Indigestion / Heartburn Aspirin (Aspirin Chewable) 81 mg PO DAILY [facility] Last Admin: 05/10/17 11:23 Dose: Not Given Clonidine HCl (Catapres) 0.1 mg PO Q8 PRN PRN Reason: COWS Score More or Equal to 5 Clopidogrel Bisulfate (Plavix) 75 mg PO DAILY [facility] Last Admin: 05/10/17 13:05 Dose: 75 mg Escitalopram Oxalate (Lexapro) 5 mg PO DAILY [facility] Last Admin: 05/10/17 13:05 Dose: 5 mg Famotidine (Pepcid) 20 mg PO DAILY [facility] Gabapentin (Neurontin) 300 mg PO TID [facility] Last Admin: 05/10/17 17:37 Dose: 300 mg Haloperidol (Haldol) 5 mg PO Q2H PRN PRN Reason: agitation max 4x/24h Hydroxyzine HCl (Atarax) 50 mg PO Q6H PRN PRN Reason: Anxiety Last Admin: 05/10/17 17:32 Dose: 50 mg Insulin Human Regular (Novolin R) 0 unit SC [facility] PRN Reason: Protocol Lisinopril (Zestril) 10 mg PO DAILY [facility] Last Admin: 05/10/17 13:12 Dose: Not Given Loperamide HCl (Imodium) 2 mg PO Q8 PRN PRN Reason: Diarrhea Lorazepam (Ativan) 1 mg PO Q6H PRN PRN Reason: Anxiety Methadone HCl (Methadone) 15 mg PO Q24H [facility] PRN Reason: Taper Stop: 05/15/17 09:29 Ondansetron HCl (Zofran Tab) 4 mg PO Q8 PRN PRN Reason: Nausea/Vomiting Last Admin: 05/10/17 12:57 Dose: 4 mg Quetiapine Fumarate (Seroquel) 100 mg PO HS [facility] Results - Vital Signs Recent Vital Signs: Last Vital Signs Temp 98.1 F 05/10/17 08:43 Pulse 86 05/10/17 15:49 Resp 20 05/10/17 10:40 BP 93/57 L 05/10/17 15:49 Pulse Ox 97 05/10/17 08:51 - Labs Result Diagrams: 05/10/17 06:58 05/10/17 06:58 Attending/Attestation - Attestation I have personally seen and examined this patient.: Yes I have fully participated in the care of the patient.: Yes I have reviewed all pertinent clinical information: Yes Notes (Text): 05/10/17 18:55 Patient was seen and examined at bedside with the resident Patient is dehydrated the secondary to diarrhea and poor oral intake We will encourage oral hydration Continue medical management for his chronic medical conditions including hypertension, coronary artery disease and diverticulitis I discussed the plan of care with the resident and I agree with the consultation note by the resident.
[2017-05-10] MEDS: (Novolin R) Insulin Human Regular 100 units/ml vial SC SCH (21:17)
[2017-05-11] MEDS: (Novolin R) Insulin Human Regular 100 units/ml vial SC SCH ×4 (08:59→21:45)
[2017-05-11 12:03] LABS: EOS % 0.4 % (0.0-4.0); HEMOGLOBIN 10.5 g/dL (12.0-18.0); LYMPH # 0.9 K/uL (1.0-4.3); LYMPH % 11.6 % (20.0-40.0); MEAN CELL VOLUME 85.3 fL (80.0-94.0); MEAN CORPUSCULAR HEMOGLOBIN 26.6 pg (27.0-31.0); MEAN CORPUSCULAR HGB CONC 31.2 g/dL (33.0-37.0); MEAN PLATELET VOLUME 9.2 fL (7.2-11.7); MONO # 0.4 K/uL (0.0-0.8); MONO % 5.4 % (0.0-10.0); NEUT # 6.2 K/uL (1.8-7.0); NEUT % 82.6 % (50.0-75.0); RBC 3.95 Mil/uL (4.40-5.90); RED CELL DISTRIBUTION WIDTH 16.6 % (11.5-14.5); WHITE BLOOD COUNT 7.5 K/uL (4.8-10.8)
[2017-05-11 12:20] LABS: ALB/GLOB RATIO 0.9 (1.0-2.1)
[2017-05-11 12:21] LABS: CALCIUM 8.4 mg/dl (8.6-10.4)
--- NOTE | 2017-05-11 12:54 | CP.PCM.PN ---
<DomingaManuel - Last Filed: 05/11/17 12:51> Subjective - Date & Time of Evaluation Date of Evaluation: 05/11/17 Time of Evaluation: 12:52 - Subjective Subjective: PGY-[address] Ho's Service: Pt seen and examined at bedside. Pt found walking corridors of psych floor in no distress. He was oriented and calm at time of interview, with no agitation. He denies complaints at this time. Pt was asked to increase his PO intake, and he states he has been trying to drink more today. He denies any GI distress today including abd pain, nausea, vomiting, or diarrhea. He denies H/SI. Objective - Vital Signs/Intake and Output Vital Signs (last 24 hours): Temp Pulse Resp BP Pulse Ox 98.1 F 86 20 93/57 L 97 05/10/17 08:43 05/10/17 15:49 05/10/17 10:40 05/10/17 15:49 05/10/17 08:51 - Medications Medications: Current Medications Al Hydrox/Mg Hydrox/Simethicone (Maalox 30 Ml) 30 ml PO TID PRN PRN Reason: Indigestion / Heartburn Aspirin (Aspirin Chewable) 81 mg PO DAILY [facility] Last Admin: 05/11/17 10:42 Dose: 81 mg Clonidine HCl (Catapres) 0.1 mg PO Q8 PRN PRN Reason: COWS Score More or Equal to 5 Clopidogrel Bisulfate (Plavix) 75 mg PO DAILY [facility] Last Admin: 05/11/17 10:41 Dose: 75 mg Escitalopram Oxalate (Lexapro) 5 mg PO DAILY [facility] Last Admin: 05/11/17 10:18 Dose: 5 mg Famotidine (Pepcid) 20 mg PO DAILY [facility] Last Admin: 05/11/17 10:18 Dose: 20 mg Gabapentin (Neurontin) 300 mg PO TID [facility] Last Admin: 05/11/17 10:19 Dose: 300 mg Haloperidol (Haldol) 5 mg PO Q2H PRN PRN Reason: agitation max 4x/24h Last Admin: 05/10/17 21:43 Dose: 5 mg Hydroxyzine HCl (Atarax) 50 mg PO Q6H PRN PRN Reason: Anxiety Last Admin: 05/10/17 17:32 Dose: 50 mg Insulin Glargine (Lantus) 10 unit SC [facility] Insulin Human Regular (Novolin R) 0 unit SC [facility] PRN Reason: Protocol Last Admin: 05/11/17 12:25 Dose: 2 unit Lisinopril (Zestril) 10 mg PO DAILY [facility] Last Admin: 05/10/17 13:12 Dose: Not Given Loperamide HCl (Imodium) 2 mg PO Q8 PRN PRN Reason: Diarrhea Lorazepam (Ativan) 1 mg PO Q6H PRN PRN Reason: Anxiety Last Admin: 05/10/17 20:12 Dose: 1 mg Methadone HCl (Methadone) 15 mg PO Q24H [facility] PRN Reason: Taper Stop: 05/15/17 09:29 Last Admin: 05/11/17 10:18 Dose: 15 mg Ondansetron HCl (Zofran Tab) 4 mg PO Q8 PRN PRN Reason: Nausea/Vomiting Last Admin: 05/10/17 12:57 Dose: 4 mg Quetiapine Fumarate (Seroquel) 100 mg PO [facility] Last Admin: 05/10/17 21:43 Dose: 100 mg - Labs Labs: 05/11/17 11:00 05/11/17 11:00 - Constitutional Appears: Non-toxic, No Acute Distress - Head Exam Head Exam: ATRAUMATIC, NORMOCEPHALIC - Eye Exam Eye Exam: EOMI Pupil Exam: PERRL - ENT Exam ENT Exam: Mucous Membranes Dry - Respiratory Exam Respiratory Exam: Clear to Ausculation Bilateral, NORMAL BREATHING PATTERN - Cardiovascular Exam Cardiovascular Exam: REGULAR RHYTHM, +S1, +S2 - GI/Abdominal Exam GI & Abdominal Exam: Soft, Normal Bowel Sounds. absent: Tenderness - Extremities Exam Extremities Exam: Normal Inspection. absent: Pedal Edema - Back Exam Back Exam: absent: CVA tenderness (L), CVA tenderness (R) - Neurological Exam Neurological Exam: Alert, Awake, Oriented x3 - Psychiatric Exam Psychiatric exam: Normal Affect, Normal Mood. absent: Agitated - Skin Skin Exam: Normal Color, Warm Assessment and Plan - Assessment and Plan (Free Text) Plan: (1) REGGIE (acute kidney injury) Assessment and Plan: Improving BUN/Cr. - 22/2.2 on admission. 1.5 today (return to baseline from previous admission) Increase PO fluid intake. f/u CMP in the Am Status: Acute (2) Hypertension Assessment and Plan: Still holding home Cardizem for low BP. Stop Toprol as patient is cocaine positive Hold Zestril and Lasix for nephrotoxicity Monitor BP and add medications as needed. Status: Acute (3) Depression Assessment and Plan: Management as per psych. Status: Acute (4) Suicidal ideation Assessment and Plan: Management as per psych Status: Acute (5) Diabetes Assessment and Plan: Patient denies Hx of DM. Check Hgb A1C - not performed on weekend per lab, will have to f/u on Saturday BG elevated Start Lantus 10 units HS ISS Status: Acute (6) CAD (coronary artery disease) Assessment and Plan: Patient with history of CABG and [place] in 2011 Continue Aspirin 81 mg PO daily Continue Plavix 75 mg PO daily Stop BB as patient is cocaine positive. Status: Acute (7) Polysubstance abuse Assessment and Plan: Management as per psych. Status: Acute (8) Prophylactic measure Assessment and Plan: Protonix 40 mg PO daily Ambulates Status: Acute Discussed with Dr. Vic Orr PGY-1 <Saw Ho - Last Filed: 05/11/17 17:23> Objective - Vital Signs/Intake and Output Vital Signs (last 24 hours): Temp Pulse Resp BP Pulse Ox 98.8 F 93 H 20 111/67 97 05/11/17 14:34 05/11/17 15:55 05/11/17 14:34 05/11/17 15:55 05/10/17 08:51 - Medications Medications: Current Medications Al Hydrox/Mg Hydrox/Simethicone (Maalox 30 Ml) 30 ml PO TID PRN PRN Reason: Indigestion / Heartburn Aspirin (Aspirin Chewable) 81 mg PO DAILY [facility] Last Admin: 05/11/17 10:42 Dose: 81 mg Clonidine HCl (Catapres) 0.1 mg PO Q8 PRN PRN Reason: COWS Score More or Equal to 5 Clopidogrel Bisulfate (Plavix) 75 mg PO DAILY [facility] Last Admin: 05/11/17 10:41 Dose: 75 mg Escitalopram Oxalate (Lexapro) 5 mg PO DAILY [facility] Last Admin: 05/11/17 10:18 Dose: 5 mg Famotidine (Pepcid) 20 mg PO DAILY [facility] Last Admin: 05/11/17 10:18 Dose: 20 mg Gabapentin (Neurontin) 300 mg PO TID [facility] Last Admin: 05/11/17 16:10 Dose: 300 mg Haloperidol (Haldol) 5 mg PO Q2H PRN PRN Reason: agitation max 4x/24h Last Admin: 05/10/17 21:43 Dose: 5 mg Hydroxyzine HCl (Atarax) 50 mg PO Q6H PRN PRN Reason: Anxiety Last Admin: 05/11/17 16:13 Dose: 50 mg Insulin Glargine (Lantus) 10 unit SC HS [facility] Insulin Human Regular (Novolin R) 0 unit SC [facility] PRN Reason: Protocol Last Admin: 05/11/17 16:07 Dose: 6 unit Lisinopril (Zestril) 10 mg PO DAILY [facility] Last Admin: 05/10/17 13:12 Dose: Not Given Loperamide HCl (Imodium) 2 mg PO Q8 PRN PRN Reason: Diarrhea Lorazepam (Ativan) 1 mg PO Q6H PRN PRN Reason: Anxiety Last Admin: 05/11/17 14:43 Dose: 1 mg Methadone HCl (Methadone) 15 mg PO Q24H [facility] PRN Reason: Taper Stop: 05/15/17 09:29 Last Admin: 05/11/17 10:18 Dose: 15 mg Methadone HCl (Methadone) 10 mg PO ONCE ONE Stop: 05/12/17 10:31 Ondansetron HCl (Zofran Tab) 4 mg PO Q8 PRN PRN Reason: Nausea/Vomiting Last Admin: 05/10/17 12:57 Dose: 4 mg Quetiapine Fumarate (Seroquel) 200 mg PO [facility] - Labs Labs: 05/11/17 11:00 05/11/17 11:00 Attending/Attestation - Attestation I have personally seen and examined this patient.: Yes I have fully participated in the care of the patient.: Yes I have reviewed all pertinent clinical information, including history, physical exam and plan: Yes Notes (Text): 05/11/17 17:22 Patient seen and examined at bedside Acute kidney injury is improving with oral hydration Continue to hold antihypertensive medication because of for low blood pressure We will add Lantus for hypoglycemia I discussed the plan of care with the resident and agree with assessment and plan documented.
--- NOTE | 2017-05-11 17:58 | PCM.PYCHPN ---
Psychiatric Progress Note - Psychiatric Progress Note Patient seen today, length of contact: 15 minutes Patient Chief Complaint: I'm still depressed and suicidal at times with plan to take my head on the wright. Problems Identified/Issues Discussed: Patient seen. Chart reviewed. Case discussed with the staff. Issues related to illness and treatment were discussed with the patient. Patient reported he still hear voices at times telling him to kill himself. Because of that he feels depressed. Patient reported that at times he feels suicidal with plan to get his head on the wright. But these thoughts are not there all the time. Reported compliant with treatment with no adverse affects. Tolerating treatment very well. Patient is also tolerating methadone with minimal withdrawal symptoms. Dose of Seroquel was increased to 200 mg from 100 mg. At the time of evaluation, patient was awake alert oriented 3, had no delusions, no auditory or visual hallucinations, no suicidal ideations or homicidal ideations. Medical Problems: Hypertension Diabetes mellitus Coronary artery disease Diagnostic Results: Reviewed DSM 5 Symptoms Update: Some improvement with treatment Medication Change: Yes (Dose of Seroquel increased to 200 mg) Medical Record Reviewed: Yes Consults ordered or reviewed: Reviewed Mental Status Examination - Cognitive Function Orientation: Person, Place, Situation, Time Memory: Intact Attention: WNL Concentration: WNL Association: WN Fund of Knowledge: [facility] Decription of patient's judgement and insights: Fair - Mood Mood: Depressed - Affect Affect: Constricted, Depressed - Speech Speech: Soft - Formal Thought Process Formal Thought Process: Other - Suicidal Ideation Suicidal Ideation: No - Homicidal Ideation Homicidal Ideation: No Goal/Treatment Plan - Goal/Treatment Plan Need for Continued Stay: Remain at risks for inpatient hospitalization, Discharge may exacerbated symptoms, Severe functional impairment Progress Toward Problem(s) and Goals/Treatment Plan: Some improvement with treatment Patient education Supportive therapy Dose of Seroquel was increased to 200 mg Continue rest of the treatment as before Patient wants to go to a snf treatment program after discharge from the hospital for follow-up care Estimated Date of D/C: 05/15/17 - Smoking Cessation Smoking Cessation Initiated: No
[2017-05-11] MEDS: (Lantus) Insulin Glargine, Recombinant SC SCH (21:19)
--- NOTE | 2017-05-12 07:04 | CP.PCM.PN ---
<Manuel Orr - Last Filed: 05/12/17 16:09> Subjective - Date & Time of Evaluation Date of Evaluation: 05/12/17 Time of Evaluation: 07:04 - Subjective Subjective: PGY-[address] Ho's Service: Pt seen and examined at bedside. Pt interviewed at nursing desk in no acute distress or agitation. He denies complaints at this time. He asked for his kidney numbers today and was told labwork showed they were about the same as yesterday. Pt was asked if he increased his PO fluid intake, and responded he tried to but sometimes forgets to drink enough water. He complains of swollen tongue and was given steroid/benadryl for allergic reaction by psych team. He denies H/SI. Objective - Vital Signs/Intake and Output Vital Signs (last 24 hours): Temp Pulse Resp BP Pulse Ox 98.8 F 93 H 20 111/67 97 05/11/17 14:34 05/11/17 15:55 05/11/17 14:34 05/11/17 15:55 05/10/17 08:51 - Medications Medications: Current Medications Al Hydrox/Mg Hydrox/Simethicone (Maalox 30 Ml) 30 ml PO TID PRN PRN Reason: Indigestion / Heartburn Aspirin (Aspirin Chewable) 81 mg PO DAILY [facility] Last Admin: 05/11/17 10:42 Dose: 81 mg Clonidine HCl (Catapres) 0.1 mg PO Q8 PRN PRN Reason: COWS Score More or Equal to 5 Clopidogrel Bisulfate (Plavix) 75 mg PO DAILY [facility] Last Admin: 05/11/17 10:41 Dose: 75 mg Escitalopram Oxalate (Lexapro) 5 mg PO DAILY [facility] Last Admin: 05/11/17 10:18 Dose: 5 mg Famotidine (Pepcid) 20 mg PO DAILY [facility] Last Admin: 05/11/17 10:18 Dose: 20 mg Gabapentin (Neurontin) 300 mg PO TID [facility] Last Admin: 05/11/17 18:05 Dose: 300 mg Haloperidol (Haldol) 5 mg PO Q2H PRN PRN Reason: agitation max 4x/24h Last Admin: 05/10/17 21:43 Dose: 5 mg Hydroxyzine HCl (Atarax) 50 mg PO Q6H PRN PRN Reason: Anxiety Last Admin: 05/12/17 06:03 Dose: 50 mg Insulin Glargine (Lantus) 10 unit SC [facility] Last Admin: 05/11/17 21:19 Dose: 10 unit Insulin Human Regular (Novolin R) 0 unit SC [facility] PRN Reason: Protocol Last Admin: 05/11/17 21:45 Dose: Not Given Lisinopril (Zestril) 10 mg PO DAILY [facility] Last Admin: 05/10/17 13:12 Dose: Not Given Loperamide HCl (Imodium) 2 mg PO Q8 PRN PRN Reason: Diarrhea Last Admin: 05/11/17 22:45 Dose: 2 mg Lorazepam (Ativan) 1 mg PO Q6H PRN PRN Reason: Anxiety Last Admin: 05/11/17 21:19 Dose: 1 mg Methadone HCl (Methadone) 15 mg PO Q24H [facility] PRN Reason: Taper Stop: 05/15/17 09:29 Last Admin: 05/11/17 10:18 Dose: 15 mg Methadone HCl (Methadone) 10 mg PO ONCE ONE Stop: 05/12/17 10:31 Mirtazapine (Remeron) 30 mg PO [facility] Last Admin: 05/11/17 23:00 Dose: 30 mg Ondansetron HCl (Zofran Tab) 4 mg PO Q8 PRN PRN Reason: Nausea/Vomiting Last Admin: 05/10/17 12:57 Dose: 4 mg Quetiapine Fumarate (Seroquel) 200 mg PO [facility] Last Admin: 05/11/17 21:19 Dose: 200 mg - Labs Labs: 05/11/17 11:00 05/11/17 11:00 - Additional Findings Additional findings: - Constitutional Appears: Non-toxic, No Acute Distress, Large body habitus noted - Head Exam Head Exam: ATRAUMATIC, NORMOCEPHALIC - Eye Exam Eye Exam: EOMI Pupil Exam: PERRL - ENT Exam ENT Exam: Mucous Membranes still dry - tongue swollen, patient with lisp while speaking - Respiratory Exam Respiratory Exam: Clear to Ausculation Bilateral, NORMAL BREATHING PATTERN - Cardiovascular Exam Cardiovascular Exam: REGULAR RHYTHM, +S1, +S2 - GI/Abdominal Exam GI & Abdominal Exam: Soft, Normal Bowel Sounds. absent: Tenderness - Extremities Exam Extremities Exam: Normal Inspection. absent: Pedal Edema - Back Exam Back Exam: absent: CVA tenderness (L), CVA tenderness (R) - Neurological Exam Neurological Exam: Alert, Awake, Oriented x3 - Psychiatric Exam Psychiatric exam: Normal Affect, Normal Mood. absent: Agitated - Skin Skin Exam: Normal Color, Warm Assessment and Plan - Assessment and Plan (Free Text) Plan: (1) REGGIE (acute kidney injury) Assessment and Plan: Improving BUN/Cr. - 22/2.2 on admission. 1.6 today (same as baseline from previous admission) Advised again to increase PO fluid intake. f/u CMP in the Am Status: Acute (2) Hypertension Controlled Stop Toprol as patient is cocaine positive Clonidine 0.1 mg PO q8H PRN Hold Zestril and Lasix for nephrotoxicity Monitor BP (3) Depression Assessment and Plan: Management as per psych. Status: Acute (4) Suicidal ideation Assessment and Plan: Management as per psych Status: Acute (5) Diabetes BG elevated - Start Heart healthy, diabetic diet Patient denies Hx of DM. Check Hgb A1C - not performed on weekend per lab, will have to f/u on Saturday continue Lantus 10 units HS ISS Status: Acute (6) CAD (coronary artery disease) Assessment and Plan: Patient with history of CABG and [place] in 2011 Continue Aspirin 81 mg PO daily Continue Plavix 75 mg PO daily Stop BB as patient is cocaine positive. Status: Acute (7) Polysubstance abuse Assessment and Plan: Management as per psych. Status: Acute (8) Prophylactic measure Assessment and Plan: Protonix 40 mg PO daily [facility] Status: Acute Discussed with Dr. Vic Orr PGY-1 <Saw Ho - Last Filed: 05/12/17 17:04> Objective - Vital Signs/Intake and Output Vital Signs (last 24 hours): Temp Pulse Resp BP Pulse Ox 98.1 F 98 H 20 112/68 97 05/12/17 08:19 05/12/17 16:52 05/12/17 08:19 05/12/17 16:52 05/10/17 08:51 - Medications Medications: Current Medications Al Hydrox/Mg Hydrox/Simethicone (Maalox 30 Ml) 30 ml PO TID PRN PRN Reason: Indigestion / Heartburn Clonidine HCl (Catapres) 0.1 mg PO Q8 PRN PRN Reason: COWS Score More or Equal to 5 Clopidogrel Bisulfate (Plavix) 75 mg PO DAILY [facility] Last Admin: 05/12/17 11:32 Dose: 75 mg Escitalopram Oxalate (Lexapro) 10 mg PO DAILY [facility] Famotidine (Pepcid) 20 mg PO DAILY [facility] Last Admin: 05/12/17 09:21 Dose: 20 mg Gabapentin (Neurontin) 300 mg PO TID [facility] Last Admin: 05/12/17 09:22 Dose: 300 mg Haloperidol (Haldol) 5 mg PO Q2H PRN PRN Reason: agitation max 4x/24h Last Admin: 05/10/17 21:43 Dose: 5 mg Hydroxyzine HCl (Atarax) 50 mg PO Q6H PRN PRN Reason: Anxiety Last Admin: 05/12/17 11:46 Dose: 50 mg Insulin Glargine (Lantus) 10 unit SC HS [facility] Last Admin: 05/11/17 21:19 Dose: 10 unit Insulin Human Regular (Novolin R) 0 unit SC [facility] PRN Reason: Protocol Last Admin: 05/12/17 11:41 Dose: 4 unit Lisinopril (Zestril) 10 mg PO DAILY [facility] Last Admin: 05/10/17 13:12 Dose: Not Given Loperamide HCl (Imodium) 2 mg PO Q8 PRN PRN Reason: Diarrhea Last Admin: 05/12/17 16:18 Dose: 2 mg Lorazepam (Ativan) 1 mg PO Q6H PRN PRN Reason: Anxiety Last Admin: 05/11/17 21:19 Dose: 1 mg Methadone HCl (Methadone) 10 mg PO Q24H [facility] PRN Reason: Taper Stop: 05/15/17 09:29 Last Admin: 05/12/17 09:21 Dose: 10 mg Mirtazapine (Remeron) 15 mg PO HS [facility] Ondansetron HCl (Zofran Tab) 4 mg PO Q8 PRN PRN Reason: Nausea/Vomiting Last Admin: 05/10/17 12:57 Dose: 4 mg - Labs Labs: 05/12/17 08:36 05/12/17 08:36 Attending/Attestation - Attestation I have personally seen and examined this patient.: Yes I have fully participated in the care of the patient.: Yes I have reviewed all pertinent clinical information, including history, physical exam and plan: Yes Notes (Text): 05/12/17 16:56 Patient seen and examined at bedside. Renal function is improved today with oral hydration Continue current management. Encourage oral hydration Management of psych disorder as per the primary psychiatry team Discussed the plan of care with the resident and agree with assessment and plan documented by the resident.
[2017-05-12] MEDS: (Novolin R) Insulin Human Regular 100 units/ml vial SC SCH ×4 (08:23→21:01)
[2017-05-12 08:42] LABS: BASO % 0.4 % (0.0-2.0); EOS % 0.3 % (0.0-4.0); HEMOGLOBIN 11.3 g/dL (12.0-18.0); LYMPH # 1.7 K/uL (1.0-4.3); LYMPH % 21.8 % (20.0-40.0); MEAN CELL VOLUME 85.4 fL (80.0-94.0); MEAN CORPUSCULAR HEMOGLOBIN 27.3 pg (27.0-31.0); MEAN PLATELET VOLUME 9.8 fL (7.2-11.7); MONO # 0.4 K/uL (0.0-0.8); MONO % 5.5 % (0.0-10.0); NEUT # 5.6 K/uL (1.8-7.0); NRBC % 0.1 % (0.0-2.0); RBC 4.13 Mil/uL (4.40-5.90); WHITE BLOOD COUNT 7.7 K/uL (4.8-10.8)
[2017-05-12 08:49] LABS: ALBUMIN 2.9 g/dL (3.5-5.0)
[2017-05-12 08:52] LABS: ALB/GLOB RATIO 0.9 (1.0-2.1)
[2017-05-12 08:53] LABS: CALCIUM 8.2 mg/dl (8.6-10.4)
[2017-05-12] MEDS ORDERED: DiphenhydrAMINE 50 mg/ml Inj ONE (10:37)
[2017-05-12] MEDS: DiphenhydrAMINE 50 mg/ml Inj IM STA ×2 (10:50→20:14)
--- NOTE | 2017-05-12 13:00 | PCM.PYCHPN ---
Psychiatric Progress Note - Psychiatric Progress Note Patient seen today, length of contact: 15 minutes Patient Chief Complaint: "I'm withdrawing" Problems Identified/Issues Discussed: The pt is seen, chart reviewed, case discussed with staff. The pt is compliant with medications and he had an allergic reaction to one of them. He thinks it's the seroquel but the tag writer stopped both seroquel and ASA. His tongue was swollen. It could be dystonia too but less likely. Nevertheless, he got benadryl, cogentin, prednisone and atarax He improved within hours. Symptoms are slowly improving but needs more time to stabilize. He does not see the improvement and remains irate, splitting, demanding and entitled. After care discussed, support and psychoeducation given. He is not sure what he will do Medication Change: Yes (dc seroquel) Medical Record Reviewed: Yes Mental Status Examination - Cognitive Function Orientation: Person, Place, Situation, Time Memory: Intact Attention: WNL Concentration: Poor Association: WNL Fund of Knowledge: Poor - Mood Mood: Depressed, Other (irate) - Affect Affect: Constricted, Depressed - Speech Speech: Soft - Formal Thought Process Formal Thought Process: Other - Suicidal Ideation Suicidal Ideation: No - Homicidal Ideation Homicidal Ideation: No Goal/Treatment Plan - Goal/Treatment Plan Need for Continued Stay: Discharge may exacerbated symptoms, Severe functional impairment Progress Toward Problem(s) and Goals/Treatment Plan: Continue meds Monitor side-effects Detox continues Support and psychoed CT and cbt after care by CITLALLI 34 min Estimated Date of D/C: 05/15/17
[2017-05-12] MEDS: (Lantus) Insulin Glargine, Recombinant SC SCH (21:02)
[2017-05-13 08:06] VITALS: BP 169/92; PULSE 90; RESP 18; TEMP 97.5
[2017-05-13 08:28] LABS: BASO # 0.1 K/uL (0.0-0.2); BASO % 0.9 % (0.0-2.0); EOS # 0.1 K/uL (0.0-0.7); EOS % 0.9 % (0.0-4.0); HEMOGLOBIN 11.1 g/dL (12.0-18.0); LYMPH # 1.9 K/uL (1.0-4.3); LYMPH % 20.2 % (20.0-40.0); MEAN CELL VOLUME 85.3 fL (80.0-94.0); MEAN CORPUSCULAR HEMOGLOBIN 27.2 pg (27.0-31.0); MEAN CORPUSCULAR HGB CONC 31.8 g/dL (33.0-37.0); MEAN PLATELET VOLUME 9.7 fL (7.2-11.7); MONO # 0.7 K/uL (0.0-0.8); NEUT # 6.6 K/uL (1.8-7.0); RBC 4.07 Mil/uL (4.40-5.90); RED CELL DISTRIBUTION WIDTH 16.8 % (11.5-14.5); WHITE BLOOD COUNT 9.3 K/uL (4.8-10.8)
[2017-05-13 08:39] LABS: ALBUMIN 3.7 g/dL (3.5-5.0)
[2017-05-13 08:42] LABS: ALT/SGPT 38 U/L (21-72); AST/SGOT 32 U/L (17-59); BLOOD UREA NITROGEN 22 mg/dL (9-20); CALCIUM 8.8 mg/dl (8.6-10.4); GFR AFRICAN-AMERICAN > 60; GFR NON-AFRICAN AMERICAN > 60
[2017-05-13 08:43] LABS: MAGNESIUM 2.1 mg/dL (1.6-2.3)
--- NOTE | 2017-05-13 09:33 | CP.PCM.PN ---
Subjective - Date & Time of Evaluation Date of Evaluation: 05/13/17 Time of Evaluation: 09:45 - Subjective Subjective: Medicine Note (PGY 1): Dr. Hakeem Estrada Patient was seen and examined at bedside on the psychiatry unit. Patient was very agitated and frustrated, reporting that he is being treated unfairly and no one cares about this medical needs, therefore, he plans on killing himself after discharge in order to prove a point. Patient had complaints of chest pain radiating to his left arm and jaw, nausea, diarrhea and demanding to be admitted to the regular medical floor. Patient stated that he last used heroin Saturday evening. Patient admits to cough, diarrhea, nausea, chest pain but denies sob and abdominal pain. Patient is tolerating diet and ambulating. Objective - Vital Signs/Intake and Output Vital Signs (last 24 hours): Temp Pulse Resp BP Pulse Ox 97.5 F L 90 18 169/92 H 97 05/13/17 08:06 05/13/17 08:06 05/13/17 08:06 05/13/17 08:06 05/10/17 08:51 - Medications Medications: Current Medications Acetaminophen (Tylenol 325mg Tab) 650 mg PO Q6 PRN PRN Reason: Pain, moderate (4-7) Al Hydrox/Mg Hydrox/Simethicone (Maalox 30 Ml) 30 ml PO TID PRN PRN Reason: Indigestion / Heartburn Clonidine HCl (Catapres) 0.1 mg PO Q8 PRN PRN Reason: COWS Score More or Equal to 5 Clopidogrel Bisulfate (Plavix) 75 mg PO DAILY [facility] Last Admin: 05/12/17 11:32 Dose: 75 mg Escitalopram Oxalate (Lexapro) 10 mg PO DAILY [facility] Famotidine (Pepcid) 20 mg PO DAILY [facility] Last Admin: 05/12/17 09:21 Dose: 20 mg Gabapentin (Neurontin) 300 mg PO TID [facility] Last Admin: 05/12/17 20:14 Dose: Not Given Haloperidol (Haldol) 5 mg PO Q2H PRN PRN Reason: agitation max 4x/24h Last Admin: 05/10/17 21:43 Dose: 5 mg Hydroxyzine HCl (Atarax) 50 mg PO Q6H PRN PRN Reason: Anxiety Last Admin: 05/13/17 06:36 Dose: 50 mg Insulin Glargine (Lantus) 10 unit SC [facility] Last Admin: 05/12/17 21:02 Dose: 10 unit Insulin Human Regular (Novolin R) 0 unit SC [facility] PRN Reason: Protocol Last Admin: 05/12/17 21:01 Dose: Not Given Lisinopril (Zestril) 10 mg PO DAILY [facility] Last Admin: 05/10/17 13:12 Dose: Not Given Loperamide HCl (Imodium) 2 mg PO Q8 PRN PRN Reason: Diarrhea Last Admin: 05/12/17 16:18 Dose: 2 mg Lorazepam (Ativan) 1 mg PO Q6H PRN PRN Reason: Anxiety Last Admin: 05/13/17 06:36 Dose: 1 mg Methadone HCl (Methadone) 5 mg PO Q24H [facility] PRN Reason: Taper Stop: 05/15/17 09:29 Last Admin: 05/12/17 09:21 Dose: 10 mg Mirtazapine (Remeron) 15 mg PO [facility] Last Admin: 05/12/17 21:01 Dose: 15 mg Ondansetron HCl (Zofran Tab) 4 mg PO Q8 PRN PRN Reason: Nausea/Vomiting Last Admin: 05/10/17 12:57 Dose: 4 mg - Labs Labs: 05/13/17 08:21 05/13/17 08:21 - Constitutional Appears: Well, No Acute Distress - Head Exam Head Exam: ATRAUMATIC - Eye Exam Eye Exam: EOMI, Normal appearance - ENT Exam ENT Exam: Mucous Membranes Moist, Normal Exam - Respiratory Exam Respiratory Exam: Wheezes, NORMAL BREATHING PATTERN - Cardiovascular Exam Cardiovascular Exam: REGULAR RHYTHM, +S1, +S2 - GI/Abdominal Exam GI & Abdominal Exam: Soft, Normal Bowel Sounds - Extremities Exam Extremities Exam: Normal Capillary Refill, Normal Inspection. absent: Calf Tenderness - Neurological Exam Neurological Exam: Alert, Awake, Oriented x3 - Psychiatric Exam Psychiatric exam: Agitated, Anxious, Suicidal Ideation - Skin Skin Exam: Dry, Normal Color, Warm Assessment and Plan (1) REGGIE (acute kidney injury) Assessment & Plan: Improving Bun/Cr levels * Stable at 22/1.2 * Baseline Bun/Cr from previous admissions was 22/1.2 On admission Bun/Cr: 20/2.2 Patient continues to increase PO intake Status: Acute (2) Opiate withdrawal Assessment & Plan: Psychiatry consult, Dr. Peguero---> Help appreciated Heroin abuse * Management as per psychiatry * Methadone Taper * Clonidine as necessary Status: Acute (3) Suicidal ideation Assessment & Plan: Psychiatry Consult, Dr. Peguero--->Help appreciated * Management as per psychiatry Status: Acute (4) Bipolar affective disorder, mixed, severe, with psychotic behavior Assessment & Plan: Psychiatry consult, Dr. Peguero--> Help appreciated * Medical management as per psychiatry Status: Acute (5) Depression Assessment & Plan: Psychiatry Consult, Dr. Peguero---> Help appreciated * Medical management as per psychiatry's recommendation Status: Acute (6) Diabetes Assessment & Plan: HgbA1c(04/23/17): 7.2 (05/13/17): 7.6 Accuchecks ISS Lantus 10 units SC HS Heart healthy diet Continue to monitor Status: Acute (7) Hypertension Assessment & Plan: Clonidine 0.1mg PO Q8H PRN * Patient refused clonidine dose today due to allergies * Added Norvasc 5mg PO BID Lisinopril and Lasix held due to REGGIE. Status: Acute (8) Polysubstance abuse Assessment & Plan: Psychiatry consult, Dr. Peguero---> Help appreciated Heroin and cocaine abuse * Methadone Taper Status: Acute (9) History of coronary artery disease Assessment & Plan: Patient with history of CABG and MD in 2011 Continue home medication Aspirin 81 mg PO daily Continue home medication Plavix 75 mg PO daily Stop BB as patient is cocaine positive. Status: Acute (10) Prophylactic measure Assessment & Plan: Protonix 40 mg PO daily Ambulates Status: Acute
--- NOTE | 2017-05-13 09:51 | PCM.BM ---
Treatment Plan Problems - Problems identified on initial assessmt depression Date Initiated: 05/10/17 Time Initiated: 11:41 Status: Active substance abuse Date Initiated: 05/10/17 Time Initiated: 11:44 Assessment reference: NA Status: Active Treatment assets and liabiliti Patient Assests: adapts well, cooperative, ADL independent, negotiates basic needs Patient Liabilities: poor support system, substance abuse, legal issue - Milieu Protocol Maintain good personal hygiene: daily Encourage regular showers, daily Remind patient to perform daily oral care, daily Assist patient to perform ADL's Maintain personal safety: every shift Educate patient to report safety concerns to staff, every shift Monitor environment for contraband/sharps Medication safety: Monitor for expected outcome, potential side effects: every shift, Assess barriers to learning: every shift, Assess readiness for medication education: every shift Milieu Narrative: Some improvement with treatment Patient education Supportive therapy Dose of Seroquel was increased to 200 mg Continue rest of the treatment as before Patient wants to go to a residential energy auditor treatment program after discharge from the hospital for follow-up care Family Contact Family involvement: Patient does not wish Family/SO involvement Discharge/Continuing Care - Education Needs Education Needs: Patient Medication, Patient Coping Skills - Discharge Discharge Criteria: Tolerates medication w/o severe side effects Discharge to:: Home - Additional Comments Some improvement with treatment Patient education Supportive therapy Dose of Seroquel was increased to 200 mg Continue rest of the treatment as before Patient wants to go to a senior living treatment program after discharge from the hospital for follow-up care - Treatment Team Participation Patient/Family/SO Statement: Some improvement with treatment Patient education Supportive therapy Dose of Seroquel was increased to 200 mg Continue rest of the treatment as before Patient wants to go to a residential energy auditor treatment program after discharge from the hospital for follow-up care Discussed with Family/SO: No Was Patient/Family/SO present at Treatment Team Meeting: Yes
[2017-05-13] MEDS: (Novolin R) Insulin Human Regular 100 units/ml vial SC SCH (09:58)
--- NOTE | 2017-05-13 13:32 | PCM.PYCHDC ---
Mental Status Examination - Mental Status Examination Orientation: Person, Place, Situation, Time Memory: Intact Mood: Other (Irritable, angry) Speech: Loud (Yelling and cursing) Attention: Poor Concentration: Poor Association: WNL Fund of Knowledge: Poor Formal Thought Process: Paranoia Suicidal Ideation: No Current Homicidal Ideation?: No Discharge Summary - Discharge Note Reason for Hospitalization: Patient was admitted for treatment of depression, suicidal ideations, opioid use disorder and alcohol use disorder. Laboratory Data: Abnormal Lab Results 05/12/17 05/12/17 05/13/17 16:45 20:24 07:35 WBC RBC Hgb Hct MCV MCH MCHC RDW Plt Count MPV Neut % (Auto) Lymph % (Auto) [place] % (Auto) Eos % (Auto) Baso % (Auto) Neut # Lymph # [place] # Eos # Baso # Sodium Potassium Chloride Carbon Dioxide Anion Gap BUN Creatinine Est GFR ( Amer) Est GFR (Non-Af Amer) POC Glucose (mg/dL) 221 H 284 H 156 H Random Glucose Hemoglobin A1c Calcium Magnesium Total Bilirubin AST ALT Alkaline Phosphatase Total Protein Albumin Globulin Albumin/Globulin Ratio 05/13/17 05/13/17 05/13/17 08:21 08:21 08:21 WBC 9.3 RBC 4.07 L Hgb 11.1 L Hct 34.8 L MCV 85.3 MCH 27.2 MCHC 31.8 L RDW 16.8 H Plt Count 195 MPV 9.7 Neut % (Auto) 71.0 Lymph % (Auto) 20.2 [place] % (Auto) 7.0 Eos % (Auto) 0.9 Baso % (Auto) 0.9 Neut # 6.6 Lymph # 1.9 [place] # 0.7 Eos # 0.1 Baso # 0.1 Sodium 139 Potassium 4.8 Chloride 98 Carbon Dioxide 26 Anion Gap 19 BUN 22 H Creatinine 1.2 Est GFR ( Amer) > 60 Est GFR (Non-Af Amer) > 60 POC Glucose (mg/dL) Random Glucose 139 H Hemoglobin A1c 7.6 H Calcium 8.8 Magnesium 2.1 Total Bilirubin 0.4 AST 32 ALT 38 Alkaline Phosphatase 85 Total Protein 7.3 Albumin 3.7 Globulin 3.6 Albumin/Globulin Ratio 1.0 Consultations:: List each consultation separately and include: 1. Reason for request. 2. Findings. 3. Follow-up Summary of Hospital Course include:: 1. Description of specific treatment plan utilized for patients during their course of treatmen. 2. Summarize the time- course for resolution of acute symptoms and/or regressed behaviors. 3. Describe issues identified and worked on during hospitalization. 4. Describe medication utilized. 5. Describe medical problems identified and treated. 6. Reassessment of suicide risk Summary of Hospital Course: Upon admission: Patient is a 51 year old , single, homeless, unemployed, male with a hx of depression, suicidal ideations, opioid use disorder and alcohol use disorder was admitted for treatment of depression, opioid and alcohol use. Patient was admitted here 2 weeks ago and said that he "made a mistake by leaving". He is very agitated and aggressive. He reports that he had an unpleasant encounter in the ER with an ER doctor and states that he will "blow his brains out and leave a note for her". Patient was recently in the newspaper for threatening to shoot a doctor. He was arrested but released and has a court. He claims he did not threaten any dr and that he only said he would shoot himself if he were not given methadone,. Patient has suicidal ideation of walking in front of traffic or throwing himself off a bridge. Patient has hallucinations of shadows around windows and hears voices that say "seek, kill, destroy". Patient states - "I hate myself, and I've never felt this way before. I'm not capable of doing anything on my own and I've lost all my skills. I need to stay in a psych hospital". Patient plays [employer], claims that he played with [employer] - which is confirmed, and that he went to [place] (not confirmed). Patient reports that his 23 year old daughter overdosed in [place] in 2014 and that is when he started feeling depressed and using heroin. Psych hx: Heroin - 15-30 bags daily, starting in 2014 and last use was 05/08. Alcohol - Started drinking at 7 years of age and progressed to drink 750ml of Vodka daily, last use 05/09. Marijuana - 1 quarter ounce weekly, last use 1 week ago. Cocaine - 3 1/2 grams weekly, last use 1 week ago. Withdrawal symptoms - yawning, fatigue, stomach cramps, vomiting and diarrhea. Has been to detox once before and to rehab once before. Family psych hx: Mother had depression Medical hx: C4-5 herniated disc Social hx: single, homeless but occasionally lives with acquaintances, unemployed, no children now. Hospital course: The pt was admitted and started on treatment with psychotherapy, support, psychoeducation and medications. CO and CBT used. However, he was defensive and has minimal insight and motivation to change All the risks and benefits of medications are discussed He was extremely med-seeking, manipulative, staff-splitting, demanding, entitled and at times disruptive. Today, he was again angry. Patient is yelling, agitated, and cursing. He "I hate black people. I am not black. I am not a black Heffer or a n...." He claims that he police stole his guitar. He says "methadone is the only thing I want" but he was no longer in acute wdw, nevertheless real estate underwriter offered to extend his detox one more day, but he got upset with something else and demanded AMA d/ c Risks of doing that discussed, incl. relapse, OD and even but he did not chg his mind. He said he would go to [facility] and asked for a letter from the real estate underwriter (provided). - Final Diagnosis (DSM 5) Condition upon Discharge: IMPROVED DSM 5: Borderline Personality d/o r/o Antisocial Pers. d/o Bipolar Disorder mixed severe Cocaine use disorder moderate Opioid use disorder severe Opioid withdrawal Alcohol use disorder severe Disposition: AGAINST MEDICAL ADVICE Follow-up Treatment Plan: Use [facility] until starting at methadone program (or others) Follow after care plan as discussed. Use relapse prevention skills Return to ER or call 911 if suicidal, homicidal or symptoms relapse. Stay away from stress, alcohol and drugs. See primary doctor once a year. - Smoking Cessation Smoking Cessation Medication prescribed: No - Antipsychotic Medications Pt discharged on 2 or more routine antipsychotic medications: No
== END 2017-05-13 12:50 | disposition left against medical advice (07) | DRG 885 ==
LOC: C.ER 06:10 → C.5E 08:30
PROVIDERS: ADMIT Psychiatry & Neurology Psychiatry; ATTEND Psychiatry & Neurology Psychiatry
PROC: GZ3ZZZZ Medication Management (ICD-10-PCS; principal; 2017-05-10)
PROC: GZHZZZZ Group Psychotherapy (ICD-10-PCS; 2017-05-10)
PROC: GZ56ZZZ Individual Psychotherapy, Supportive (ICD-10-PCS; 2017-05-10)
PROC: HZ2ZZZZ Detoxification Services for Substance Abuse Treatment (ICD-10-PCS; 2017-05-10)
PROC: HZ59ZZZ Individual Psychotherapy for Substance Abuse Treatment, Supportive (ICD-10-PCS; 2017-05-10)
DX: F31.64 Bipolar disorder, current episode mixed, severe, with psychotic features (principal); F11.23 Opioid dependence with withdrawal; N17.9 Acute kidney failure, unspecified; R45.851 Suicidal ideations; F14.90 Cocaine use, unspecified, uncomplicated; E86.0 Dehydration; E11.9 Type 2 diabetes mellitus without complications; I50.9 Heart failure, unspecified; I11.0 Hypertensive heart disease with heart failure; F20.9 Schizophrenia, unspecified; F17.210 Nicotine dependence, cigarettes, uncomplicated; I25.10 Atherosclerotic heart disease of native coronary artery without angina pectoris; E78.5 Hyperlipidemia, unspecified; Z95.1 Presence of aortocoronary bypass graft; Z95.5 Presence of coronary angioplasty implant and graft; Z59.0 Homelessness; Z86.718 Personal history of other venous thrombosis and embolism; Z79.82 Long term (current) use of aspirin; Z79.4 Long term (current) use of insulin; I25.2 Old myocardial infarction

== ENCOUNTER 2017-05-15 04:41 | Emergency (ER) | payer MEDICARE, MEDICAID ==
--- NOTE | 2017-05-15 06:11 | C.PDOC ---
History Of Present Illness A 51 y/o M brought in EMS for walking into traffic stating "he wants to kill himself". Denies homicidal ideation or any physical complaints at this time. Pt was admitted a couple of days ago for the same condition. Time Seen by Provider: 05/15/17 06:10 History Per: Patient History/Exam Limitations: no limitations Onset/Duration Of Symptoms: Hrs Current Symptoms Are (Timing): Still Present Suicide/Self Injury Attempted (Context): Other (Walking into traffic) Modifying Factor(s): None Severity: None Pain Scale Rating Of: 0 Associated Symptoms: Depression, Suicidal Thoughts, Suicidal Plan (Walking into traffic) Involuntary Hold By: None Recent travel outside of the [place]: No Additional History Per: EMS Past Medical History Reviewed: Historical Data, Nursing Documentation, Vital Signs - Medical History PMH: CHF, Diabetes, HTN, Seizures (alcohol withdrawal) Denies: Anxiety, Atrial Fibrillation, Bipolar Disorder, Cardia Arrhythmia, Depression, Hepatitis, HIV, Chronic Kidney Disease, Schizophrenia, Sexually Transmitted Disease Surgical History: CABG, Coronary Stent Denies: Pacemaker - [facility] Procedures DETOXIFICATION SERVICES FOR SUBSTANCE ABUSE TREATMENT (04/20/17) GROUP PSYCHOTHERAPY (04/20/17) INDIV PSYCHOTHERAPY FOR SUBSTANCE ABUSE TREATMENT, SUPPORT (04/20/17) INDIVIDUAL PSYCHOTHERAPY, SUPPORTIVE (04/20/17) MEDICATION MANAGEMENT (04/20/17) Family History: States: Unknown Family Hx - Social History Hx Alcohol Use: No Hx Substance Use: Yes - Immunization History Hx Tetanus Toxoid Vaccination: Yes Hx Influenza Vaccination: Yes Hx Pneumococcal Vaccination: Yes Review Of Systems Constitutional: Negative for: Fever, Chills ENT: Negative for: Throat Pain Cardiovascular: Negative for: Chest Pain Respiratory: Negative for: Shortness of Breath Gastrointestinal: Negative for: Nausea, Vomiting, Abdominal Pain Genitourinary: Negative for: Dysuria Musculoskeletal: Negative for: Back Pain Skin: Negative for: Rash Neurological: Negative for: Weakness Psych: Positive for: Depression, Suicidal ideation. Negative for: Other ( Homicidal ideation) Physical Exam - Physical Exam Appears: Non-toxic, No Acute Distress, Other (Bizarre) Skin: Warm, Dry Head: Normacephalic Eye(s): bilateral: Normal Inspection Cardiovascular: Rhythm Regular Respiratory: No Rales, No Rhonchi, No Wheezing Gastrointestinal/Abdominal: Soft, No Tenderness Extremity: Normal ROM Extremity: Bilateral: Atraumatic Neurological/Psych: Oriented x3, Normal Speech, Other (Awake and alert. NO focal deficit) Gait: Steady ED Course And Treatment Pulse Ox Interpretation: Normal Disposition Counseled Patient/Family Regarding: Studies Performed, Diagnosis - Disposition Disposition Time: 06:11 Condition: FAIR - Clinical Impression Clinical Impression: Depression - Scribe Statement The provider has reviewed the documentation as recorded by the Scribe Raegan bran All medical record entries made by the Scribe were at my direction and personally dictated by me. I have reviewed the chart and agree that the record accurately reflects my personal performance of the history, physical exam, medical decision making, and the department course for this patient. I have also personally directed, reviewed, and agree with the discharge instructions and disposition. Physician Patient Turnover Patient Signed Over To: Anita Irizarry Handoff Comments: pending labs , crisis eval and disposition
[2017-05-15 06:14] VITALS: BMI 41.2
[2017-05-15 06:57] LABS: CHLORIDE 99 mmol/L (98-107); POTASSIUM 4.3 mmol/L (3.6-5.2); SODIUM 135 mmol/L (132-148)
[2017-05-15 06:59] LABS: CARBON DIOXIDE 24 mmol/L (22-30); GFR AFRICAN-AMERICAN > 60
[2017-05-15 07:00] LABS: ALKALINE PHOSPHATASE 43 U/L (38-126); ALT/SGPT 31 U/L (21-72); AST/SGOT 35 U/L (17-59); BILIRUBIN,TOTAL 0.6 mg/dL (0.2-1.3); BLOOD UREA NITROGEN 17 mg/dL (9-20); CALCIUM 8.1 mg/dl (8.6-10.4); GLUCOSE,RANDOM 160 mg/dL (75-110)
[2017-05-15 07:01] LABS: ALCOHOL SERUM < 10 mg/dl (0-10)
[2017-05-15 07:21] LABS: ALB/GLOB RATIO 0.9 (1.0-2.1)
[2017-05-15 07:49] LABS: BASO # 0.1 K/uL (0.0-0.2); BASO % 0.7 % (0.0-2.0); EOS % 0.3 % (0.0-4.0); HEMATOCRIT 30.7 % (35.0-51.0); LYMPH # 1.6 K/uL (1.0-4.3); LYMPH % 19.8 % (20.0-40.0); MEAN CELL VOLUME 83.9 fL (80.0-94.0); MEAN CORPUSCULAR HEMOGLOBIN 27.2 pg (27.0-31.0); MEAN CORPUSCULAR HGB CONC 32.4 g/dL (33.0-37.0); MEAN PLATELET VOLUME 8.5 fL (7.2-11.7); MONO # 0.6 K/uL (0.0-0.8); MONO % 7.5 % (0.0-10.0); RED CELL DISTRIBUTION WIDTH 16.4 % (11.5-14.5); WHITE BLOOD COUNT 8.3 K/uL (4.8-10.8)
[2017-05-15 08:49] LABS: RBC URINE < 1 /hpf (0-3); URINE BILIRUBIN NEGATIVE (NEGATIVE); URINE BLOOD NEGATIVE (NEGATIVE); URINE COLOR Yellow (YELLOW); URINE GLUCOSE (UA) 1+ mg/dL (Normal); URINE KETONE NEGATIVE (NEGATIVE); URINE LEUKOCYTE ESTERASE NEG Leu/uL (Negative); URINE PROTEIN NEGATIVE (NEGATIVE); URINE UROBILINOGEN NORMAL mg/dL (0.2-1.0); WBC URINE < 1 /hpf (0-5)
--- NOTE | 2017-05-15 09:06 | RAD ---
PROCEDURE: CHEST RADIOGRAPH, 1 VIEW HISTORY: Detox/Psy COMPARISON: 05/10/2017 FINDINGS: LUNGS: The lungs are well inflated and clear. There is mild pulmonary venous congestion. No pneumothorax or pleural fluid seen. CARDIOVASCULAR: The heart is normal in size. Status post CABG. OSSEOUS STRUCTURES: No significant abnormalities. VISUALIZED UPPER ABDOMEN: Normal. OTHER FINDINGS: None. IMPRESSION: No active pulmonary disease.
[2017-05-15 12:43] VITALS: BP 104/45; PULSE 91; RESP 20; TEMP 98.6; O2SAT 98
--- NOTE | 2017-05-17 12:43 | CARD ---
APPROVED REPORT EKG Measurement Heart [id number] ID [id number] <Conclusion> Normal sinus rhythm Normal ECG
== END 2017-05-15 13:55 | disposition short-term general hospital (02) ==
LOC: C.ER 04:41
DX: F32.89 Other specified depressive episodes (principal); R45.851 Suicidal ideations
CPT/HCPCS: 71010; 80053; 81001; 85025; 93005; 99284; G0480